=== PATIENT | female | born 1955 | race Caucasian/White ===

== ENCOUNTER → 2016-10-15 | Outpatient (CLI) | payer OTHER ==
[2016-08-26 14:27] VITALS: BP 154/82
[~2016-10-15] MED LIST: ALPR0.5T6 PO; AMLO2.5T PO; ASPI81TA2 PO; ATOR40TA59 PO; AZEL205.2 NS; CEFP200T PO; CHOL10002 PO; CLOP75TA PO; DEXA4TAB PO; DOXY100T PO; FOLI1TAB16 PO; INSU100I13 SQ; INSU200I SQ; LEVO100T5 PO; LISI40TA PO; METO50TA2 PO; ONDA8TAB12 PO; SERT100T8 PO; VENTOLIN HFA18 GM IH; VENTOLIN HFA18 GM INH; VITA100T7 PO
--- NOTE | 2016-10-15 12:39 | CARD ---
APPROVED REPORT EXAM: Two-dimensional and M-mode echocardiogram with Doppler and color Doppler. Other Information Quality : Good INDICATION Lung Cancer 2D DIMENSIONS RVDd3.1 (2.9-3.5cm)Left Atrium(2D)3.3 (1.6-4.0cm) IVSd1.1 (0.7-1.1cm)Aortic Root(2D)3.1 (2.0-3.7cm) LVDd4.5 (3.9-5.9cm)LVOT Diameter2.0 (1.8-2.4cm) PWd1.1 (0.7-1.1cm)LVDs3.2 (2.5-4.0cm) FS (%) 29.3 %SV53.4 ml LVEF(%)56.3 (>50%) Aortic Valve AoV Peak Harvinder.152.0cm/sAoV VTI30.9cm AO Peak GR.9.2mmHgLVOT Peak Harvinder.77.0cm/s LVOT VTI 18.88cmAO Mean GR.5mmHg MESHA (VMAX)1.27jr4TOR (VTI)1.90cm2 Mitral Valve MV E Lnbtmtxk70.1cm/sMV DECEL OETK010vj MV A Ivfmnspl48.3cm/sMV FYK45qo E/A Ratio0.8MVA (PHT)2.77cm2 TDI E/Lateral E'19.8E/Medial E'17.4 Tricuspid Valve TR P. Pnfwkqcq517jg/sRAP UTYVOGPT2naJy TR Peak Gr.33jpWsLVXY19vyTb Pulmonary Vein S1 Vgusynws79.7cm/sD2 Exgeeoya61.6cm/s PVa jsqayxhw451qzgu LEFT VENTRICLE The left ventricle is normal size. There is normal left ventricular wall thickness. The left ventricu lar systolic function is normal and the ejection fraction is within normal range. The Ejection Fracti on is 55-60%. There is normal LV segmental wall motion. Transmitral Doppler flow pattern is Grade I-a bnormal relaxation pattern. RIGHT VENTRICLE The right ventricle is normal size. The right ventricular systolic function is normal. ATRIA The left atrium size is normal. The right atrium size is normal. The interatrial septum is intact wit h no evidence for an atrial septal defect or patent foramen ovale as noted on 2-D or Doppler imaging. AORTIC VALVE The aortic valve is calcified but opens well. Doppler and Color Flow revealed no significant aortic r egurgitation. There is no significant aortic valvular stenosis. MITRAL VALVE The mitral valve is normal in structure and function. There is no evidence of mitral valve prolapse. There is no mitral valve stenosis. Doppler and Color-flow revealed mild mitral regurgitation. TRICUSPID VALVE The tricuspid valve is normal in structure and function. Doppler and Color Flow revealed mild tricusp id regurgitation. There is mild pulmonary hypertension. The PA pressure was estimated at 32 mmHg. The re is no tricuspid valve stenosis. PULMONIC VALVE The pulmonary valve is normal in structure and function. Doppler and Color Flow revealed trace to mil d pulmonic valvular regurgitation. There is no pulmonic valvular stenosis. GREAT VESSELS The aortic root is normal in size. The ascending aorta is normal in size. The IVC is dilated and diana apses >50% with inspiration. PERICARDIAL EFFUSION There is a large circumferential pericardial effusion without clear evidence of tamponade. Critical Notification Critical Value: No <Conclusion> The left ventricular systolic function is normal and the ejection fraction is within normal range. Th e Ejection Fraction is 55-60%. There is normal LV segmental wall motion. There is a large circumferential pericardial effusion without clear evidence of tamponade.
== END | disposition home or self-care (01) ==
LOC: ECHO 07:33
PROVIDERS: ATTEND Internal Medicine Hematology & Oncology
DX: I70.0 Atherosclerosis of aorta (principal); I34.0 Nonrheumatic mitral (valve) insufficiency; I27.2 Other secondary pulmonary hypertension; I07.1 Rheumatic tricuspid insufficiency; Z85.118 Personal history of other malignant neoplasm of bronchus and lung
CPT/HCPCS: 93306

== ENCOUNTER 2016-10-21 06:29 | Outpatient (CLI) | payer OTHER ==
[~2016-10-21] VITALS: Ht 177.8 cm; Wt 109.3 kg
[2016-10-21] VITALS (10 sets, daily range): BP systolic 144–177; BP diastolic 75–92
[~2016-10-21 06:29] MED LIST changes: +CLON0.1T PO; +FEXO1TAB31 PO; +FURO-69 PO; +HYDR1TAB12 PO
[2016-10-21 07:00] LABS: HEMATOCRIT 29.5 % (36.0-47.0); HEMOGLOBIN 9.8 g/dL (12.0-15.5); RED BLOOD COUNT 2.8 x10^6/uL (3.50-5.40); RED CELL DISTRIBUTION WIDTH 16.4 % (11.5-14.5)
[2016-10-21 07:04] LABS: CALCIUM 9.1 mg/dL (8.5-10.1); CREATININE 1.8 mg/dL (0.6-1.0); GFR 28.5; POTASSIUM 4.4 mmol/L (3.5-5.1)
[2016-10-21 07:11] LABS: INR 1.2 (0.8-1.1); PROTHROMBIN TIME PATIENT 14.7 SEC (11.7-14.0)
[2016-10-21] MEDS ORDERED: MIDAZOLAM HCL/PF 5 MG/5 ML VIAL ONE (08:04)
[2016-10-21] MEDS ORDERED: FENTANYL PF 250 MCG/5 ML VIAL. ONE (08:04)
[2016-10-21] MEDS ORDERED: LIDOCAINE 2% 20 ML VIAL. ONE (08:28)
--- NOTE | 2016-10-21 08:29 | PDOC ---
MODERATE SEDATION ASSESSMENT RISKS/ALTERNATIVES Risks/Alternatives Risks and alternatives of this type of sedation and procedure discussed with: RISK/ALTERNATIVES: Patient H & P ON CHART H & P H & P on chart and reviewed for co-morbid conditions and appropriate labs. H&P ON CHART: Yes STATUS PREG STATUS ASSESSED: N/A MEDS/ALLERGIES REVIEWED Meds/Allergies Reviewed Medications and Allergies including time and route of recently administered narcotics and sedatives. MEDS/ALLERGIES REVIEWED: Yes ASA RATING ASA RATING: III AIRWAY ASSESSMENT Airway Assessment Airway patency, oral function limitations, presence of caps, crowns, dentures, partials, and ability to extend neck assessed. AIRWAY ASSESSMENT: Yes MALLAMPATI SCORE MALLAMPATI SCORE: II PRE-SEDATION ASSESSMENT PRE-SEDATION ASSESSMENT: Yes NOVA WRIGHT MD Oct 21, 2016 08:29
[2016-10-21] MEDS ORDERED: FENTANYL PF 250 MCG/5 ML VIAL. IV ONE (08:45)
[2016-10-21] MEDS ORDERED: MIDAZOLAM HCL/PF 5 MG/5 ML VIAL IV ONE (08:45)
[2016-10-21] MEDS ORDERED: LIDOCAINE 2% 20 ML VIAL. IJ ONE (08:45)
--- NOTE | 2016-10-21 09:49 | CARD ---
APPROVED REPORT Procedure(s) performed: Pericardiocentesis HISTORY The patient is a 61 year-old female with a history of : metastatic lung cancer presenting for diagnos tic and therapeutic pericardiocentesis. . PROCEDURE NARRATIVE After appropriate informed consent and exhalation of the risks and benefits of the procedure the von ent was brought to the catheterization laboratory. Preprocedural echocardiography from a subcostal v iew demonstrated a 27 m circumferential pericardial effusion. Therefore the procedure was then start ed. The subcostal area and the chest wall were prepped in usual sterile fashion. Subsequently, a 22 -gauge needle was used to anesthetize the skin and subcutaneous structures with 2% lidocaine. Next a n 18-gauge needle was used to enter the pericardial space and clear fluid was drawn. Subsequently a 0.035 inch guidewire was advanced through the pericardial space and placement was confirmed with fluo roscopy. Next, a 12 Romanian pericardial catheter was placed in the ParaGardand the excess fluid was r emoved. Approximately 900 mL of straw-colored fluid was removed and post pericardiocentesis echocard iogram demonstrated resolution of the effusion. The patient tolerated the procedure well and there w ere no immediate complications. The pericardial drain was then removed and the entry site was covere d with sterile dressing. Conclusion Successful pericardiocentesis via the subcostal approach with removal approximately 900 mL of straw-c olored fluid sent for cytology and laboratory analysis. Recommendations Primary referring primary oncologist Dr. Ibarra
--- NOTE | 2016-10-21 10:41 | RAD ---
EXAM: Chest, single view. HISTORY: Paracentesis. COMPARISON: 02/05/2016. FINDINGS: A frontal view of the chest is obtained. There are small right and ohznz-pg-gccfarie left pleural effusions, similar compared to the prior study. There is bilateral lower lobe atelectasis. The cardiac silhouette is upper normal in size, likely due to portable technique.. There is a right chest wall port catheter with the tip in the superior cavoatrial junction. IMPRESSION: Stable small right and tbfsx-qo-zrzbsxzn left pleural effusions with lower lobe atelectasis.
[2016-10-21 12:33] LABS: BF CLARITY CLEAR; BF COLOR YELLOW
[2016-10-21] MEDS ORDERED: HEPARIN PF 500 UNIT/5 ML DISP.SYRIN. IV ONE ×2 (12:42→12:45)
--- NOTE | 2016-10-21 13:14 | CARD ---
APPROVED REPORT EXAM: Two-dimensional subcostal and apical limited echocardiogram Other Information Quality : GoodHR: 99bpm Rhythm : NSR INDICATION Pericardial Effusion GREAT VESSELS Not assessed PERICARDIAL EFFUSION There is a large circumferential pericardial effusion. Critical Notification Critical Value: No <Conclusion> Limited subcost pictures reveal large pericardial effusion pre-procedure.
--- NOTE | 2016-10-21 13:15 | CARD ---
APPROVED REPORT EXAM: Two-dimensional and M-mode echocardiogram with Doppler and color Doppler. Other Information Quality : GoodHR: 64bpm Rhythm : NSR INDICATION Pre-Op S/P pericardiocenthesis GREAT VESSELS Not assessed PERICARDIAL EFFUSION There is no evidence of significant pericardial effusion. Critical Notification Critical Value: No <Conclusion> Post pericardiocentesis limited subcostal and apical images demonstrate no evidence of effusion.
--- NOTE | 2016-10-25 13:21 | PATHOLOGY ---
CYTOPATHOLOGY REPORT CLINICAL HISTORY: Pericardial effusion. SPECIMEN(S) RECEIVED: A.Pericardial fluid FINAL DIAGNOSIS: Pericardial fluid, ThinPrep and cell block: - Atypical cells identified. - Focally atypical reactive mesothelial cells and few inflammatory cells identified. COMMENT: Sections of the pericardial fluid reveal a few atypical cells, focally reactive mesothelial cells, and few inflammatory cells. Immunoperoxidase stains for Tag72 and calretinin are obtained on the cell block and yields the following results: Calretinin: atypical cells positive Tag72: atypical cells negative The immunophenotypic findings are supportive of the diagnosis of atypical reactive mesothelial cells. There is no evidence of malignancy. (JPM:all:mgr; d/t: 10/25/2016) Special Stains Performed: Immunoperoxidase stains for Calretinin, B72.3. PATHOLOGIST: Yahir Falcon M.D. REPORT ELECTRONICALLY SIGNED BY: Yahir Falcon M.D. DATE/TIME: 10/25/2016 13:20 GROSS PATHOLOGY: A. Pericardial fluid: The specimen is submitted unfixed, labeled "Roselyn Landeros". Received by the Cytology Department is 45 mL of clear yellow fluid. One ThinPrep slide and a cell block were prepared. (clt 10.21.2016) CORE CHECKER(S): DAVID Smith([facility]) INITIAL CPT CODE(S): A; 91438, 57949, 77856, 06419 Professional services performed [place] [facility] [place] [address] Technical services performed by [facility] at [address] [place] [address], [address], [place] [address]. CC: Dr. Joseph Rizzo PATIENT: ROSELYN LANDEROS /AGE: 1 1955 (Age: 61) SEX: F PATIENT #: [id number] ALT CASE #: SPECIMEN COLLECTION DATE: 10/21/2016 SPECIMEN RECEIVED DATE: 10/21/[address] [facility] [address] [place] [address], [address] [place] [address] PHONE: [phone] DIRECTOR: Dakota Barnes M.D. * * * END OF REPORT * * *
== END 2016-10-21 13:00 | disposition home or self-care (01) ==
LOC: CCL 06:29
PROVIDERS: ATTEND Internal Medicine Cardiovascular Disease
DX: I31.3 Pericardial effusion (noninflammatory) (principal); I50.9 Heart failure, unspecified; I10 Essential (primary) hypertension; E11.9 Type 2 diabetes mellitus without complications; E03.9 Hypothyroidism, unspecified; F41.9 Anxiety disorder, unspecified; F32.9 Major depressive disorder, single episode, unspecified; F17.200 Nicotine dependence, unspecified, uncomplicated; D64.9 Anemia, unspecified; Z08 Encounter for follow-up examination after completed treatment for malignant neoplasm
CPT/HCPCS: 36415; 71010; 80048; 82945; 83615; 83986; 84157; 85027; 85610; 85730; 87071; 87075; 87205; 88112; 88305; 88341; 88342; 89050; 93306; 93308; C1892; J2250; J3010; G0641

== ENCOUNTER → 2016-12-06 | Outpatient (CLI) | payer OTHER ==
[2016-10-21 07:07] VITALS: BP 163/87
[~2016-12-06] MED LIST changes: +IOHEXOL 240 MG/ML 50ML VIAL. PO ONE
--- NOTE | 2016-12-06 12:21 | RAD ---
CT of the chest, abdomen and pelvis without contrast, 12/06/2016: History: Lung cancer Multidetector CT imaging was performed without IV contrast as requested. Oral contrast material was given for GI tract opacification. Comparison is made to a study from 10/06/2016. There is a large pericardial effusion similar to that seen on the previous study. A right Port-A-Cath extends to the level of the atriocaval junction. There is calcific plaquing of the aorta and coronary arteries. No mediastinal adenopathy is seen. There is a small to moderate volume of bilateral pleural fluid. On the left there is ongoing partial atelectasis and infiltrate in the left lower lobe. This is unchanged since the previous study. The left upper lobe is well expanded with only minimal scarring or atelectasis in the inferior lingular region. There is mild scarring over the pulmonary apices. A few additional scattered linear parenchymal scars are seen. There is only mild atelectasis posteriorly in the right lower lobe associated with the right pleural effusion. The unopacified liver shows no abnormality. No gallbladder abnormality is seen. The pancreas is unremarkable. The spleen is of normal size. The unopacified kidneys show no abnormality. No adrenal abnormality is detected. There is moderate aortoiliac calcific plaquing. No abdominal or pelvic adenopathy is seen. The bowel loops are not dilated. No free fluid is evident in the abdomen or pelvis. There appears to be mild ongoing edema and congestion in the mesentery. There is mild subcutaneous edema in the flank regions. Scattered blastic bony lesions are seen, most prominent in the pelvis. These appear to be unchanged. IMPRESSION: 1. Unchanged large pericardial effusion. 2. Unchanged small to moderate size bilateral pleural effusions. 3. Moderate underlying atelectasis and consolidation in the left lower lobe also appears unchanged. 4. Stable blastic bony metastatic disease. PQRS Compliance Statement: One or more of the following individualized dose reduction techniques were utilized for this examination: 1. Automated exposure control 2. Adjustment of the mA and/or kV according to patient size 3. Use of iterative reconstruction technique
== END | disposition home or self-care (01) ==
LOC: CT 09:07
PROVIDERS: ATTEND Internal Medicine Hematology & Oncology
DX: C79.51 Secondary malignant neoplasm of bone (principal); I31.3 Pericardial effusion (noninflammatory); J90 Pleural effusion, not elsewhere classified; J98.11 Atelectasis; C34.12 Malignant neoplasm of upper lobe, left bronchus or lung
CPT/HCPCS: 71250; 74176; Q9966

== ENCOUNTER → 2017-02-18 | Outpatient (CLI) | payer OTHER ==
[2016-10-21 07:07] VITALS: BP 163/87
[~2017-02-18] MED LIST changes: -IOHEXOL 240 MG/ML 50ML VIAL. PO ONE
--- NOTE | 2017-02-18 14:29 | CARD ---
APPROVED REPORT EXAM: Two-dimensional and M-mode echocardiogram with Doppler and color Doppler. Other Information Quality : GoodHR: 80bpm Rhythm : NSR INDICATION Pericardial effusion 2D DIMENSIONS RVDd3.0 (2.9-3.5cm)Left Atrium(2D)4.0 (1.6-4.0cm) IVSd1.3 (0.7-1.1cm)Aortic Root(2D)3.2 (2.0-3.7cm) LVDd4.7 (3.9-5.9cm)LVOT Diameter2.3 (1.8-2.4cm) PWd1.3 (0.7-1.1cm)LVDs3.4 (2.5-4.0cm) FS (%) 27.1 %SV54.0 ml LVEF(%)52.7 (>50%) Aortic Valve AoV Peak Harvinder.175.2cm/sAoV VTI37.5cm AO Peak GR.12.3mmHgLVOT Peak Harvinder.87.5cm/s AO Mean GR.7mmHgAVA (VMAX)2.02cm2 Mitral Valve MV E Fzmgtfnz980.7cm/sMV E Peak Gr.7mmHg MV DECEL [id number] A Lzzomdfn940.8cm/s MV E Mean Gr.3mmHgE/A Ratio0.9 MV A Cbfeggjg97ef Pulmonary Valve PV Peak Rbxvqdva38.7cm/s Tricuspid Valve TR P. Bhapbanj762qz/sTR Peak Gr.28mmHg Pulmonary Vein S1 Rvrhhner24.5cm/sD2 Rcxtlojo41.3cm/s PVa czjhppnr69wjty LEFT VENTRICLE The left ventricle is normal size. There is normal left ventricular wall thickness. The left ventricu lar systolic function is normal and the ejection fraction is within normal range. The Ejection Fracti on is 55-60%. RIGHT VENTRICLE The right ventricle is normal size. There is normal right ventricular wall thickness. The right ventr icular systolic function is normal. ATRIA The left atrium is mildly dilated. The right atrium size is normal. The interatrial septum is intact with no evidence for an atrial septal defect or patent foramen ovale as noted on 2-D or Doppler imagi ng. AORTIC VALVE The aortic valve is mildly sclerotic. The aortic valve is trileaflet. Doppler and Color Flow revealed no significant aortic regurgitation. There is no significant aortic valvular stenosis. MITRAL VALVE The mitral valve leaflets are mildly thickened. There is no evidence of mitral valve prolapse. There is no mitral valve stenosis. Doppler and Color Flow revealed mild to moderate mitral regurgitation. TRICUSPID VALVE Doppler and Color Flow revealed mild tricuspid regurgitation. The pulmonary artery systolic pressure is estimated at 31 mmHg. There is mild pulmonary hypertension. PULMONIC VALVE Doppler and Color Flow revealed trace pulmonic valvular regurgitation. There is no pulmonic valvular stenosis. GREAT VESSELS The aortic root is normal in size. The ascending aorta is normal in size. The pulmonary artery is nor mal. The IVC is normal in size and collapses >50% with inspiration. PERICARDIAL EFFUSION There is a large circumferential pericardial effusion. There is evidence of mild diastolic compressio n of the right atrium. Critical Notification Physician Notified Date: 02/18/2017 Time: 14:07 Physician Name:Luca Arellano Critical Value: Yes <Conclusion> The left ventricular systolic function is normal and the ejection fraction is within normal range. Th e Ejection Fraction is 55-60%. There is a large circumferential pericardial effusion. There is evidence of mild diastolic compressio n of the right atrium.
== END | disposition home or self-care (01) ==
LOC: ECHO 12:33
PROVIDERS: ATTEND Internal Medicine Cardiovascular Disease
DX: I08.1 Rheumatic disorders of both mitral and tricuspid valves (principal)
CPT/HCPCS: 93306

== ENCOUNTER → 2017-02-24 | Outpatient (CLI) | payer OTHER ==
[2016-10-21 07:07] VITALS: BP 163/87
[~2017-02-24] MED LIST changes: +AMLO10TA2 PO; +CALC600T4 PO; +INSU100V10 IJ; +IOHEXOL 240 MG/ML 50ML VIAL. PO ONE; +LEVO175T5 PO
--- NOTE | 2017-02-24 11:37 | RAD ---
Examination: CT chest abdomen pelvis without contrast History: History of malignant neoplasm of the upper lobe lung, follow-up Comparison: 12/06/2016 Technique: Axial CT images of the chest abdomen pelvis were performed without contrast. Coronal, Sagittal reformats were performed PQRS Compliance Statement: One or more of the following individualized dose reduction techniques were utilized for this examination: 1. Automated exposure control 2. Adjustment of the mA and/or kV according to patient size 3. Use of iterative reconstruction technique Findings: Right-sided Port-A-Cath is identified. Mild cardiomegaly. Diffuse aortic calcifications identified A large pericardial effusion again identified. Mild emphysematous changes identified in the apical lungs. 3 mm nodule identified in the right lower lobe of the lungs similar to prior exam. Small bilateral pleural effusions with bibasal lung airspace opacities likely atelectasis or infiltrate at grossly similar to prior exam. Consolidation changes identified in the left lung base is unchanged compared to prior exam. Examination is limited lack of IV contrast. The visualized noncontrasted liver, spleen, adrenals grossly appears unremarkable. The gallbladder is mildly distended. The stomach is mildly distended. The visualized pancreas grossly appears unremarkable. The small bowel is nondilated. Feces and gas noted throughout the colon. Few sigmoid colon diverticulosis identified. Mild mesenteric edema identified with presacral fat stranding identified in the region of the pelvis grossly similar to prior exam, nonspecific. The urinary bladder is mildly distended. There is mild thickened appearance of the wall of the sigmoid colon. Moderate aortic atherosclerosis. Sclerotic lesions identified in the sacrum and left iliac bone and right ischium grossly similar to prior exam. Sclerotic density is identified in the T5, T7 and T11 vertebral bodies are similar to prior exam probably metastasis. Impression: 1. Unchanged large pericardial effusion. 2. Small bibasal pleural effusions with left lower lobe lung consolidation changes grossly similar to prior exam. 3. Mild thickened appearance of the wall of the sigmoid colon is similar to prior exam, nonspecific could be chronic changes however colitis is not completely excluded. There is some fat stranding identified in the presacral region grossly similar to prior exam. 4. Stable sclerotic bony metastatic lesions.
== END | disposition home or self-care (01) ==
LOC: CT 08:43
PROVIDERS: ATTEND Internal Medicine Hematology & Oncology
DX: C34.12 Malignant neoplasm of upper lobe, left bronchus or lung (principal); C79.51 Secondary malignant neoplasm of bone
CPT/HCPCS: 71250; 74176; Q9966

== ENCOUNTER → 2017-02-24 | Outpatient (CLI) | payer OTHER ==
[2016-10-21 07:07] VITALS: BP 163/87
[~2017-02-24] MED LIST changes: -IOHEXOL 240 MG/ML 50ML VIAL. PO ONE
[2017-02-24 14:03] LABS: BASO % 1 % (0-3); EOS % 3 % (0-3); HEMATOCRIT 27.9 % (36.0-47.0); HEMOGLOBIN 9.4 g/dL (12.0-15.5); LYMPH # 0.8 x10^3/uL (1.0-4.8); LYMPH % 19 % (24-48); MEAN CORPUSCULAR HEMOGLOBIN 32 pg (25-35); MEAN CORPUSCULAR HGB CONC 34 g/dL (31-37); MEAN CORPUSCULAR VOLUME 95 fL (79-100); MONO % 11 % (0-9); NEUT % 66 % (31-73); PLATELET COUNT 169 x10^3/uL (140-400); RED BLOOD COUNT 2.95 x10^6/uL (3.50-5.40); RED CELL DISTRIBUTION WIDTH 14.3 % (11.5-14.5); WHITE BLOOD COUNT 4.4 x10^3/uL (4.0-11.0)
[2017-02-24 14:15] LABS: POTASSIUM 4.3 mmol/L (3.5-5.1)
== END | disposition home or self-care (01) ==
LOC: SURGPAT 13:05
PROVIDERS: ATTEND Thoracic Surgery (Cardiothoracic Vascular Surgery)
DX: Z01.812 Encounter for preprocedural laboratory examination (principal)
CPT/HCPCS: 36415; 80051; 85027

== ENCOUNTER 2017-02-25 07:14 | Inpatient (IN) | payer OTHER ==
[~2017-02-25] VITALS: Ht 177.8 cm; Wt 99.8 kg
[2017-02-25] VITALS (12 sets, daily range): BP systolic 137–164; BP diastolic 60–73
[~2017-02-25 07:14] MED LIST changes: -AMLO10TA2 PO; +HYDROmorphone 2 MG/ML VIAL IV PRN; +IV RINGERS,LACTATED 1000ML 1,000 ML IV SCH; +LIDOCAINE 1% 1 ML SYRINGE. ID PRN; +ONDANSETRON PF 4 MG/2 ML VIAL. IV PRN; +PROCHLORPERAZINE 10 MG/2 ML VIAL. IV PRN; +fentaNYL PF VIAL 100 MCG/2 ML VIAL IV PRN
[2017-02-25] MEDS ORDERED: LIDOCAINE 2% PF Vial for OR 5 ML VIAL. ONE (08:24)
[2017-02-25] MEDS ORDERED: PROPOFOL 0 ML IV ONE (08:24)
[2017-02-25] MEDS ORDERED: BUPIVACAINE 0.5% 50 ML VIAL. ONE (09:06)
[2017-02-25] MEDS ORDERED: LIDOCAINE 1% 20 ML VIAL. ONE (09:07)
[2017-02-25] MEDS ORDERED: ONDANSETRON PF 4 MG/2 ML VIAL. ONE ×2 (09:21→10:14)
[2017-02-25] MEDS ORDERED: fentaNYL PF VIAL 100 MCG/2 ML VIAL ONE (09:21)
[2017-02-25] MEDS ORDERED: ROCURONIUM 50 MG/5 ML VIAL. ONE (09:21)
[2017-02-25] MEDS ORDERED: ETOMIDATE 20 MG/10 ML VIAL. IV ONE (09:44)
[2017-02-25] MEDS ORDERED: SUCCINYLCHOLINE 200 MG/10 ML VIAL. ONE (09:44)
[2017-02-25] MEDS ORDERED: MIDAZOLAM HCL/PF 2 MG/2 ML VIAL. ONE (09:49)
[2017-02-25] MEDS ORDERED: DEXAMETHASONE SOD PHOS 20 MG/5 ML VIAL. ONE (10:14)
[2017-02-25] MEDS ORDERED: GLYCOPYRROLATE 1 MG/5 ML VIAL. ONE (10:48)
[2017-02-25] MEDS ORDERED: NEOSTIGMINE METHYLSULFATE 5 MG/5 ML SYRINGE. ONE (10:48)
[2017-02-25] MEDS ORDERED: SEVOFLURANE 61 TO 120 MINUTES. IH ONE (10:59)
--- NOTE | 2017-02-25 11:24 | CARD ---
APPROVED REPORT EXAM: Two-dimensional and M-mode echocardiogram with Doppler and color Doppler. Other Information Quality : Good INDICATION Pericardial effusion/Pericardial window GREAT VESSELS na PERICARDIAL EFFUSION Multiple subcostal images were obtained during pericardial window procedure By Dr. Mcgee. No signi ficant residual pericardial fluid was noted at time of the examination. Critical Notification Critical Value: No <Conclusion> No significant residual pericardial effusion after pericardial window placement
--- NOTE | 2017-02-25 11:27 | PDOC1 ---
History and Physical Date of Admission Date of Admission DATE: 02/25/17 TIME: 11:22 Source Source: Chart review, Patient History of Present Illness History of Present Illness Ms Landeros is a 61-year-old female who in late 2014 developed increasing shortness of breath. She was found to have a left-sided pleural effusion and subsequently underwent a left-sided thoracentesis with removal of 1500 mL's. Cytology demonstrated malignant cells consistent with non-small cell carcinoma favoring adenocarcinoma. She required a second thoracentesis for recurrent pleural effusion. Her staging evaluation demonstrated a left upper lobe 2.2cm mass. Bone scan revealed uptake at T10 and left proximal femur consistent with metastatic disease. She underwent chemotherapy with carboplatin, Alimta, and Avastin. She subsequently developed a symptomatic pericardial effusion requiring a pericardiocentesis 3 months ago. The pericardial effusion has now reoccurred and the patient has become increasingly symptomatic with shortness of breath on minimal exertion. She is here today for a pericardial window. Past Medical History Heme/Onc: Cancer Endocrine: Diabetes Past Surgical History Past Surgical History: Other Family History Family History: No Significant Current Medications Current Medications Current Medications Ondansetron HCl (Zofran) 4 mg PRN Q6HRS PRN IV NAUSEA/VOMITING; Start 02/25/17 at 07:00; Stop 02/26/17 at 06:59 Fentanyl Citrate (Fentanyl 2ml Vial) 25 mcg PRN Q5MIN PRN IV MILD PAIN; Start 02/25/17 at 07:00; Stop 02/26/17 at 06:59 Fentanyl Citrate (Fentanyl 2ml Vial) 50 mcg PRN Q5MIN PRN IV MODERATE PAIN; Start 02/25/17 at 07:00; Stop 02/26/17 at 06:59 Morphine Sulfate 1 mg PRN Q10MIN PRN IV SEVERE PAIN; Start 02/25/17 at 07:00; Stop 02/26/17 at 06:59 Ringer's Solution 1,000 ml @ 30 mls/hr Q24H IV Last administered on 02/25/17 09:26; Start 02/25/17 at 07:00; Stop 02/25/17 at 18:59 Lidocaine HCl 2 ml PRN 1X PRN ID PRIOR TO IV START Last administered on 09:26; Start 02/25/17 at 07:00; Stop 02/26/17 at 06:59 Hydromorphone HCl (Dilaudid) 0.5 mg PRN Q10MIN PRN IV SEV PAIN, Second choice; Start 02/25/17 at 07:00; Stop 02/26/17 at 06:59 Prochlorperazine Edisylate (Compazine) 5 mg PACU PRN PRN IV NAUSEA, MRX1; Start 02/25/17 at 07:00; Stop 02/26/17 at 06:59 Cefazolin Sodium 50 ml @ 100 mls/hr 1X PREOP PRN IV PRIOR TO PROCEDURE; Start 02/25/17 at 06:00; Stop 02/25/17 at 18:00 Propofol 0 ml @ As Directed STK-MED ONCE IV ; Start 02/25/17 at 08:24; Stop at 08:25; Status DC Lidocaine HCl (Lidocaine Pf 2% Vial) 5 ml STK-MED ONCE .ROUTE ; Start 02/25/17 at 08:24; Stop 02/25/17 at 08:25; Status DC Bupivacaine HCl (Marcaine 0.5%) 50 ml STK-MED ONCE .ROUTE ; Start 02/25/17 at 09 :06; Stop 02/25/17 at 09:07; Status DC Lidocaine HCl 20 ml STK-MED ONCE .ROUTE ; Start 02/25/17 at 09:07; Stop at 09:08; Status DC Ondansetron HCl (Zofran) 4 mg STK-MED ONCE .ROUTE ; Start 02/25/17 at 09:21; Stop 02/25/17 at 09:22; Status DC Fentanyl Citrate (Fentanyl 2ml Vial) 100 mcg STK-MED ONCE .ROUTE ; Start at 09:21; Stop 02/25/17 at 09:22; Status DC Rocuronium [place] (Zemuron) 50 mg STK-MED ONCE .ROUTE ; Start 02/25/17 at 09:21 ; Stop 02/25/17 at 09:22; Status DC Etomidate (Amidate) 20 mg STK-MED ONCE IV ; Start 02/25/17 at 09:44; Stop at 09:45; Status DC Succinylcholine Chloride (Anectine) 200 mg STK-MED ONCE .ROUTE ; Start 5/19/17 at 09:44; Stop 02/25/17 at 09:45; Status DC Midazolam HCl (Versed) 2 mg STK-MED ONCE .ROUTE ; Start 02/25/17 at 09:49; Stop 02/25/17 at 09:50; Status DC Ondansetron HCl (Zofran) 4 mg STK-MED ONCE .ROUTE ; Start 02/25/17 at 10:14; Stop 02/25/17 at 10:15; Status DC Dexamethasone Sodium Phosphate (Decadron) 20 mg STK-MED ONCE .ROUTE ; Start at 10:14; Stop 02/25/17 at 10:15; Status DC Glycopyrrolate (Robinul) 1 mg STK-MED ONCE .ROUTE ; Start 02/25/17 at 10:48; Stop 02/25/17 at 10:49; Status DC Neostigmine Methylsulfate 5 mg STK-MED ONCE .ROUTE ; Start 02/25/17 at 10:48; Stop 02/25/17 at 10:49; Status DC Sevoflurane (Ultane) 60 ml STK-MED ONCE IH ; Start 02/25/17 at 10:59; Stop 02/25 at 11:00; Status DC Active Scripts Active Reported Levothyroxine Sodium 175 Mcg Tablet 1 Tab PO DAILY Calcium (Calcium Carbonate) 600 Mg Tablet 800 Mg PO DAILY Novolin R (Insulin Regular, Human) 100 Unit/1 Ml Vial 0 IJ Vicodin 5-300 Mg Tablet (Hydrocodone Bit/Acetaminophen) 1 Each Tablet 1 Each PO Q6HRS PRN Zofran Odt (Ondansetron) 8 Mg Tab.rapdis 8 Mg PO PRN Q8HRS Folic Acid 1 Mg Tablet 1 Mg PO DAILY Azelastine HCl 205.5 Mcg/0.137 Ml [place].pump 205.5 Mcg NS PRN PRN Alprazolam 0.5 Mg Tablet 0.5 Mg PO PRN Q6HRS PRN Ventolin Hfa Inhaler (Albuterol Sulfate) 18 Gm Hfa.aer.ad 2 Puff IH PRN Q4-6HRS Vitamin D (Cholecalciferol (Vitamin D3)) 1,000 Unit Tablet 1,000 Unit PO DAILY Metoprolol Tartrate 50 Mg Tablet 1 Tab PO BID Sertraline Hcl 100 Mg Tablet 100 Mg PO 2TABS PO DAILY Aspirin 81 Mg Tab.chew 1 Tab PO DAILY Clopidogrel (Clopidogrel Bisulfate) 75 Mg Tablet 1 Tab PO DAILY Atorvastatin Calcium 40 Mg Tablet 1 Tab PO DAILY Lantus Solostar (Insulin Glargine,Hum.rec.anlog) 100 Unit/1 Ml Insuln.pen 10 Unit SQ QHS Humalog Kwikpen (Insulin Lispro) 200 Unit/1 Ml Insuln.pen 0 SQ TIDAC Allergies Allergies: Coded Allergies: No Known Drug Allergies (Unverified , 02/25/17) ROS General: No: Chills, Night Sweats, Fatigue, Malaise, Appetite PSYCHOLOGICAL ROS: No: Anxiety, Behavioral Disorder, Concentration difficultie , Decreased libido, Depression, Disorientation, Hallucinations, Hostility, Irritablity, Memory difficulties, Mood Swings, Obsessive thoughts, Physical abuse, Sexual abuse, Sleep disturbances, Suicidal ideation Eyes: No Blurry vision, No Decreased vision, No Double vision, No Dry eyes, No Excessive tearing, No Eye Pain, No Itchy Eyes, No Loss of vision, No Photophobia , No Scotomata, No Uses contacts, No Uses glasses HEENT: No: Heacaches, Visual Changes, Hearing change, Nasal congestion, Nasal discharge, Oral lesions, Sinus pain, Sore Throat, Epistaxis, Sneezing, Snoring, Tinnitus, Vertigo, Vocal changes ALLERGY AND IMMUNOLOGY: No: Hives, Insect Bite Sensitivity, Itchy/Watery Eyes, Nasal Congestion, Post Nasal Drip, Seasonal Allergies Hematological and Lymphatic: No: Bleeding Problems, Blood Clots, Blood Transfusions, Brusing, Night Sweats, Pallor, Swollen Lymph Nodes Breast: No New/Changing Breast Lumps, No Nipple changes, No Nipple discharge Respiratory: YES: Cough, Shortness of breath, No: Hemoptysis, Orthopnea, Pleuritic Pain, SOB with excertion, Sputum Changes , Stridor, Tachypnea, Wheezing Cardiovascular: No Chest Pain, No Palpitations, No Orthopnea, No Paroxysmal Noc. Dyspnea, No Edema, No Lt Headedness Gastrointestinal: No Nausea, No Vomiting, No Abdominal Pain, No Diarrhea, No Constipation, No Melena, No Hematochezia Genitourinary: No Dysuria, No Frequency, No Incontinence, No Hematuria, No Retention, No Discharge, No Urgency, No Pain, No Flank Pain Musculoskeletal: No Gait Disturbance, No Joint Pain, No Joint Stiffness, No Joint Swelling, No Muscle Pain, No Muscular Weakness, No Pain In:, No Swelling In: Neurological: No Behavorial Changes, No Bowel/Bladder ControlChng, No Confusion , No Dizziness, No Gait Disturbance, No Headaches, No Impaired Coord/balance, No Memory Loss, No Numbness/Tingling, No Seizures, No Speech Problems, No Tremors, No Visual Changes, No Weakness Skin: No Dry Skin, No Eczema, No Hair Changes, No Lumps, No Mole Changes, No Mottling, No Nail Changes, No Pruritus, No Rash, No Skin Lesion Changes, No Acne Physical Exam General: Alert, Oriented X3, No acute distress HEENT: Atraumatic, PERRLA Lungs: Clear to auscultation Heart: other (muffled heart sounds) Breasts: Normal Abdomen: Soft, No tenderness, No hepatosplenomegaly, No masses Rectal Exam: not examined PELVIC: Examination not indicated Extremities: No edema, Normal pulses Skin: No significant lesion Neuro: Normal gait, Normal speech, Strength at 5/5 X4 ext, Normal tone, Sensation intact, Cranial nerves 3-12 NL Psych/Mental Status: Mental status NL Vitals Vitals Vital Signs Date Time Temp Pulse Resp B/P (MAP) Pulse Ox O2 Delivery O2 Flow Rate FiO2 02/25/17 09:24 97.9 66 99 97.9 02/25/17 09:00 Room Air 02/25/17 08:11 20 157/68 Labs Labs Laboratory Tests Test 02/25/17 08:36 Glucose (Fingerstick) 317 mg/dL (70-99) Laboratory Tests Test 02/25/17 08:36 Glucose (Fingerstick) 317 mg/dL (70-99) VTE Prophylaxis Ordered VTE Prophylaxis Devices: Yes VTE Pharmacological Prophylaxi: Yes Assessment/Plan Assessment/Plan 61-year-old female, with stage IV lung cancer status post chemotherapy. She presents with a recurrent malignant pericardial effusion. She is presently undergone a pericardiocentesis. Plan for cystoscopy subxiphoid pericardial window. The risks, benefits and limitations of procedure have been explained to the patient who agrees to proceed. Informed consent has been obtained. The patient will be admitted following the procedure. Pericardial drain will be left. Okay to start aspirin today, Plavix tomorrow. YELENA JACKSON MD February 25, 2017 11:27
--- NOTE | 2017-02-25 11:31 | PDOC ---
BRIEF OPERATIVE NOTE Pre-Op Diagnosis Malignant pericardial effusion Shortness of breath Stage IV lung cancer Type 1 diabetes Post-Op Diagnosis Malignant pericardial effusion Shortness of breath Stage IV lung cancer Type 1 diabetes Procedure Performed Subxiphoid pericardial window Surgeon Patti Jackson MD Director Business Travel QASIM Gaytan Anesthesiologist Arley Littlejohn MD Anesthesia Type: General Blood Loss 5 mls IV Fluid N/A Urine Output N/A Specimens Obtained Pericardium for pathology Pericardial fluid for cytology, gram stain, aerobic and anaerobic culture Findings 1000 mL's of serous pericardial fluid drained No residual pericardial effusion on post drainage transthoracic echo Complications None Additional Remarks 24Fr GENET drain PATTI JACKSON MD February 25, 2017 11:31
[2017-02-25] MEDS: MORPHINE SULFATE 2 MG/ML DISP.SYRIN. IV PRN ×2 (11:33→12:50)
--- NOTE | 2017-02-25 11:33 | PDOC4 ---
Operative Note Operative Note Preoperative diagnosis Malignant pericardial effusion Shortness of breath Stage IV lung cancer Type 1 diabetes Postoperative diagnosis Malignant pericardial effusion Shortness of breath Stage IV lung cancer Type 1 diabetes Procedure Subxiphoid pericardial window Surgeon Patti Mcgee MD Tape Calender QASIM Gaytan Anesthesiologist Arley Littlejohn MD Anesthesia General Blood loss 5 mls IV fluids N/A Urine output N/A Specimens obtained Pericardium for pathology Pericardial fluid for cytology, gram stain, aerobic and anaerobic culture Findings 1000 mL's of serous pericardial fluid drained No residual pericardial effusion on post drainage transthoracic echo Complications None Additional remarks 24Fr GENET drain Indication Ms Landeros is a 61-year-old female who in late 2014 developed increasing shortness of breath. She was found to have a left-sided pleural effusion and subsequently underwent a left-sided thoracentesis with removal of 1500 mL's. Cytology demonstrated malignant cells consistent with non-small cell carcinoma favoring adenocarcinoma. She required a second thoracentesis for recurrent pleural effusion. Her staging evaluation demonstrated a left upper lobe 2.2cm mass. Bone scan revealed uptake at T10 and left proximal femur consistent with metastatic disease. She underwent chemotherapy with carboplatin, Alimta, and Avastin. She subsequently developed a symptomatic pericardial effusion requiring a pericardiocentesis 3 months ago. The pericardial effusion has now reoccurred and the patient has become increasingly symptomatic with shortness of breath on minimal exertion. She is here today for an elective pericardial window. The risks, benefits and limitations of the procedure were explained to the patient who agreed to proceed. Informed consent was obtained. Operation The patient's ID was confirmed using 2 unique identifies. The patient was then transferred to the operating room and placed supine on the table. Anesthesia was induced by the anesthesiologist and the airway was secured with an ET tube. An arterial line was placed uneventfully. Antibiotic prophylaxis was given. The anterior chest and upper abdomen were prepped and draped in the usual sterile surgical fashion. A timeout was then performed. A 5 cm vertical midline incision overlying the xiphoid process was made. The incision was deepened through the subcutaneous fat. The linea alba of the rectus sheath was identified and divided. The xiphoid process was identified and divided with Gonsalves scissors. The lower body of the sternum was retracted with [place]'s. Adipose tissue overlying the anterior pericardium was divided. Anterior pericardium was clearly identified and a large piece of the pericardium was excised and sent to pathology. The pericardial cavity was drained. There was 1000 MLS of straw-colored pericardial fluid. The fluid was sent for cytology, Gram stain, culture. We performed a transthoracic echo by placing a probe in a sterile sheath and this confirmed complete resolution of the pericardial effusion. I then left a 24 [place] GENET drain in the pericardial cavity and brought it through a separate stab incision in the upper midline of the abdomen. The GENET was secured with a #2 silk stitch. Hemostasis was achieved and confirmed. The fascia was reapproximated with 0 Vicryl. The subcutaneous tissues were reapproximated with 2-0 Vicryl and the epidermis with 4-0 Monocryl. Dermabond and a sterile dressing were then applied. At the end of procedure the instrument, sponge and needle counts were correct. Anesthesia was reversed, the patient was extubated and transferred to the PACU in stable condition having tolerated the procedure well. PATTI MCGEE MD February 25, 2017 11:33
[2017-02-25] MEDS ORDERED: METOCLOPRAMIDE HCL 10 MG/2 ML VIAL. IV PRN (11:45)
[2017-02-25] MEDS ORDERED: MORPHINE SULFATE 2 MG/ML DISP.SYRIN. IV PRN (11:45)
[2017-02-25] MEDS ORDERED: oxyCODONE/APAP 5/325 1 TAB TABLET PO PRN (11:45)
[2017-02-25] MEDS ORDERED: NALOXONE 0.4 MG/ML VIAL. IV PRN (11:45)
[2017-02-25] MEDS ORDERED: PROCHLORPERAZINE 10 MG/2 ML VIAL. IV PRN (11:45)
[2017-02-25] MEDS ORDERED: ONDANSETRON PF 4 MG/2 ML VIAL. IV PRN (11:45)
[2017-02-25] MEDS ORDERED: 0.9 % SODIUM CHLORIDE 10 ML DISP.SYRIN. IV PRN (11:45)
[2017-02-25] MEDS: ASPIRIN CHEWABLE 81 MG TABLET. PO SCH (14:01)
[2017-02-25] MEDS: ACETAMINOPHEN 325 MG TABLET. PO SCH ×2 (14:01→22:55)
[2017-02-25] MEDS: SERTRALINE 50 MG TABLET. PO SCH (15:00)
--- NOTE | 2017-02-25 15:01 | RAD ---
Portable chest, 02/25/2017: History: Lung cancer, post pericardial window Comparison is made to a study from 10/21/2016. A right Port-A-Cath extends to the level of the atriocaval junction. A new tube overlying the mid mediastinum poorly represents a pericardial drain. The cardiac silhouette is at the upper limits of normal in size, similar to that seen on the 10/21/2016 exam. The pulmonary vascularity is also at the upper limits of normal. There is a moderate ongoing left basilar opacity compatible with infiltrate and pleural fluid. Underlying tumor cannot be excluded. The amount of pleural fluid appears to have decreased since the previous study. The patient's known small right pleural effusion is not clearly visualized on this AP view. No significant right lung infiltrate is seen. IMPRESSION: 1. A right Port-A-Cath and a pericardial drain are in place as described above. 2. Borderline vascular congestion. 3. Ongoing left basilar infiltrate and pleural fluid, which appears slightly improved since 10/21/2016.
[2017-02-25] MEDS: oxyCODONE/APAP 5/325 1 TAB TABLET PO PRN ×2 (15:38→20:16)
[2017-02-25] MEDS: amLODIPine BESYLATE 10 MG TABLET PO SCH (15:39)
[2017-02-25] MEDS: INSULIN ASPART 300 UNITS/3 ML INSULN.PEN SQ SCH (18:02)
[2017-02-25] MEDS: SENNOSIDES/DOCUSATE 8.6/50MG TABLET. PO SCH (20:14)
[2017-02-25] MEDS: METOPROLOL TART IMMED RELEASE 50 MG TABLET. PO SCH (20:17)
[2017-02-25] MEDS ORDERED: INSULIN DETEMIR 300 UNITS/3 ML INSULN.PEN. SQ SCH (21:00)
[2017-02-25] MEDS ORDERED: ATORVASTATIN CALCIUM 40 MG TABLET. PO SCH (21:00)
[2017-02-25] MEDS ORDERED: CLON0.1T PO (21:33)
[2017-02-25] MEDS ORDERED: AMLO10TA2 PO (21:33)
[2017-02-25] MEDS ORDERED: ALPR0.5T6 PO (21:51)
[2017-02-25] MEDS ORDERED: ONDA8TAB12 PO (21:52)
[2017-02-26 02:55] VITALS: BP 127/63
[2017-02-26] MEDS: ACETAMINOPHEN 325 MG TABLET. PO SCH (05:36)
[2017-02-26 07:00] VITALS: BP 133/68
[2017-02-26] MEDS ORDERED: LEVOTHYROXINE 175 MCG TABLET PO SCH (07:00)
[2017-02-26] MEDS ORDERED: CLOPIDOGREL BISULFATE 75 MG TABLET PO SCH (08:00)
[2017-02-26] MEDS: ASPIRIN CHEWABLE 81 MG TABLET. PO SCH (08:08)
[2017-02-26] MEDS: METOPROLOL TART IMMED RELEASE 50 MG TABLET. PO SCH (08:09)
[2017-02-26] MEDS: SERTRALINE 50 MG TABLET. PO SCH (08:09)
[2017-02-26] MEDS: amLODIPine BESYLATE 10 MG TABLET PO SCH (08:11)
[2017-02-26] MEDS: INSULIN ASPART 300 UNITS/3 ML INSULN.PEN SQ SCH ×2 (08:12→12:35)
[2017-02-26] MEDS ORDERED: SERTRALINE 50 MG TABLET. PO SCH (09:00)
[2017-02-26] MEDS: SENNOSIDES/DOCUSATE 8.6/50MG TABLET. PO SCH (09:00)
[2017-02-26 10:58] VITALS: BP 138/55
[2017-02-26] MEDS: oxyCODONE/APAP 5/325 1 TAB TABLET PO PRN (12:28)
--- NOTE | 2017-02-26 14:38 | PDOC ---
Progress Note Subjective Subjective Doing well. Breathing much better. Pain from drain. No issues. 250 mls drainage from pericardial drain/24hr. ROS ROS No nausea No vomiting Moderate pain around tube No SOB No rash Vital Sign Vital Signs Vital Signs Date Time Temp Pulse Resp B/P (MAP) Pulse Ox O2 Delivery O2 Flow Rate FiO2 02/26/17 13:28 97 Room Air 02/26/17 10:58 98.5 72 18 138/55 (82) 98.5 02/25/17 23:44 2.0 Physical Exam PHYSICAL EXAM GENERAL: NAD, Alert HEENT: PERRL, OC/OP NECK: Supple, no JVD, no LN LUNGS: Clear HEART: S1S2, no gallop, no murmur ABD: Soft, NT, no organomegaly, no rebound EXT: No edema, no cyanosis FISH PEDDLER: Alert, oriented x 3, no focal neurologic deficit SKIN: No rash IV: ok Labs Lab Laboratory Tests Test 02/25/17 17:29 02/25/17 21:11 02/26/17 07:48 Glucose (Fingerstick) 209 mg/dL (70-99) 207 mg/dL (70-99) 301 mg/dL (70-99) Objective Assessment POD#1, s/p subxiphoid pericardial window. Doing well. Breathing much better. Pain from drain. No issues. 250 mls drainage from pericardial drain/24hr. Plan Plan of Care D/c drain D/c home F/u in clinic in 2 weeks YELENA JACKSON MD February 26, 2017 14:38
--- NOTE | 2017-02-28 16:23 | PDOC3 ---
Discharge Summary* Date of Admission: February 25, 2017 Date of Discharge: February 26, 2017 Admitting Diagnosis 1. recurrent symptomatic malignant pericardial effusion 2. stage IV lung cancer status post chemotherapy 3. CAD with previous stent placement 4. hypertension, benign essential 5. hypothyroidism 6. DM, type I Final Diagnosis 1. recurrent symptomatic malignant pericardial effusion 2. stage IV lung cancer status post chemotherapy 3. CAD with previous stent placement 4. hypertension, benign essential 5. hypothyroidism 6. DM,type I CONSULTS none Procedures 02/25/2017: 1. Subxiphoid pericardial window Brief Hospital Course Ms. Landeros is a 61 old with a history of recurrent malignant pleural effusions and subsequent diagnosis of stage IV lung cancer treated with chemotherapy and now with bony metastasis. She developed a malignant pericardial effusion Oct 2016 that was symptomatic and underwent pericardiocentesis. She has now developed a recurrent symptomatic pericardial effusion with dyspnea and pericardial window was advised. She was agreeable and underwent the procedure on February 25, 2017. Drain was placed to suction and left overnight. It was discontinued on February 26, 2017 with the patient being discharged later that day. Disposition/Orders: D/C to Home CONDITION AT DISCHARGE: Improved Diet: Cardiac Scheduled Amlodipine Besylate (Amlodipine Besylate), 10 MG PO DAILY, (Reported) Aspirin (Aspirin), 1 TAB PO DAILY, (Reported) Atorvastatin Calcium (Atorvastatin Calcium), 1 TAB PO DAILY, (Reported) Cholecalciferol (Vitamin D3) (Vitamin D), 1,000 UNIT PO DAILY, (Reported) Clonidine Hcl (Clonidine Hcl), 0.1 MG PO BID, (Reported) Clopidogrel Bisulfate (Clopidogrel), 1 TAB PO DAILY, (Reported) Folic Acid (Folic Acid), 1 MG PO DAILY, (Reported) Insulin Glargine,Hum.rec.anlog (Lantus Solostar), 10 UNIT SQ QHS, (Reported) Insulin Lispro (Humalog Kwikpen), 0 SQ TIDAC, (Reported) Levothyroxine Sodium (Levothyroxine Sodium), 1 TAB PO DAILY, (Reported) Metoprolol Tartrate (Metoprolol Tartrate), 1 TAB PO BID, (Reported) Sertraline Hcl (Sertraline Hcl), 100 MG PO 2tabs po daily, (Reported) Scheduled PRN Alprazolam (Alprazolam), 0.5 MG PO PRN Q6HRS PRN for ANXIETY / AGITATION, ( Reported) Azelastine HCl (Azelastine HCl), 205.5 MCG NS PRN PRN for NASAL CONGESTION, ( Reported) Hydrocodone Bit/Acetaminophen (Vicodin 5-300 Mg Tablet), 1 EACH PO Q6HRS PRN for PAIN, (Reported) Ondansetron (Zofran Odt), 8 MG PO BID PRN for NAUSEA/VOMITING, (Reported) Miscellaneous Medications Insulin Regular, Human (Novolin R), 0 IJ, (Reported) Discontinued Medications Albuterol Sulfate (Ventolin Hfa Inhaler), 2 PUFF IH PRN Q4-6HRS, (Reported) Alprazolam (Alprazolam), 0.5 MG PO PRN Q6HRS PRN for ANXIETY / AGITATION, ( Reported) Calcium Carbonate (Calcium), 800 MG PO DAILY, (Reported) Fexofenadine/Pseudoephedrine ([place]aney-D 24 Hour Tablet), 1 EACH PO DAILY, ( Reported) Furosemide (Lasix), 20 MG PO DAILY, (Reported) Ondansetron (Zofran Odt), 8 MG PO PRN Q8HRS, (Reported) Vitamin E Mixed (Vitamin E), 100 UNIT PO DAILY, (Reported) FOLLOW UP APPOINTMENT: Dr. Mcgee on 03/11/2017 oncology as scheduled PCP 7-10 days Time Spent Total time spent with patient [] minutes for coordination of care, counseling, and education. KWESI SOUZA SKULL SPLITTER February 28, 2017 16:23
--- NOTE | 2017-02-28 17:19 | PATHOLOGY ---
PATHOLOGY REPORT * * * * * * * * FINAL DIAGNOSIS: A. Segment of mesothelial-lined fibromembranous and adipose tissue, pericardial tissue #1: - Slight chronic inflammation negative for malignancy. B. Segment of mesothelial-lined fibromembranous and adipose tissue, pericardial tissue #2: - Slight chronic inflammation negative for malignancy. REPORT ELECTRONICALLY SIGNED BY: Yahir Falcon M.D. DATE/TIME: 02/28/2017 17:19 * * * * * * * * GROSS PATHOLOGY: A. The specimen is received in formalin labeled "Roselyn Landeros, #2 pericardium tissue". Received is a segment of pink-lynch soft tissue measuring 1.5 x 0.9 x 0.2 cm in greatest dimensions. The specimen is submitted entirely in cassette A1. B. The specimen is received in formalin labeled "Roselyn Landeros, #3 pericardium tissue". Received is a segment of pink-lynch soft tissue measuring 1.8 x 0.6 x 0.6 cm in greatest dimensions. The specimen is submitted entirely in cassette B1. (CAA; 02/26/2017) INITIAL CPT CODE(S): A; 75108 B; 16011 Professional services performed [place] [facility] [place] [address] Technical services performed by [facility] at [address] [place] [address], [facility] [address] [address]. SPECIMEN(S) RECEIVED: A.Pericardium tissue B.Pericardium tissue CLINICAL HISTORY: Pericardial effusion PATIENT: ROSELYN LANDEROS /AGE: 1 1955 (Age: 61) PATIENT #: [id number] ALT CASE #: SPECIMEN COLLECTION DATE: 02/25/2017 SPECIMEN RECEIVED DATE: 02/25/2017 [facility] - [address] [place] [address] - PHONE: [phone] * * * END OF REPORT * * *
--- NOTE | 2017-03-01 13:44 | PATHOLOGY ---
CYTOPATHOLOGY REPORT CLINICAL HISTORY: Pericardial effusion. See also [id number]. SPECIMEN(S) RECEIVED: A.Pericardial fluid FINAL DIAGNOSIS: Pericardial fluid, ThinPrep and cell block: - No malignant cells identified. - Rare mesothelial cells identified within a background of few inflammatory cells and red blood cells. (JPM:mgpineda; d/t: 03/01/17) PATHOLOGIST: Yahir Falcon M.D. REPORT ELECTRONICALLY SIGNED BY: Yahir Falcon M.D. DATE/TIME: 03/01/2017 13:26 GROSS PATHOLOGY: A. Pericardial fluid: The specimen is submitted unfixed, labeled "Roselyn Landeros". Received by the Cytology Department is 20 mL of cloudy orange fluid. One ThinPrep slide and a cell block were prepared. (clt 02.28.2017) WINDOWS SOFTWARE ENGINEER(S): DAVID Post(ASCP) INITIAL CPT CODE(S): A; 92552, 81570 Professional services performed by [facility] [place] [address] Technical services performed by [facility] at [address] [place] [address], [address] [address]. PATIENT: ROSELYN LANDEROS /AGE: 1 1955 (Age: 61) SEX: F PATIENT #: [id number] ALT CASE #: SPECIMEN COLLECTION DATE: 02/25/2017 SPECIMEN RECEIVED DATE: 02/28/[address] [facility] [address] [place] [address], [address] [place] [address] PHONE: [phone] DIRECTOR: Dakota Barnes M.D. * * * END OF REPORT * * *
== END 2017-02-26 15:08 | disposition home or self-care (01) | DRG 164 ==
LOC: OPSVCIP 07:14 → 2 NORTH 12:55
PROVIDERS: ADMIT Thoracic Surgery (Cardiothoracic Vascular Surgery); ATTEND Thoracic Surgery (Cardiothoracic Vascular Surgery)
PROC: 0W9D0ZZ Drainage of Pericardial Cavity, Open Approach (ICD-10-PCS; 2017-02-25)
PROC: B24CZZZ Ultrasonography of Pericardium (ICD-10-PCS; 2017-02-25)
PROC: 02BN0ZZ Excision of Pericardium, Open Approach (ICD-10-PCS; principal; 2017-02-25 09:30)
DX: C34.90 Malignant neoplasm of unspecified part of unspecified bronchus or lung (principal); I31.3 Pericardial effusion (noninflammatory); C79.51 Secondary malignant neoplasm of bone; E10.9 Type 1 diabetes mellitus without complications; Z79.4 Long term (current) use of insulin; Z92.21 Personal history of antineoplastic chemotherapy
CPT/HCPCS: 36415; 71010; 82947; 86850; 86900; 86901; 87071; 87075; 87205; 88112; 88305; 93308; J0330; J0690; J0780; J1100; J1815; J2250; J2270; J2405; J2704; J2710; J3010; J3490; J7120; J2001

== ENCOUNTER → 2017-03-11 | Outpatient (CLI) | payer OTHER ==
[2017-02-26 10:58] VITALS: BP 138/55
[~2017-03-11] MED LIST changes: +AMLO10TA2 PO; -HYDROmorphone 2 MG/ML VIAL IV PRN; -IV RINGERS,LACTATED 1000ML 1,000 ML IV SCH; -LIDOCAINE 1% 1 ML SYRINGE. ID PRN; -ONDANSETRON PF 4 MG/2 ML VIAL. IV PRN; -PROCHLORPERAZINE 10 MG/2 ML VIAL. IV PRN; -fentaNYL PF VIAL 100 MCG/2 ML VIAL IV PRN
--- NOTE | 2017-03-11 13:47 | RAD ---
Indication postop. Frontal and lateral views of the chest were obtained and are compared to an exam 02/25/2017. Heart size is slightly enlarged but unchanged. There is no congestive heart failure. There is volume loss in the left lung base compatible with atelectasis and pleural fluid similar to slightly improved. There is new volume loss at the right lung base compatible with pleural fluid. Right Port-A-Cath is noted. IMPRESSION: Stable mild cardiomegaly. No congestive heart failure. Volume loss at the left lung base compatible with pleural fluid and atelectasis appearing similar. Right pleural fluid which is new or larger than on the previous exam
== END | disposition home or self-care (01) ==
LOC: RAD 12:23
PROVIDERS: ATTEND Thoracic Surgery (Cardiothoracic Vascular Surgery)
DX: I31.9 Disease of pericardium, unspecified (principal)
CPT/HCPCS: 71020

== ENCOUNTER → 2017-04-01 | Outpatient (CLI) | payer OTHER ==
[~2017-04-01] MED LIST changes: +ASPI-630 PO; -ASPI81TA2 PO; -INSU100V10 IJ; +INSU100V11 IJ
[2017-04-01 17:00] LABS: BASO # 0.1 x10^3/uL (0.0-0.2); BASO % 1 % (0-3); EOS % 5 % (0-3); HEMATOCRIT 28.1 % (36.0-47.0); HEMOGLOBIN 9.6 g/dL (12.0-15.5); LYMPH # 0.9 x10^3/uL (1.0-4.8); LYMPH % 23 % (24-48); MEAN CORPUSCULAR HEMOGLOBIN 32 pg (25-35); MEAN CORPUSCULAR HGB CONC 34 g/dL (31-37); MEAN CORPUSCULAR VOLUME 93 fL (79-100); MONO % 12 % (0-9); NEUT % 59 % (31-73); PLATELET COUNT 203 x10^3/uL (140-400); RED BLOOD COUNT 3.04 x10^6/uL (3.50-5.40); RED CELL DISTRIBUTION WIDTH 15.2 % (11.5-14.5)
[2017-04-01 17:02] LABS: BILIRUBIN,URINE NEGATIVE (NEG); GLUCOSE,URINE NEGATIVE (NEG); NITRITE,URINE NEGATIVE (NEG); PH,URINE 6.5; PROTEIN,URINE 30 mg/dL (NEG-TRACE); UROBILINOGEN,URINE 0.2 mg/dL (0.2 mg/dL)
[2017-04-01 17:25] LABS: BACTERIA,URINE FEW /HPF (0-FEW); RBC,URINE 0 /HPF (0-2); SQUAMOUS EPITHELIAL CELL,UR OCC /LPF; WBC,URINE OCC /HPF (0-4)
[2017-04-01 17:39] LABS: ALBUMIN/GLOBULIN RATIO 0.8 (1.0-1.7); CALCIUM 8.7 mg/dL (8.5-10.1); CREATININE 1.4 mg/dL (0.6-1.0); GFR 38.1; POTASSIUM 3.6 mmol/L (3.5-5.1); TOTAL BILIRUBIN 0.2 mg/dL (0.2-1.0); TOTAL PROTEIN 6.6 g/dL (6.4-8.2); URIC ACID 5.3 mg/dL (2.6-6.0)
[2017-04-02 02:15] LABS: VITAMIN D25(OH)TOTAL 26.9 ng/mL (30.0-100.0)
[2017-04-02 06:15] LABS: UR PROTEIN RD 49.1 mg/dL (Not Estab.)
[2017-04-03 02:08] LABS: PTH INTACT 102 pg/mL (15-65)
== END | disposition home or self-care (01) ==
LOC: LAB 16:20
PROVIDERS: ATTEND Internal Medicine Nephrology
DX: I12.9 Hypertensive chronic kidney disease with stage 1 through stage 4 chronic kidney disease, or unspecified chronic kidney disease (principal); N18.3 Chronic kidney disease, stage 3 (moderate); E11.22 Type 2 diabetes mellitus with diabetic chronic kidney disease; E11.21 Type 2 diabetes mellitus with diabetic nephropathy; N17.9 Acute kidney failure, unspecified; Z68.31 Body mass index [BMI] 31.0-31.9, adult
CPT/HCPCS: 36415; 80053; 81001; 82306; 82310; 82570; 83735; 83970; 84100; 84156; 84550; 85027

== ENCOUNTER → 2017-06-22 | Outpatient (CLI) | payer OTHER ==
--- NOTE | 2017-06-22 12:16 | CARD ---
APPROVED REPORT EXAM: Two-dimensional and M-mode echocardiogram with Doppler and color Doppler. Other Information Quality : Average Rhythm : NSR INDICATION Pericardial Effusion 2D DIMENSIONS RVDd3.4 (2.9-3.5cm)Left Atrium(2D)4.1 (1.6-4.0cm) IVSd1.3 (0.7-1.1cm)Aortic Root(2D)2.8 (2.0-3.7cm) LVDd4.4 (3.9-5.9cm)LVOT Diameter2.1 (1.8-2.4cm) PWd1.3 (0.7-1.1cm)LVDs3.2 (2.5-4.0cm) FS (%) 27.9 %SV47.3 ml LVEF(%)54.3 (>50%) Aortic Valve AoV Peak Harvinder.175.5cm/sAoV VTI37.4cm AO Peak GR.12.3mmHgLVOT Peak Harvinder.81.2cm/s LVOT VTI 18.68cmAO Mean GR.6mmHg MESHA (VTI)1.67cm2 Mitral Valve MV E Lttvbbjs38.3cm/sMV DECEL [id number] MV A Ilpdoidt47.8cm/sMV QBD21uq E/A Ratio0.6MV A Vsoxkklv54kz MVA (PHT)2.22cm2 TDI E/Lateral E'6.5E/Medial E'8.8 Pulmonary Valve PV Peak Lcbusnxl469.2cm/sPV Peak Grad.4mmHg RVOT VTI21.7cm Tricuspid Valve TR P. Jexfdzcz573vo/sRAP FNIXKFGJ8tgNt TR Peak Gr.17shNhHYRO02vgVt Pulmonary Vein S1 Wqkvbwna86.4cm/sD2 Kbqaooqc38.1cm/s LEFT VENTRICLE The left ventricle is normal size. There is borderline to mild concentric left ventricular hypertroph y. Left ventricle systolic function is normal. The Ejection Fraction is 50-55%. There is normal LV se gmental wall motion. Tissue Doppler imaging reveals mild left ventricular diastolic dysfunction. Ther e is no ventricular septal defect visualized. RIGHT VENTRICLE The right ventricle is normal size. The right ventricular systolic function is normal. ATRIA The left atrium size is normal. The right atrium size is normal. The interatrial septum is intact wit h no evidence for an atrial septal defect or patent foramen ovale as noted on 2-D or Doppler imaging. AORTIC VALVE The aortic valve is mildly calcified. The aortic valve is trileaflet. Doppler and Color Flow revealed no significant aortic regurgitation. There is no significant aortic valvular stenosis. MITRAL VALVE Mitral annular calcification is mild to moderate. The mitral valve leaflets are thickened. There is n o mitral valve stenosis. Doppler and Color Flow revealed mild mitral regurgitation. TRICUSPID VALVE The tricuspid valve is normal in structure and function. Doppler and Color Flow revealed trace to mil d tricuspid regurgitation. The PA pressure was estimated at 32 mmHg. There is no tricuspid valve sten osis. PULMONIC VALVE The pulmonic valve is not well visualized. Doppler and Color Flow revealed no pulmonic valvular regur gitation. There is no pulmonic valvular stenosis. GREAT VESSELS The aortic root is normal in size. The ascending aorta is normal in size. Normal pulmonary venous natalia w (Doppler). The IVC is normal in size and collapses >50% with inspiration. PERICARDIAL EFFUSION There is a small lateral localized pericardial effusion without any hemodynamic effects. Critical Notification Critical Value: No <Conclusion> Left ventricle systolic function is normal. The Ejection Fraction is 50-55%. There is normal LV segmental wall motion. There is a small lateral localized pericardial effusion without any hemodynamic effects.
== END | disposition home or self-care (01) ==
LOC: ECHO 08:47
PROVIDERS: ATTEND Internal Medicine Cardiovascular Disease
DX: I31.3 Pericardial effusion (noninflammatory) (principal); I34.0 Nonrheumatic mitral (valve) insufficiency
CPT/HCPCS: 93306

== ENCOUNTER 2017-10-13 17:33 | Inpatient (IN) | payer OTHER ==
[2017-10-13 21:23] LABS: ADD MAN DIFF? NO
[2017-10-13 21:26] LABS: BASO # 0.1 x10^3/uL (0.0-0.2); BASO % 1 % (0-3); EOS # 0.2 x10^3/uL (0.0-0.7); EOS % 4 % (0-3); HEMATOCRIT 31.4 % (36.0-47.0); HEMOGLOBIN 10.6 g/dL (12.0-15.5); LYMPH # 0.5 x10^3/uL (1.0-4.8); LYMPH % 9 % (24-48); MEAN CORPUSCULAR HEMOGLOBIN 32 pg (25-35); MEAN CORPUSCULAR HGB CONC 34 g/dL (31-37); MEAN CORPUSCULAR VOLUME 95 fL (79-100); MONO # 0.6 x10^3/uL (0.0-1.1); MONO % 11 % (0-9); NEUT # 4.2 x10^3uL (1.8-7.7); NEUT % 75 % (31-73); PLATELET COUNT 179 x10^3/uL (140-400); RED BLOOD COUNT 3.31 x10^6/uL (3.50-5.40); RED CELL DISTRIBUTION WIDTH 14.5 % (11.5-14.5); WHITE BLOOD COUNT 5.5 x10^3/uL (4.0-11.0)
[2017-10-13 21:35] LABS: INR 1.1 (0.8-1.1); PARTIAL THROMBOPLASTIN TIME 29 SEC (24-38); PROTHROMBIN TIME PATIENT 13.6 SEC (11.7-14.0)
[2017-10-13 21:40] LABS: ANION GAP 11 (6-14); BLOOD UREA NITROGEN 34 mg/dL (7-20); BUN/CREATININE RATIO 23 (6-20); CALCIUM 8.7 mg/dL (8.5-10.1); CARBON DIOXIDE 26 mmol/L (21-32); CHLORIDE 104 mmol/L (98-107); CREATININE 1.5 mg/dL (0.6-1.0); GFR 35.1; GLUCOSE 202 mg/dL (70-99); POTASSIUM 4.3 mmol/L (3.5-5.1); SODIUM 141 mmol/L (136-145)
[2017-10-13 21:45] LABS: ALK PHOS 95 U/L (46-116); ALT (SGPT) 12 U/L (14-59); AST (SGOT) 10 U/L (15-37); TOTAL BILIRUBIN 0.3 mg/dL (0.2-1.0); TOTAL PROTEIN 6.1 g/dL (6.4-8.2)
[2017-10-13 21:48] LABS: TROPONINI < 0.017 ng/mL (0.000-0.055)
[2017-10-13 21:50] LABS: NT-PRO BNP 1116 pg/mL (0-124)
[2017-10-13] MEDS ORDERED: MORPHINE SULFATE 2 MG/ML DISP.SYRIN. IV (22:15)
[2017-10-13] MEDS ORDERED: ONDANSETRON PF 4 MG/2 ML VIAL. IV (22:15)
[2017-10-13] MEDS: ACETAMINOPHEN 325 MG TABLET. PO (23:33)
[2017-10-14] MEDS: ACETAMINOPHEN 325 MG TABLET. PO ×2 (04:29→13:04)
[2017-10-14] MEDS ORDERED: DEXTROSE 50% 25 GM / 50ML DISP.SYRIN. IV (08:15)
[2017-10-14 08:20] LABS: POC GLUCOSE 431 mg/dL (70-99)
[2017-10-14] MEDS: INSULIN ASPART 300 UNITS/3 ML INSULN.PEN SQ ×6 (09:14→17:21)
[2017-10-14 09:29] LABS: BASO % 1 % (0-3); EOS # 0.1 x10^3/uL (0.0-0.7); EOS % 3 % (0-3); HEMATOCRIT 31.5 % (36.0-47.0); HEMOGLOBIN 10.5 g/dL (12.0-15.5); LYMPH # 0.3 x10^3/uL (1.0-4.8); LYMPH % 7 % (24-48); MEAN CORPUSCULAR HEMOGLOBIN 32 pg (25-35); MEAN CORPUSCULAR HGB CONC 33 g/dL (31-37); MEAN CORPUSCULAR VOLUME 96 fL (79-100); MONO # 0.4 x10^3/uL (0.0-1.1); MONO % 8 % (0-9); NEUT # 3.9 x10^3uL (1.8-7.7); NEUT % 81 % (31-73); PLATELET COUNT 158 x10^3/uL (140-400); RED BLOOD COUNT 3.27 x10^6/uL (3.50-5.40); RED CELL DISTRIBUTION WIDTH 14.2 % (11.5-14.5); WHITE BLOOD COUNT 4.8 x10^3/uL (4.0-11.0)
[2017-10-14 09:32] LABS: ADD MAN DIFF? YES
[2017-10-14 09:55] LABS: ANION GAP 17 (6-14); BLOOD UREA NITROGEN 34 mg/dL (7-20); CALCIUM 8.4 mg/dL (8.5-10.1); CARBON DIOXIDE 20 mmol/L (21-32); CHLORIDE 100 mmol/L (98-107); CREATININE 1.6 mg/dL (0.6-1.0); GFR 32.6; POTASSIUM 4.7 mmol/L (3.5-5.1); SODIUM 137 mmol/L (136-145)
[2017-10-14 10:02] LABS: GLUCOSE 517 mg/dL (70-99)
[2017-10-14 10:46] LABS: POC GLUCOSE 342 mg/dL (70-99)
[2017-10-14 11:16] LABS: % BASOS 1 % (0-3); % EOS 4 % (0-5); % LYMPHS 4 % (24-48); % MONOS 7 % (0-10); % SEGS 84 % (35-66)
[2017-10-14 11:17] LABS: PLT ESTIMATE ADEQUATE (ADEQUATE)
[2017-10-14] MEDS ORDERED: INSULIN ASPART 300 UNITS/3 ML INSULN.PEN SQ ×2 (11:30→12:00)
[2017-10-14] MEDS ORDERED: ALPRAZolam 0.5 MG TABLET PO (12:00)
[2017-10-14] MEDS ORDERED: HYDROcodone/APAP 5/325MG 1 TAB TABLET PO (12:00)
[2017-10-14] MEDS ORDERED: ONDANSETRON ODT 4 MG TAB.RAPDIS. PO (12:00)
[2017-10-14] MEDS: ATORVASTATIN CALCIUM 40 MG TABLET. PO (12:30)
[2017-10-14] MEDS: ASPIRIN CHEWABLE 81 MG TABLET. PO (13:05)
[2017-10-14] MEDS: SERTRALINE 50 MG TABLET. PO (13:05)
[2017-10-14] MEDS: METOPROLOL TART IMMED RELEASE 50 MG TABLET. PO ×2 (13:06→21:00)
[2017-10-14] MEDS: FOLIC ACID 1 MG TABLET. PO (13:07)
[2017-10-14] MEDS: LEVOTHYROXINE 175 MCG TABLET PO (13:07)
[2017-10-14] MEDS: CLOPIDOGREL BISULFATE 75 MG TABLET PO (13:07)
[2017-10-14] MEDS: cloNIDine HCL 0.1 MG TABLET PO ×2 (13:07→21:00)
[2017-10-14] MEDS: CHOLECALCIFEROL (VITAMIN D3) 1,000 UNIT TABLET PO (13:08)
[2017-10-14 16:20] LABS: POC GLUCOSE 341 mg/dL (70-99)
[2017-10-14] MEDS ORDERED: AZELASTINE NASAL SPRAY 30ML BOTTLE. NS (21:00)
[2017-10-14] MEDS: INSULIN DETEMIR 300 UNITS/3 ML INSULN.PEN. SQ (21:06)
[2017-10-15 07:38] LABS: POC GLUCOSE 101 mg/dL (70-99)
[2017-10-15] MEDS: INSULIN ASPART 300 UNITS/3 ML INSULN.PEN SQ ×6 (08:00→17:18)
[2017-10-15] MEDS: ASPIRIN CHEWABLE 81 MG TABLET. PO (08:23)
[2017-10-15] MEDS: CLOPIDOGREL BISULFATE 75 MG TABLET PO (08:23)
[2017-10-15] MEDS: CHOLECALCIFEROL (VITAMIN D3) 1,000 UNIT TABLET PO (08:23)
[2017-10-15] MEDS: LEVOTHYROXINE 175 MCG TABLET PO (08:23)
[2017-10-15] MEDS: FOLIC ACID 1 MG TABLET. PO (08:23)
[2017-10-15] MEDS: METOPROLOL TART IMMED RELEASE 50 MG TABLET. PO ×2 (08:24→19:37)
[2017-10-15] MEDS: cloNIDine HCL 0.1 MG TABLET PO ×2 (08:24→19:36)
[2017-10-15] MEDS: ATORVASTATIN CALCIUM 40 MG TABLET. PO ×2 (08:28→10:39)
[2017-10-15] MEDS: SERTRALINE 50 MG TABLET. PO (08:40)
[2017-10-15] MEDS: ACETAMINOPHEN 325 MG TABLET. PO (08:40)
[2017-10-15 11:57] LABS: POC GLUCOSE 123 mg/dL (70-99)
[2017-10-15 14:50] LABS: ANION GAP 10 (6-14); BLOOD UREA NITROGEN 34 mg/dL (7-20); CALCIUM 8.5 mg/dL (8.5-10.1); CARBON DIOXIDE 25 mmol/L (21-32); CHLORIDE 106 mmol/L (98-107); CREATININE 1.6 mg/dL (0.6-1.0); GFR 32.6; GLUCOSE 119 mg/dL (70-99); MAGNESIUM 1.5 mg/dL (1.8-2.4); POTASSIUM 3.9 mmol/L (3.5-5.1); SODIUM 141 mmol/L (136-145)
[2017-10-15 16:37] LABS: POC GLUCOSE 107 mg/dL (70-99)
[2017-10-15] MEDS: MAGNESIUM SULFATE 2GM 50 ML IV (19:36)
[2017-10-15 21:40] LABS: POC GLUCOSE 63 mg/dL (70-99)
[2017-10-15] MEDS: INSULIN DETEMIR 300 UNITS/3 ML INSULN.PEN. SQ (21:41)
[2017-10-15 22:28] LABS: POC GLUCOSE 105 mg/dL (70-99)
[2017-10-16] MEDS: ACETAMINOPHEN 325 MG TABLET. PO ×3 (03:01→22:23)
[2017-10-16 04:01] LABS: ADD MAN DIFF? NO
[2017-10-16 04:05] LABS: BASO # 0.1 x10^3/uL (0.0-0.2); BASO % 1 % (0-3); EOS # 0.3 x10^3/uL (0.0-0.7); EOS % 7 % (0-3); HEMATOCRIT 30.6 % (36.0-47.0); HEMOGLOBIN 10.3 g/dL (12.0-15.5); LYMPH # 0.6 x10^3/uL (1.0-4.8); LYMPH % 15 % (24-48); MEAN CORPUSCULAR HEMOGLOBIN 32 pg (25-35); MEAN CORPUSCULAR HGB CONC 34 g/dL (31-37); MEAN CORPUSCULAR VOLUME 95 fL (79-100); MONO # 0.5 x10^3/uL (0.0-1.1); MONO % 12 % (0-9); NEUT # 2.5 x10^3uL (1.8-7.7); NEUT % 65 % (31-73); PLATELET COUNT 180 x10^3/uL (140-400); RED BLOOD COUNT 3.21 x10^6/uL (3.50-5.40); RED CELL DISTRIBUTION WIDTH 14.4 % (11.5-14.5); WHITE BLOOD COUNT 3.9 x10^3/uL (4.0-11.0)
[2017-10-16 04:45] LABS: ALBUMIN 2.9 g/dL (3.4-5.0); ALBUMIN/GLOBULIN RATIO 0.9 (1.0-1.7); ALK PHOS 77 U/L (46-116); ALT (SGPT) 14 U/L (14-59); ANION GAP 10 (6-14); AST (SGOT) 14 U/L (15-37); BLOOD UREA NITROGEN 35 mg/dL (7-20); BUN/CREATININE RATIO 23 (6-20); CALCIUM 8.5 mg/dL (8.5-10.1); CARBON DIOXIDE 25 mmol/L (21-32); CHLORIDE 106 mmol/L (98-107); CREATININE 1.5 mg/dL (0.6-1.0); GFR 35.1; GLUCOSE 67 mg/dL (70-99); MAGNESIUM 1.9 mg/dL (1.8-2.4); POTASSIUM 3.7 mmol/L (3.5-5.1); SODIUM 141 mmol/L (136-145); TOTAL BILIRUBIN 0.3 mg/dL (0.2-1.0); TOTAL PROTEIN 6.2 g/dL (6.4-8.2)
[2017-10-16] MEDS: INSULIN ASPART 300 UNITS/3 ML INSULN.PEN SQ ×6 (08:00→17:15)
[2017-10-16 08:06] LABS: POC GLUCOSE 112 mg/dL (70-99)
[2017-10-16] MEDS: LEVOTHYROXINE 175 MCG TABLET PO (08:22)
[2017-10-16] MEDS: cloNIDine HCL 0.1 MG TABLET PO ×2 (09:53→22:23)
[2017-10-16] MEDS: CHOLECALCIFEROL (VITAMIN D3) 1,000 UNIT TABLET PO (09:53)
[2017-10-16] MEDS: ASPIRIN CHEWABLE 81 MG TABLET. PO (09:53)
[2017-10-16] MEDS: CLOPIDOGREL BISULFATE 75 MG TABLET PO (09:54)
[2017-10-16] MEDS: METOPROLOL TART IMMED RELEASE 50 MG TABLET. PO ×2 (09:54→22:23)
[2017-10-16] MEDS: SERTRALINE 50 MG TABLET. PO (09:54)
[2017-10-16] MEDS: FOLIC ACID 1 MG TABLET. PO (09:54)
[2017-10-16] MEDS ORDERED: INSULIN ASPART 300 UNITS/3 ML INSULN.PEN SQ (11:00)
[2017-10-16 12:06] LABS: POC GLUCOSE 188 mg/dL (70-99)
[2017-10-16 17:15] LABS: POC GLUCOSE 101 mg/dL (70-99)
[2017-10-16 21:54] LABS: POC GLUCOSE 108 mg/dL (70-99)
[2017-10-16] MEDS: INSULIN DETEMIR 300 UNITS/3 ML INSULN.PEN. SQ (22:32)
[2017-10-17 07:58] LABS: POC GLUCOSE 379 mg/dL (70-99)
[2017-10-17] MEDS: FOLIC ACID 1 MG TABLET. PO (09:25)
[2017-10-17] MEDS: LEVOTHYROXINE 175 MCG TABLET PO (09:25)
[2017-10-17] MEDS: METOPROLOL TART IMMED RELEASE 50 MG TABLET. PO (09:26)
[2017-10-17] MEDS: ATORVASTATIN CALCIUM 40 MG TABLET. PO (09:26)
[2017-10-17] MEDS: cloNIDine HCL 0.1 MG TABLET PO (09:26)
[2017-10-17] MEDS: ASPIRIN CHEWABLE 81 MG TABLET. PO (09:26)
[2017-10-17] MEDS: SERTRALINE 50 MG TABLET. PO (09:27)
[2017-10-17] MEDS: CLOPIDOGREL BISULFATE 75 MG TABLET PO (09:31)
[2017-10-17] MEDS: CHOLECALCIFEROL (VITAMIN D3) 1,000 UNIT TABLET PO (09:31)
[2017-10-17] MEDS: INSULIN ASPART 300 UNITS/3 ML INSULN.PEN SQ ×4 (09:33→12:02)
[2017-10-17 11:30] LABS: POC GLUCOSE 389 mg/dL (70-99)
[2017-10-17] MEDS: HEPARIN PF 500 UNIT/5 ML DISP.SYRIN. IV (12:43)
== END 2017-10-17 13:00 | disposition home health service (06) | DRG 89 ==
LOC: 5 SOUTH 10-15 20:21 → ER 17:33 → ED HOLD 20:08 → 5 SOUTH 22:39
DX: S06.0X9A Concussion with loss of consciousness of unspecified duration, initial encounter (principal); C34.90 Malignant neoplasm of unspecified part of unspecified bronchus or lung; J91.0 Malignant pleural effusion; E11.42 Type 2 diabetes mellitus with diabetic polyneuropathy; C79.51 Secondary malignant neoplasm of bone; I31.3 Pericardial effusion (noninflammatory); F41.9 Anxiety disorder, unspecified; E03.9 Hypothyroidism, unspecified; E07.9 Disorder of thyroid, unspecified; E66.9 Obesity, unspecified; G89.29 Other chronic pain; I10 Essential (primary) hypertension; I25.10 Atherosclerotic heart disease of native coronary artery without angina pectoris; M54.5 Low back pain; M17.0 Bilateral primary osteoarthritis of knee; M70.62 Trochanteric bursitis, left hip; M51.36 Other intervertebral disc degeneration, lumbar region; M70.61 Trochanteric bursitis, right hip; R29.6 Repeated falls; W01.0XXA Fall on same level from slipping, tripping and stumbling without subsequent striking against object, initial encounter; Z80.1 Family history of malignant neoplasm of trachea, bronchus and lung; Z80.52 Family history of malignant neoplasm of bladder; Z91.81 History of falling; Z85.118 Personal history of other malignant neoplasm of bronchus and lung; Z87.891 Personal history of nicotine dependence; Z92.3 Personal history of irradiation; Z95.5 Presence of coronary angioplasty implant and graft; Y93.89 Activity, other specified; Y92.098 Other place in other non-institutional residence as the place of occurrence of the external cause; Y99.8 Other external cause status; Z68.31 Body mass index [BMI] 31.0-31.9, adult
CPT/HCPCS: 36415; 70450; 72125; 80048; 80053; 82962; 83735; 83880; 84484; 85007; 85025; 85610; 85730; 93005; 96372; 96374; 97116-GP; 97161-GP; 97166-GO; 99285; 99285-25; J1815; J7060

== ENCOUNTER → 2017-11-11 | Outpatient (CLI) | payer OTHER | END | disposition home or self-care (01) | LOC: RAD 09:51 | DX: M25.471 Effusion, right ankle (principal); I70.298 Other atherosclerosis of native arteries of extremities, other extremity; Z91.81 History of falling | CPT/HCPCS: 73564; 73610 ==

== ENCOUNTER → 2017-11-11 | Outpatient (CLI) | payer OTHER ==
[2017-11-11] MEDS: GADOBUTROL 10 MMOL/10 ML VIAL IV ×2 (10:45)
== END | disposition home or self-care (01) ==
LOC: MRI 09:55
DX: I73.9 Peripheral vascular disease, unspecified (principal); I63.8 Other cerebral infarction; R60.0 Localized edema
CPT/HCPCS: 70553; A9585

== ENCOUNTER → 2018-01-04 | Outpatient (CLI) | payer OTHER ==
[2018-01-04] MEDS: GADOBUTROL 10 MMOL/10 ML VIAL IV (09:16)
== END | disposition home or self-care (01) ==
LOC: KCIC MRI 08:23
DX: C34.90 Malignant neoplasm of unspecified part of unspecified bronchus or lung (principal); C79.31 Secondary malignant neoplasm of brain; I10 Essential (primary) hypertension; E11.9 Type 2 diabetes mellitus without complications; Z79.01 Long term (current) use of anticoagulants
CPT/HCPCS: 70553; A9585

== ENCOUNTER 2018-01-17 20:10 | Inpatient (IN) | payer OTHER ==
[2018-01-17] MEDS: ENOXAPARIN 40 MG/0.4 ML SYRINGE. SQ (21:00)
[2018-01-17] MEDS ORDERED: ONDANSETRON ODT 4 MG TAB.RAPDIS. PO (21:45)
[2018-01-17] MEDS ORDERED: HYDROcodone/APAP 5/325MG 1 TAB TABLET PO (21:45)
[2018-01-17] MEDS: DEXAMETHASONE 1 MG TABLET PO (22:00)
[2018-01-17] MEDS: cloNIDine HCL 0.1 MG TABLET PO (22:00)
[2018-01-17] MEDS: METOPROLOL TART IMMED RELEASE 50 MG TABLET. PO (22:00)
[2018-01-17 23:14] LABS: ADD MAN DIFF? YES; BASO % 0 % (0-3); EOS % 1 % (0-3); HEMATOCRIT 23.5 % (36.0-47.0); HEMOGLOBIN 8.3 g/dL (12.0-15.5); LYMPH # 0.4 x10^3/uL (1.0-4.8); LYMPH % 7 % (24-48); MEAN CORPUSCULAR HEMOGLOBIN 33 pg (25-35); MEAN CORPUSCULAR HGB CONC 35 g/dL (31-37); MEAN CORPUSCULAR VOLUME 94 fL (79-100); MONO # 0.4 x10^3/uL (0.0-1.1); MONO % 7 % (0-9); NEUT # 5.4 x10^3uL (1.8-7.7); NEUT % 86 % (31-73); PLATELET COUNT 180 x10^3/uL (140-400); RED BLOOD COUNT 2.49 x10^6/uL (3.50-5.40); RED CELL DISTRIBUTION WIDTH 15.4 % (11.5-14.5); WHITE BLOOD COUNT 6.2 x10^3/uL (4.0-11.0)
[2018-01-17 23:24] LABS: ALBUMIN 2.1 g/dL (3.4-5.0); ALBUMIN/GLOBULIN RATIO 0.6 (1.0-1.7); ALK PHOS 91 U/L (46-116); ALT (SGPT) 18 U/L (14-59); ANION GAP 9 (6-14); AST (SGOT) 6 U/L (15-37); BLOOD UREA NITROGEN 57 mg/dL (7-20); BUN/CREATININE RATIO 26 (6-20); CALCIUM 8.8 mg/dL (8.5-10.1); CARBON DIOXIDE 27 mmol/L (21-32); CHLORIDE 103 mmol/L (98-107); CREATININE 2.2 mg/dL (0.6-1.0); GFR 22.5; GLUCOSE 103 mg/dL (70-99); POTASSIUM 3.9 mmol/L (3.5-5.1); SODIUM 139 mmol/L (136-145); TOTAL BILIRUBIN 0.2 mg/dL (0.2-1.0); TOTAL PROTEIN 5.8 g/dL (6.4-8.2)
[2018-01-17 23:33] LABS: % BANDS 2 % (0-9); % LYMPHS 2 % (24-48); % MONOS 5 % (0-10); % MYELOS 2 % (0-0); % SEGS 89 % (35-66)
[2018-01-17 23:35] LABS: PLT ESTIMATE ADEQUATE (ADEQUATE); POLYCHROMASIA SLIGHT; TOXIC GRANULATION SLIGHT
[2018-01-18 03:26] LABS: BACTERIA,URINE MANY /HPF (0-FEW); BILIRUBIN,URINE NEGATIVE (NEG); CLARITY,URINE CLEAR; COLOR,URINE YELLOW; GLUCOSE,URINE NEGATIVE (NEG); NITRITE,URINE NEGATIVE (NEG); PROTEIN,URINE NEGATIVE (NEG-TRACE); SQUAMOUS EPITHELIAL CELL,UR OCC /LPF; UROBILINOGEN,URINE 0.2 mg/dL (0.2 mg/dL); WBC,URINE 20-40 /HPF (0-4)
[2018-01-18] MEDS: DEXAMETHASONE 2 MG PO ×4 (03:47→22:15)
[2018-01-18] MEDS ORDERED: DEXAMETHASONE 1 MG TABLET PO (04:00)
[2018-01-18 08:33] LABS: POC GLUCOSE 129 mg/dL (70-99)
[2018-01-18] MEDS: CHOLECALCIFEROL (VITAMIN D3) 1,000 UNIT TABLET PO (09:22)
[2018-01-18] MEDS: ASPIRIN CHEWABLE 81 MG TABLET. PO (09:22)
[2018-01-18] MEDS: SERTRALINE 50 MG TABLET. PO (09:25)
[2018-01-18] MEDS: cloNIDine HCL 0.1 MG TABLET PO ×2 (09:26→20:31)
[2018-01-18] MEDS: METOPROLOL TART IMMED RELEASE 50 MG TABLET. PO ×2 (09:28→20:28)
[2018-01-18] MEDS: amLODIPine BESYLATE 10 MG TABLET PO (09:30)
[2018-01-18] MEDS: CLOPIDOGREL BISULFATE 75 MG TABLET PO (09:31)
[2018-01-18] MEDS: buPROPion XL 150 MG TAB.ER.24H. PO (09:31)
[2018-01-18] MEDS: LEVOTHYROXINE 175 MCG TABLET PO (09:32)
[2018-01-18] MEDS: ENOXAPARIN 40 MG/0.4 ML SYRINGE. SQ (09:37)
[2018-01-18] MEDS: IV NORMAL SALINE 1000ML BAG 1,000 ML IV ×2 (09:55→22:15)
[2018-01-18] MEDS: FOLIC ACID 1 MG TABLET. PO (09:56)
[2018-01-18 11:55] LABS: POC GLUCOSE 173 mg/dL (70-99)
[2018-01-18] MEDS: cefTRIAXone IV Push 1 GM VIAL. IVP (13:05)
[2018-01-18 16:57] LABS: POC GLUCOSE 129 mg/dL (70-99)
[2018-01-18] MEDS: ACETAMINOPHEN 325 MG TABLET. PO (20:27)
[2018-01-18] MEDS: INSULIN DETEMIR 300 UNITS/3 ML INSULN.PEN. SQ (20:30)
[2018-01-18 20:34] LABS: POC GLUCOSE 163 mg/dL (70-99)
[2018-01-18] MEDS ORDERED: LACTOBACILLUS RHAMNOSUS GG 1 CAPSULE. PO (21:00)
[2018-01-19] MEDS: DEXAMETHASONE 2 MG PO ×2 (04:09→10:00)
[2018-01-19 04:49] LABS: ADD MAN DIFF? NO
[2018-01-19 05:00] LABS: BASO # 0.1 x10^3/uL (0.0-0.2); BASO % 1 % (0-3); EOS % 0 % (0-3); HEMATOCRIT 26.6 % (36.0-47.0); HEMOGLOBIN 9.4 g/dL (12.0-15.5); LYMPH # 0.4 x10^3/uL (1.0-4.8); LYMPH % 6 % (24-48); MEAN CORPUSCULAR HEMOGLOBIN 34 pg (25-35); MEAN CORPUSCULAR HGB CONC 35 g/dL (31-37); MEAN CORPUSCULAR VOLUME 95 fL (79-100); MONO # 0.4 x10^3/uL (0.0-1.1); MONO % 6 % (0-9); NEUT # 6.2 x10^3uL (1.8-7.7); NEUT % 87 % (31-73); PLATELET COUNT 222 x10^3/uL (140-400); RED BLOOD COUNT 2.79 x10^6/uL (3.50-5.40); RED CELL DISTRIBUTION WIDTH 15.9 % (11.5-14.5); WHITE BLOOD COUNT 7.1 x10^3/uL (4.0-11.0)
[2018-01-19 05:15] LABS: ANION GAP 10 (6-14); BLOOD UREA NITROGEN 49 mg/dL (7-20); CALCIUM 8.6 mg/dL (8.5-10.1); CARBON DIOXIDE 25 mmol/L (21-32); CHLORIDE 107 mmol/L (98-107); CREATININE 2.2 mg/dL (0.6-1.0); GFR 22.5; GLUCOSE 60 mg/dL (70-99); MAGNESIUM 1.7 mg/dL (1.8-2.4); POTASSIUM 4.6 mmol/L (3.5-5.1); SODIUM 142 mmol/L (136-145)
[2018-01-19] MEDS ORDERED: INSULIN ASPART 300 UNITS/3 ML INSULN.PEN SQ ×2 (07:30)
[2018-01-19] MEDS: INSULIN ASPART 300 UNITS/3 ML INSULN.PEN SQ ×4 (07:30→12:04)
[2018-01-19] MEDS: LEVOTHYROXINE 175 MCG TABLET PO (07:43)
[2018-01-19 08:03] LABS: POC GLUCOSE 64 mg/dL (70-99)
[2018-01-19 08:28] LABS: POC GLUCOSE 66 mg/dL (70-99)
[2018-01-19] MEDS: ASPIRIN CHEWABLE 81 MG TABLET. PO (09:12)
[2018-01-19] MEDS: cloNIDine HCL 0.1 MG TABLET PO (09:12)
[2018-01-19] MEDS: FOLIC ACID 1 MG TABLET. PO (09:13)
[2018-01-19] MEDS: METOPROLOL TART IMMED RELEASE 50 MG TABLET. PO (09:14)
[2018-01-19] MEDS: amLODIPine BESYLATE 10 MG TABLET PO (09:15)
[2018-01-19] MEDS: CLOPIDOGREL BISULFATE 75 MG TABLET PO (09:16)
[2018-01-19] MEDS: buPROPion XL 150 MG TAB.ER.24H. PO (09:17)
[2018-01-19] MEDS: CHOLECALCIFEROL (VITAMIN D3) 1,000 UNIT TABLET PO (09:17)
[2018-01-19] MEDS: SERTRALINE 50 MG TABLET. PO (09:19)
[2018-01-19 12:04] LABS: POC GLUCOSE 164 mg/dL (70-99)
[2018-01-19 12:04] LABS: POC GLUCOSE 316 mg/dL (70-99)
[2018-01-19] MEDS: cefTRIAXone IV Push 1 GM VIAL. IVP (13:42)
[2018-01-19] MEDS: HEPARIN PF 500 UNIT/5 ML DISP.SYRIN. IV (14:00)
== END 2018-01-19 14:30 | disposition home or self-care (01) | DRG 683 ==
LOC: 5 NORTH 20:10
DX: N17.9 Acute kidney failure, unspecified (principal); G72.0 Drug-induced myopathy; E11.22 Type 2 diabetes mellitus with diabetic chronic kidney disease; E24.2 Drug-induced Cushing's syndrome; N39.0 Urinary tract infection, site not specified; E03.9 Hypothyroidism, unspecified; E86.0 Dehydration; F32.9 Major depressive disorder, single episode, unspecified; F41.9 Anxiety disorder, unspecified; I12.9 Hypertensive chronic kidney disease with stage 1 through stage 4 chronic kidney disease, or unspecified chronic kidney disease; I25.10 Atherosclerotic heart disease of native coronary artery without angina pectoris; N18.3 Chronic kidney disease, stage 3 (moderate); T38.0X5A Adverse effect of glucocorticoids and synthetic analogues, initial encounter; Z79.02 Long term (current) use of antithrombotics/antiplatelets; Z80.52 Family history of malignant neoplasm of bladder; Z85.118 Personal history of other malignant neoplasm of bronchus and lung; Z86.61 Personal history of infections of the central nervous system; Z87.891 Personal history of nicotine dependence; Z92.21 Personal history of antineoplastic chemotherapy; Z92.3 Personal history of irradiation; Z95.5 Presence of coronary angioplasty implant and graft; Z51.5 Encounter for palliative care
CPT/HCPCS: 36415; 71046; 76770; 80048; 80053; 81001; 82962; 83735; 85007; 85025; 87086; 87186; 97161-GP; 97166-GO; J0696; J1650; J1815; J7030

== ENCOUNTER → 2019-05-04 | Outpatient (CLI) | payer OTHER ==
[2018-01-19 11:32] VITALS: BP 132/57
[~2019-05-04] MED LIST changes: -AMLO10TA2 PO; +AMLO10TA8 PO; -AMLO2.5T PO; +AMLO2.5T5 PO; +BUPR150T15 PO; +HYDR-2759 PO; -HYDR1TAB12 PO; +HYDR1TAB13 PO; +INSU100I17 SQ; +INSU100I27 SQ; +LEXAPRO20 MG PO; +LISI-130 PO; -LISI40TA PO; -METO50TA2 PO; +METO50TA6 PO; +NIVO240V IV
--- NOTE | 2019-05-04 09:06 | CARD ---
MR#: [id number] Date of Study: 05/04/2019 Ordering Physician: NOVA WRIGHT, Referring Physician: NOVA WRIGHT, Tech: Jaylyn Maharaj [facility] APPROVED REPORT EXAM: Two-dimensional and M-mode echocardiogram with Doppler and color Doppler. Other Information Quality : AverageHR: 65bpm Rhythm : NSR INDICATION CAD 2D DIMENSIONS RVDd3.7 (2.9-3.5cm)Left Atrium(2D)4.0 (1.6-4.0cm) IVSd1.0 (0.7-1.1cm)Aortic Root(2D)3.1 (2.0-3.7cm) LVDd4.6 (3.9-5.9cm)LVOT Diameter2.1 (1.8-2.4cm) PWd1.1 (0.7-1.1cm)LVDs3.2 (2.5-4.0cm) FS (%) 29.7 %SV54.0 ml LVEF(%)56.9 (>50%) M-Mode DIMENSIONS Left Atrium(MM)3.94 (2.5-4.0cm)Aortic Root2.84 (2.2-3.7cm) Aortic Valve AoV Peak Harvinder.202.9cm/sAoV VTI43.1cm AO Peak GR.16.5mmHgLVOT Peak Harvinder.88.3cm/s AO Mean GR.7mmHgAVA (VMAX)1.54cm2 MESHA (VTI)1.50cm2 Mitral Valve MV E Xsmxwzxk967.7cm/sMV E Peak Gr.9mmHg MV DECEL [id number] A Rqdgnoed22.0cm/s MV E Mean Gr.3mmHgE/A Ratio1.2 Pulmonary Valve PV Peak Onhbbimn726.2cm/s Tricuspid Valve TR P. Vfqdgoyh070pr/sRAP CPLZCSRL7msOd TR Peak Gr.32bjEfAEXJ51ydXd LEFT VENTRICLE The left ventricle is normal size. There is mild concentric left ventricular hypertrophy. The left ve ntricular systolic function is normal and the ejection fraction is within normal range. The Ejection Fraction is 55-60%. There is normal LV segmental wall motion. Transmitral Doppler flow pattern is Gra de II-pseudonormal filling dynamics. RIGHT VENTRICLE The right ventricle is mildly dilated. There is normal right ventricular wall thickness. The right ve ntricular systolic function is normal. ATRIA The left atrium is mildly dilated. The right atrium size is normal. The interatrial septum is intact with no evidence for an atrial septal defect or patent foramen ovale as noted on 2-D or Doppler imagi ng. AORTIC VALVE The aortic valve is trileaflet. The aortic valve is moderately calcified. Doppler and Color Flow reve aled no significant aortic regurgitation. There is mild valvular aortic stenosis. Calculated aortic v alve area is 1.5 cm2 with maximum pressure gradient of 16.5 mmHg and mean pressure gradient of 7 mmHg . MITRAL VALVE Mitral annular calcification is mild. There is no evidence of mitral valve prolapse. There is no mitr al valve stenosis. Doppler and Color-flow revealed moderate mitral regurgitation. TRICUSPID VALVE The tricuspid valve is normal in structure and function. Doppler and Color Flow revealed mild tricusp id regurgitation. The PA pressure was estimated at 37 mmHg. There is no tricuspid valve prolapse or v egetation. There is no tricuspid valve stenosis. PULMONIC VALVE The pulmonary valve is normal in structure and function. Doppler and Color Flow revealed trace pulmon ic valvular regurgitation. There is no pulmonic valvular stenosis. GREAT VESSELS The aortic root is normal in size. The ascending aorta is normal in size. The IVC is normal in size a nd collapses >50% with inspiration. PERICARDIAL EFFUSION There is a trace pericardial effusion with no hemodynamic significance. Critical Notification Critical Value: No <Conclusion> The left ventricle is normal size. The left ventricular systolic function is normal and the ejection fraction is within normal range. The Ejection Fraction is 55-60%. There is mild concentric left ventricular hypertrophy. There is mild valvular aortic stenosis. Calculated aortic valve area is 1.5 cm2 with maximum pressure gradient of 16.5 mmHg and mean pressure gradient of 7 mmHg. Doppler and Color Flow revealed no significant aortic regurgitation. Doppler and Color-flow revealed moderate mitral regurgitation. Doppler and Color Flow revealed mild tricuspid regurgitation. The PA pressure was estimated at 37 mmHg. Signed by : Eh Boudreaux MD Electronically Approved : 05/04/2019 09:06:14
== END | disposition home or self-care (01) ==
LOC: ECHO 07:45
PROVIDERS: ATTEND Internal Medicine Cardiovascular Disease
DX: I08.3 Combined rheumatic disorders of mitral, aortic and tricuspid valves (principal); I25.10 Atherosclerotic heart disease of native coronary artery without angina pectoris
CPT/HCPCS: 93306

== ENCOUNTER → 2019-08-30 | Outpatient (CLI) | payer OTHER ==
[2018-01-19 11:32] VITALS: BP 132/57
[~2019-08-30] MED LIST changes: +BUPIVACAINE MPF 0.25% 10 ML VIAL. ONE; +IOHEXOL 180 MG/ML 10 ML VIAL. ONE; +LEVO125T5 PO; +methylPREDNISolone ACETATE 40 MG/ML VIAL. ONE; +methylPREDNISolone ACETATE 80 MG/ML VIAL. ONE
--- NOTE | 2019-08-30 21:48 | PAIN ---
DATE OF SERVICE: 08/30/2019 INITIAL CONSULTATION FOR PAIN CLINIC CHIEF COMPLAINT: Bilateral posterior hip pain. HISTORY OF PRESENT ILLNESS: This is a 63-year-old female who presents with history of pain in the low back and hips posteriorly for several months about 3-4 months. 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 The patient reports no injury or action that she is aware of, came up with time and after radiation therapy. The patient reports the pain is constant, sharp, stabbing and shooting in the low back, worse on the right than the left, but present bilaterally. No significant radiation to lower extremities, but worse with walking, standing, changing positions, especially when she stands from a seated position or with standing and walking. The patient reports it awakes her up at night occasionally, but not every night, can affect her bowel or bladder control, but no incontinence from the pain. The patient reports it does affect her ability to walk significantly, she is using a walker or cane and she is in wheelchair today. The patient has had physical therapy, also doing exercise on her own, stretching and strengthening, using heat application to the low back and hips as well posteriorly. The patient is taking hydrocodone, which also helps to a moderate extent about 50% or so. The patient reports no loss of motor function. No radiation into lower extremities or other complaints. PAST MEDICAL HISTORY: Significant for type 2 diabetes, hypothyroidism. Again, lung cancer stage 4 with metastases, history of hypertension, coronary artery disease with stent placements. OTHER SURGERIES: Include , tonsillectomy, cardiac window and subclavian port placement. The patient rates his disability from 0-10, 10 being the worst, is a 7 with family home responsibilities, social activity, 8 with recreation and occupation, 6 with self-care and 4 with life support activities. FAMILY HISTORY: Significant for various types of cancers. SOCIAL HISTORY: The patient does not drink alcohol, does not smoke. Denies any illegal, illicit or recreational drugs. Quit smoking about 5 years ago, previously 1 pack a day for 18 years prior to that. The patient is , lives with her spouse, lives locally in [place], [place]. REVIEW OF SYSTEMS: The patient's review of systems is positive for those items mentioned in history of present illness. All systems reviewed and otherwise negative. It is complete, full and well documented on the patient's chart. CURRENT MEDICATIONS: The patient's medications are listed on the patient's chart as well. ALLERGIES: THE PATIENT IS ALLERGIC TO [employer]. PHYSICAL EXAMINATION: VITAL SIGNS: The patient's blood pressure is 149/58, pulse 65, respirations 18, temperature is 98.5 degrees Fahrenheit, height is 5 feet 11 inches, weight 247 pounds. GENERAL: The patient is awake, alert, oriented, appropriate, very pleasant demeanor. HEENT: Head shows normocephalic, atraumatic. Extraocular movements are intact and symmetrical. Oral cavity: Mucous membranes moist and pink. Dentition is intact. NECK: Shows anterior throat supple without palpable lymphadenopathy noted. Swallow reflex symmetrical. CHEST: Shows normal on inspection. Breath sounds are distant, but clear bilaterally. HEART: Shows S1, S2 clear. No murmurs auscultated. ABDOMEN: Obese, soft, nontender, nondistended. BACK: Shows spine grossly in the midline. Normal appearing cervical lordotic curvature, thoracic kyphotic curvature and lumbar lordotic curvature. Lumbar paraspinous muscle shows symmetrical on inspection, some moderate tenderness with inferior aspect of the lumbar paraspinous muscles only bilaterally, but this is symmetrical without evidence of atrophy, hypertrophy, no trigger points. There is moderate tenderness over the posterior superior iliac spines and significant tenderness over the right posterior sacroiliac region as well as moderate tenderness over the left sacroiliac region without specific radiation. No specific tenderness over the sacrum itself upper and lower throughout. The patient has good rotational motion of lumbar spine, both laterally as well as extension and flexion without significant increase in pain. EXTREMITIES: Lower extremities show deep tendon reflexes 1+ in the patellar and tendo calcaneus tendons. Motor exam is strong with 5/5 dorsiflexion and extension, quadriceps and hamstring flexion approximately 4 on a scale of 5, but symmetrical. Peripheral pulses are 1+ posterior tibia. No peripheral edema is noted bilaterally. Lower extremities are warm and dry to touch, equal in color and appearance. The patient is able to stand, but has a significant difficulty getting up from a seated position and requires some assistance under both arms to help her stand secondary to the pain in the posterior hips and low back. SKIN: Shows warm and dry, good turgor. No edema. No sores, rashes or bruising noted throughout. IMPRESSION: 1. This is a 63-year-old female with approximately 3-4 month history of increasing pain in the posterior gluteus region as well as low back and sacral region consistent with sacroiliitis on the right and left. 2. History of stage 4 left lung adenocarcinoma. 3. Hypertension. 4. Diabetes. PLAN: Options were discussed with the patient and the patient's spouse who accompanied her to visit today. We discussed conservative medical managements, continued physical therapy as well as interventional techniques. She would like to pursue interventional techniques. We discussed bilateral sacroiliac joint injections using description as well as anatomical models to describe the procedure. Risks were then discussed including, but not limited to bleeding, infection, possibility of intravascular injection and sequelae, spread of local anesthetic and numbness, side effects of steroid medication, exposure to fluoroscopy and poor results regarding pain control. The patient understands and wished to proceed. The patient will return to clinic in approximately 2 weeks for followup. She was counseled as to return appointment, activity level and side effects to be aware of. DIAGNOSIS: Bilateral sacroiliitis. PROCEDURE: Bilateral sacroiliac joint injection using C-arm fluoroscopic guidance under sterile prep and drape using local anesthetic. MEDICATION INJECTED: Total of 120 mg Depo-Medrol plus a total of 4 mL of 0.25% bupivacaine and 3 mL of contrast. CONDITION AT DISCHARGE: Stable. The patient tolerated procedure well, had no complications. TORSTEN YU MD DR: MARGOT/kaz JOB#: [id number] / [id number] SHANIKA Urrutia MD
== END ==
LOC: PNCL 08:28
PROVIDERS: ATTEND Anesthesiology
DX: M46.1 Sacroiliitis, not elsewhere classified (principal); E11.9 Type 2 diabetes mellitus without complications; E03.9 Hypothyroidism, unspecified; I25.10 Atherosclerotic heart disease of native coronary artery without angina pectoris; Z98.890 Other specified postprocedural states; Z85.118 Personal history of other malignant neoplasm of bronchus and lung; Z88.8 Allergy status to other drugs, medicaments and biological substances
CPT/HCPCS: 27096; J1030; J1040; J3490; Q9965; 20600; 77002

== ENCOUNTER 2019-09-23 10:58 | Inpatient (IN) | payer OTHER ==
[~2019-09-23] VITALS: Ht 180.3 cm; Wt 103.2 kg
[2019-09-23] VITALS (13 sets, daily range): BP systolic 135–170; BP diastolic 56–87
[~2019-09-23 10:58] MED LIST changes: -BUPIVACAINE MPF 0.25% 10 ML VIAL. ONE; -IOHEXOL 180 MG/ML 10 ML VIAL. ONE; -methylPREDNISolone ACETATE 40 MG/ML VIAL. ONE; -methylPREDNISolone ACETATE 80 MG/ML VIAL. ONE
[2019-09-23] MEDS ORDERED: IV NORMAL SALINE 1000ML BAG 1,000 ML IV SCH (11:01)
--- NOTE | 2019-09-23 11:08 | PHYS DOC ---
Past Medical History Past Medical History: CAD, Cancer, Diabetes-Type II, Hypertension Additional Past Medical Histor: Lung cancer/chemo therapy Past Surgical History: Other Additional Past Surgical Histo: cardiac stent placement, nina cath to Rt chest Alcohol Use: None Drug Use: None Adult General Chief Complaint Chief Complaint: HYPERGLYCEMIA HPI HPI Patient is a 63-year-old female who presents with report of hyperglycemia last 3 days nausea and vomiting that started this morning. Patient indicates that she has had several episodes of vomiting. Patient reportedly has history of metastatic lung cancer she has had difficulty in managing her blood sugars for quite some time now. She denies any chest pain or shortness of breath. She also denies any abdominal pain or back pain. Patient states she has had no fever. She does feel chills however. Patient states that she is a type I diabetic and was diagnosed with diabetes at age 18.[] Review of Systems Review of Systems Constitutional: Denies fever or chills [] Respiratory: Denies cough or shortness of breath [] Cardiovascular: No additional information not addressed in HPI [] GI: Denies abdominal pain. Complains of nausea and vomiting without diarrhea [] Musculoskeletal: Denies back pain or joint pain [] Integument: Denies rash or skin lesions [] Neurologic: Denies headache, focal weakness or sensory changes [] All other systems were reviewed and found to be within normal limits, except as documented in this note. Current Medications Current Medications Current Medications Medications (Trade) Dose Ordered Sig/[facility] Start Time Stop Time Status Last Admin Dose Admin Insulin Human Regular 150 ml @ 0 mls/hr 1X ONCE 09/23/19 12:00 09/23/19 12:01 [place] Ondansetron HCl (Zofran) 4 mg 1X ONCE 09/23/19 11:15 09/23/19 11:16 DC 09/23/19 11:24 4 MG Sodium Chloride 1,000 ml @ 1,000 mls/hr Q1H 09/23/19 11:01 09/23/19 12:00 DC 09/23/19 11:23 1,000 MLS/HR Allergies Allergies Allergies Coded Allergies Type Severity Reaction Last Updated Verified No Known Drug Allergies 02/25/17 No Physical Exam Physical Exam Constitutional: Well developed, well nourished, no acute distress, non-toxic appearance. [] HENT: Normocephalic, atraumatic, bilateral external ears normal, oropharynx dry, no oral exudates, nose normal. [] Eyes: PERRLA, EOMI, conjunctiva normal, no discharge. [] Neck: Normal range of motion, no tenderness, supple, no stridor. [] Cardiovascular: Regular rate and rhythm[] Lungs & Thorax: Bilateral breath sounds clear to auscultation [] Abdomen: Bowel sounds normal, soft, no tenderness. [] Skin: Warm, dry, no erythema, no rash. [] Extremities: No tenderness, no cyanosis, no clubbing, ROM intact, no edema. [] Neurologic: Alert and oriented X 3, no focal deficits noted. [] Current Patient Data Vital Signs Vital Signs Date Time Temp Pulse Resp B/P (MAP) Pulse Ox O2 Delivery O2 Flow Rate FiO2 09/23/19 12:10 98 18 171/92 (118) 97 09/23/19 11:01 98.4 Room Air 98.4 Lab Values Laboratory Tests Test 09/23/19 11:15 09/23/19 11:27 Glucose (Fingerstick) 361 mg/dL (70-99) H White Blood Count 8.1 x10^3/uL (4.0-11.0) Red Blood Count 3.33 x10^6/uL (3.50-5.40) L Hemoglobin 10.1 g/dL (12.0-15.5) L Hematocrit 31.1 % (36.0-47.0) L Mean Corpuscular Volume 93 fL (79-100) Mean Corpuscular Hemoglobin 30 pg (25-35) Mean Corpuscular Hemoglobin Concent 33 g/dL (31-37) Red Cell Distribution Width 14.9 % (11.5-14.5) H Platelet Count 278 x10^3/uL (140-400) Neutrophils (%) (Auto) 85 % (31-73) H Lymphocytes (%) (Auto) 5 % (24-48) L Monocytes (%) (Auto) 9 % (0-9) Eosinophils (%) (Auto) 0 % (0-3) Basophils (%) (Auto) 1 % (0-3) Neutrophils # (Auto) 6.9 x10^3/uL (1.8-7.7) Lymphocytes # (Auto) 0.4 x10^3/uL (1.0-4.8) L Monocytes # (Auto) 0.7 x10^3/uL (0.0-1.1) Eosinophils # (Auto) 0.0 x10^3/uL (0.0-0.7) Basophils # (Auto) 0.1 x10^3/uL (0.0-0.2) Segmented Neutrophils % 87 % (35-66) H Lymphocytes % 8 % (24-48) L Monocytes % 5 % (0-10) Platelet Estimate Adequate (ADEQUATE) Platelet Clumps, EDTA Present Large Platelets Present Sodium Level 134 mmol/L (136-145) L Potassium Level 4.0 mmol/L (3.5-5.1) Chloride Level 97 mmol/L (98-107) L Carbon Dioxide Level 11 mmol/L (21-32) *L Anion Gap 26 (6-14) H Blood Urea Nitrogen 38 mg/dL (7-20) H Creatinine 2.9 mg/dL (0.6-1.0) H Estimated GFR (Cockcroft-Gault) 16.3 BUN/Creatinine Ratio 13 (6-20) Glucose Level 371 mg/dL (70-99) H Calcium Level 9.2 mg/dL (8.5-10.1) Magnesium Level 1.5 mg/dL (1.8-2.4) L Total Bilirubin 0.5 mg/dL (0.2-1.0) Aspartate Amino Transferase (AST) 10 U/L (15-37) L Alanine Aminotransferase (ALT) 12 U/L (14-59) L Alkaline Phosphatase 142 U/L (46-116) H Total Protein 6.8 g/dL (6.4-8.2) Albumin 2.9 g/dL (3.4-5.0) L Albumin/Globulin Ratio 0.7 (1.0-1.7) L Lipase 98 U/L (73-393) Acetone Level Sm pos (NEG) Laboratory Tests 09/23/19 11:27 Laboratory Tests 09/23/19 11:27 EKG EKG EKG demonstrates sinus rhythm with rate of 95.[] Radiology/Procedures Radiology/Procedures [] Course & Med Decision Making Course & Med Decision Making Pertinent Labs and Imaging studies reviewed. (See chart for details) [] Dragon Disclaimer Dragon Disclaimer This electronic medical record was generated, in whole or in part, using a voice recognition dictation system. Departure Departure Impression: Primary Impression: Diabetic ketoacidosis Additional Impression: [id number] kidney injury Disposition: 09 ADMITTED INPATIENT Admitting Physician: MARYCRUZ (Dr Le) Condition: IMPROVED Referrals: SHANIKA PAZ MD (PCP) Problem Qualifiers Primary Impression: Diabetic ketoacidosis Diabetes mellitus type: type 1 Diabetes mellitus complication detail: without coma Qualified Codes: E10.10 - Type 1 diabetes mellitus with ketoacidosis without coma Additional Impression: Pighi-kl-[id number] kidney injury Acute renal failure type: unspecified Chronic kidney disease stage: unspecified stage Qualified Codes: N17.9 - Acute kidney failure, unspecified; N18.9 - Chronic kidney disease, unspecified MP FRANKLIN Jr. DO Sep 23, 2019 11:08
[2019-09-23] MEDS ORDERED: ONDANSETRON PF 4 MG/2 ML VIAL. IV ONE (11:15)
[2019-09-23 11:36] LABS: BASO # 0.1 x10^3/uL (0.0-0.2); BASO % 1 % (0-3); EOS % 0 % (0-3); HEMATOCRIT 31.1 % (36.0-47.0); HEMOGLOBIN 10.1 g/dL (12.0-15.5); LYMPH # 0.4 x10^3/uL (1.0-4.8); LYMPH % 5 % (24-48); MEAN CORPUSCULAR HEMOGLOBIN 30 pg (25-35); MEAN CORPUSCULAR HGB CONC 33 g/dL (31-37); MEAN CORPUSCULAR VOLUME 93 fL (79-100); MONO # 0.7 x10^3/uL (0.0-1.1); MONO % 9 % (0-9); NEUT # 6.9 x10^3/uL (1.8-7.7); NEUT % 85 % (31-73); PLATELET COUNT 278 x10^3/uL (140-400); RED BLOOD COUNT 3.33 x10^6/uL (3.50-5.40); RED CELL DISTRIBUTION WIDTH 14.9 % (11.5-14.5); WHITE BLOOD COUNT 8.1 x10^3/uL (4.0-11.0)
[2019-09-23 11:49] LABS: ALBUMIN 2.9 g/dL (3.4-5.0); ALBUMIN/GLOBULIN RATIO 0.7 (1.0-1.7); CALCIUM 9.2 mg/dL (8.5-10.1); CREATININE 2.9 mg/dL (0.6-1.0); GFR 16.3; MAGNESIUM 1.5 mg/dL (1.8-2.4); TOTAL BILIRUBIN 0.5 mg/dL (0.2-1.0); TOTAL PROTEIN 6.8 g/dL (6.4-8.2)
[2019-09-23] MEDS ORDERED: INSULIN,REGULAR 150 UNIT DRIP 150 ML IV ONE (12:00)
[2019-09-23 12:14] LABS: % LYMPHS 8 % (24-48); % MONOS 5 % (0-10); % SEGS 87 % (35-66)
[2019-09-23 12:16] LABS: PLATELET CLUMP PRESENT; PLT ESTIMATE ADEQUATE (ADEQUATE)
--- NOTE | 2019-09-23 12:19 | PDOC1 ---
History and Physical Date of Admission Date of Admission DATE: 09/23/19 TIME: 12:17 Identification/Chief Complaint Chief Complaint Nausea and vomiting Source Source: Patient History of Present Illness History of Present Illness Ms Landeros is a 63 yo F w/ PMHx CAD s/p stenting, Lung Ca stage IV adenocarcinoma s/p chemo, rad x (on opdivo currently), DM1 (since age 18), HTN who presents with report of hyperglycemia last 3 days nausea and vomiting that started this morning. Patient indicates that she has had several episodes of vomiting. Patient reportedly has history of metastatic lung cancer she has had difficulty in managing her blood sugars for quite some time now. Her is bedside with a log of blood glucose. She has not had 1 episode of DKA since she was initially diagnosed. Her notes progressively higher doses of insulin the past 3 days have not dropped her blood sugar and she has not eaten at all for the past 36 hours. She was constipated from recent opioid script and has been having difficulty with BM, but took a miralax dose and suppository yesterday with some relief. She denies any chest pain or shortness of breath. She also denies any abdominal pain, but she does note recent lower back pain that has been progressive and she was recently started on hydrocodone for presumptive bony mets for which she has also previously received radiation therapy. She has also been on Opdivo every two weeks, she states for about 2 years, last dose last week. No prior DKA since starting opdivo. Patient states she has had no fever. She does feel chills however. Her is concerned that she has been having weakness, tremors and confusion the past few days as well. Labs notable for Hb 10.1. ABG 7.28/20/109. Mag 1.5, Na, 134, K 4, Cl 97, CO2 11, BUN 38, Cr 2.9, AG - 26 with ketones in blood. Glucose 371. She was started on IVF by ED and called for insulin GTT and ICU admission for DKA. Past Medical History Cardiovascular: CAD, HTN Pulmonary: Other GI: No pertinent hx Heme/Onc: Cancer Hepatobiliary: No pertinent hx Psych: Anxiety Musculoskeletal: low back pain Rheumatologic: No pertinent hx Infectious disease: No pertinent hx ENT: No pertinent hx Renal/: Chronic renal insuff Endocrine: Diabetes Dermatology: No pertinent hx Past Surgical History Past Surgical History: Other Family History Family History: No Significant Social History Smoke: No ALCOHOL: none Drugs: None Current Problem List Problem List Problems Medical Problems: (1) Diabetic ketoacidosis Status: Acute Current Medications Current Medications Current Medications Sodium Chloride 1,000 ml @ 1,000 mls/hr Q1H IV Last administered on 09/23/19at 11:23; Start 09/23/19 at 11:01; Stop 09/23/19 at 12:00; Status DC Ondansetron HCl (Zofran) 4 mg 1X ONCE IV Last administered on 09/23/19at 11:24; Start 09/23/19 at 11:15; Stop 09/23/19 at 11:16; Status DC Insulin Human Regular 150 ml @ 0 mls/hr 1X ONCE IV ; Start 09/23/19 at 12:00; Stop 09/23/19 at 12:01; Status DC Active Scripts Active Reported Levothyroxine Sodium 125 Mcg Tablet 1 Tab PO DAILY Hydrocodone-Acetamin 5-325 mg (Hydrocodone/Acetaminophen) 1 Each Tablet 1 Each PO Q6HRS Novolog Flexpen (Insulin Aspart) 100 Unit/1 Ml Insuln.pen 1 Unit SQ PRN SSI Blood Sugar Level Breakfast Lunch Dinner HS > 180 to 200 1 1 1 0 > 200 to 250 2 2 2 0 > 250 to 300 3 3 3 1 > 300 to 400 4 4 4 2 > 400 5 5 5 3 Food Carbs is whatever the total carbs are divided by 8=amount of units to be added to SSI and plus 10 units for the steriods to be given. exaple: SSI + Carbs + Steriod = total units of insulin to be given daily Levemir Flextouch (Insulin Detemir) 100 Unit/1 Ml Insuln.pen 18 Unit SQ HS Wellbutrin Xl (Bupropion Hcl) 150 Mg Tab.er.24h 150 Mg PO DAILY Amlodipine Besylate 10 Mg Tablet 10 Mg PO DAILY Zofran Odt (Ondansetron) 8 Mg Tab.rapdis 8 Mg PO BID PRN Clonidine Hcl 0.1 Mg Tablet 0.1 Mg PO BID if b/p over 145. Folic Acid 1 Mg Tablet 1 Mg PO DAILY Vitamin D (Cholecalciferol (Vitamin D3)) 1,000 Unit Tablet 1,000 Unit PO DAILY Metoprolol Tartrate 50 Mg Tablet 1 Tab PO BID Sertraline Hcl 100 Mg Tablet 100 Mg PO 2TABS PO DAILY Aspirin 81 Mg Tab.chew 1 Tab PO DAILY Allergies Allergies: Coded Allergies: No Known Drug Allergies (Unverified , 02/25/17) Vitals Vitals Vital Signs Date Time Temp Pulse Resp B/P (MAP) Pulse Ox O2 Delivery O2 Flow Rate FiO2 09/23/19 12:10 98 18 171/92 (118) 97 09/23/19 11:01 98.4 Room Air 98.4 Labs Labs Laboratory Tests Test 09/23/19 11:15 09/23/19 11:27 Glucose (Fingerstick) 361 mg/dL (70-99) White Blood Count 8.1 x10^3/uL (4.0-11.0) Red Blood Count 3.33 x10^6/uL (3.50-5.40) Hemoglobin 10.1 g/dL (12.0-15.5) Hematocrit 31.1 % (36.0-47.0) Mean Corpuscular Volume 93 fL (79-100) Mean Corpuscular Hemoglobin 30 pg (25-35) Mean Corpuscular Hemoglobin Concent 33 g/dL (31-37) Red Cell Distribution Width 14.9 % (11.5-14.5) Platelet Count 278 x10^3/uL (140-400) Neutrophils (%) (Auto) 85 % (31-73) Lymphocytes (%) (Auto) 5 % (24-48) Monocytes (%) (Auto) 9 % (0-9) Eosinophils (%) (Auto) 0 % (0-3) Basophils (%) (Auto) 1 % (0-3) Neutrophils # (Auto) 6.9 x10^3/uL (1.8-7.7) Lymphocytes # (Auto) 0.4 x10^3/uL (1.0-4.8) Monocytes # (Auto) 0.7 x10^3/uL (0.0-1.1) Eosinophils # (Auto) 0.0 x10^3/uL (0.0-0.7) Basophils # (Auto) 0.1 x10^3/uL (0.0-0.2) Segmented Neutrophils % 87 % (35-66) Lymphocytes % 8 % (24-48) Monocytes % 5 % (0-10) Platelet Estimate Adequate (ADEQUATE) Platelet Clumps, EDTA Present Large Platelets Present Sodium Level 134 mmol/L (136-145) Potassium Level 4.0 mmol/L (3.5-5.1) Chloride Level 97 mmol/L (98-107) Carbon Dioxide Level 11 mmol/L (21-32) Anion Gap 26 (6-14) Blood Urea Nitrogen 38 mg/dL (7-20) Creatinine 2.9 mg/dL (0.6-1.0) Estimated GFR (Cockcroft-Gault) 16.3 BUN/Creatinine Ratio 13 (6-20) Glucose Level 371 mg/dL (70-99) Calcium Level 9.2 mg/dL (8.5-10.1) Magnesium Level 1.5 mg/dL (1.8-2.4) Total Bilirubin 0.5 mg/dL (0.2-1.0) Aspartate Amino Transf (AST/SGOT) 10 U/L (15-37) Alanine Aminotransferase (ALT/SGPT) 12 U/L (14-59) Alkaline Phosphatase 142 U/L (46-116) Total Protein 6.8 g/dL (6.4-8.2) Albumin 2.9 g/dL (3.4-5.0) Albumin/Globulin Ratio 0.7 (1.0-1.7) Lipase 98 U/L (73-393) Acetone Level Sm pos (NEG) Laboratory Tests Test 09/23/19 11:15 09/23/19 11:27 Glucose (Fingerstick) 361 mg/dL (70-99) White Blood Count 8.1 x10^3/uL (4.0-11.0) Red Blood Count 3.33 x10^6/uL (3.50-5.40) Hemoglobin 10.1 g/dL (12.0-15.5) Hematocrit 31.1 % (36.0-47.0) Mean Corpuscular Volume 93 fL (79-100) Mean Corpuscular Hemoglobin 30 pg (25-35) Mean Corpuscular Hemoglobin Concent 33 g/dL (31-37) Red Cell Distribution Width 14.9 % (11.5-14.5) Platelet Count 278 x10^3/uL (140-400) Neutrophils (%) (Auto) 85 % (31-73) Lymphocytes (%) (Auto) 5 % (24-48) Monocytes (%) (Auto) 9 % (0-9) Eosinophils (%) (Auto) 0 % (0-3) Basophils (%) (Auto) 1 % (0-3) Neutrophils # (Auto) 6.9 x10^3/uL (1.8-7.7) Lymphocytes # (Auto) 0.4 x10^3/uL (1.0-4.8) Monocytes # (Auto) 0.7 x10^3/uL (0.0-1.1) Eosinophils # (Auto) 0.0 x10^3/uL (0.0-0.7) Basophils # (Auto) 0.1 x10^3/uL (0.0-0.2) Segmented Neutrophils % 87 % (35-66) Lymphocytes % 8 % (24-48) Monocytes % 5 % (0-10) Platelet Estimate Adequate (ADEQUATE) Platelet Clumps, EDTA Present Large Platelets Present Sodium Level 134 mmol/L (136-145) Potassium Level 4.0 mmol/L (3.5-5.1) Chloride Level 97 mmol/L (98-107) Carbon Dioxide Level 11 mmol/L (21-32) Anion Gap 26 (6-14) Blood Urea Nitrogen 38 mg/dL (7-20) Creatinine 2.9 mg/dL (0.6-1.0) Estimated GFR (Cockcroft-Gault) 16.3 BUN/Creatinine Ratio 13 (6-20) Glucose Level 371 mg/dL (70-99) Calcium Level 9.2 mg/dL (8.5-10.1) Magnesium Level 1.5 mg/dL (1.8-2.4) Total Bilirubin 0.5 mg/dL (0.2-1.0) Aspartate Amino Transf (AST/SGOT) 10 U/L (15-37) Alanine Aminotransferase (ALT/SGPT) 12 U/L (14-59) Alkaline Phosphatase 142 U/L (46-116) Total Protein 6.8 g/dL (6.4-8.2) Albumin 2.9 g/dL (3.4-5.0) Albumin/Globulin Ratio 0.7 (1.0-1.7) Lipase 98 U/L (73-393) Acetone Level Sm pos (NEG) VTE Prophylaxis Ordered VTE Prophylaxis Devices: Yes VTE Pharmacological Prophylaxi: Yes Assessment/Plan Assessment/Plan A/P: Diabetic ketoacidosis - will search for infectious cause, UA, blood cultures vs possible opdivo side effect (this is relatively common in general population, but given how long she has been on opdivo this is difficult to say). DKA protocol, fluids [id number] kidney injury - will give aggressive IVF for tonight. Likely vasomotor nephropathy from poor PO intake Stage IV adenocarcinoma of lung - with h/o significant pericardial effusion s/p pericardial window with progressive disease despite immunotherapy with Opdivo, December 2018 with symptomatic disease in the right vertebral body of L3, central sacrum and left iliac bone s/p 10 radiation treatments Metabolic acidosis - likely from DKA, will check lactate as well. No respiratory component Hypomagnesemia - DKA related, will replace Anemia - likely of chronic disease with cancer, CKD, will not get iron studies CAD s/p stenting - cont meds HTN - cont meds Acute encephalopathy - likely DKA vs opioid dosing related. Will obtain head imaging if she continues to have issues after gap has closed FEN - NPO. ADA diet after gap closes PPX - heparin TID FULL CODE Dispo - ICU for DKA CC time 57 minutes MELANY BANKS MD Sep 23, 2019 12:19
[2019-09-23 12:24] LABS: BASE EXCESS ABG -16 mmol/L (-3-3); HCO3 ABG 9 mmol/L (21-28); PO2 ABG 109 mmHg (65-108); SAT O2 ABG 97 % (92-99)
[2019-09-23 12:28] LABS: PCO2 ABG 20 mmHg (35-46)
[2019-09-23] MEDS ORDERED: ONDANSETRON PF 4 MG/2 ML VIAL. IV PRN (12:30)
--- NOTE | 2019-09-23 13:30 | NUR ---
Rec'd fro ER per cart. Awake but confused and flighty of thought HANLEY but diff following thru on commands. at bedside . Stated pt had been like this for several days. Here with DKA. Port accessed on Rt with good return of blood Insulin gtt infusing. Mouth dry. Denies need to void at this time. Denies nausea as well. Will cont DKA protocol with Glucostabilizer. Dr Le to see soon
[2019-09-23] MEDS ORDERED: MAGNESIUM SULFATE 4GM 100 ML IV PRN (14:00)
[2019-09-23] MEDS: IV DEXTROSE 5% - 0.9 % NACL 1,000 ML IV SCH ×3 (14:00→22:31)
[2019-09-23] MEDS ORDERED: INSULIN REGULAR VIAL 150 UNIT in 0.9 % SODIUM CHLORIDE 150ML 150 ML IV PRN (14:00)
[2019-09-23] MEDS ORDERED: ACETAMINOPHEN 650 MG SUPP.RECT. PR PRN (16:00)
[2019-09-23] MEDS ORDERED: BISACODYL 10 MG SUPP.RECT. PR PRN (16:00)
[2019-09-23 16:03] LABS: CALCIUM 9.1 mg/dL (8.5-10.1); CREATININE 2.8 mg/dL (0.6-1.0); MAGNESIUM 2.1 mg/dL (1.8-2.4); PHOSPHORUS 2.3 mg/dL (2.6-4.7); POTASSIUM 3.8 mmol/L (3.5-5.1)
[2019-09-23] MEDS ORDERED: POTASSIUM CHLORIDE 10MEQ 100 ML IV PRN (16:45)
[2019-09-23] MEDS ORDERED: SODIUM PHOSPHATE 20 MMOL in IV DEXTROSE 5% 250 ML IV PRN (16:45)
[2019-09-23] MEDS ORDERED: SODIUM PHOSPHATE 20 MMOL in IV DEXTROSE 5% 250 ML IV ONE (17:00)
[2019-09-23] MEDS: POTASSIUM CHLORIDE 10MEQ 100 ML IV SCH ×4 (17:38→21:01)
[2019-09-23] MEDS ORDERED: INSU100V13 SQ (18:48)
[2019-09-23] MEDS ORDERED: OXYC20TA34 PO (18:48)
[2019-09-23] MEDS ORDERED: SENN8.8S5 PO (18:48)
[2019-09-23] MEDS ORDERED: LEVO175T5 PO (18:48)
[2019-09-23] MEDS ORDERED: CALC500T54 PO (18:48)
[2019-09-23] MEDS ORDERED: DOCU100C28 PO (18:48)
[2019-09-23] MEDS ORDERED: traZODone 50 MG TABLET. PO PRN (21:00)
[2019-09-23] MEDS: HEPARIN for SUB-Q USE 5,000 UNIT/ML VIAL. SQ SCH (21:39)
[2019-09-23] MEDS: cloNIDine HCL 0.1 MG TABLET PO SCH (21:40)
[2019-09-23] MEDS: METOPROLOL TART IMMED RELEASE 50 MG TABLET. PO SCH (21:41)
[2019-09-23 22:51] LABS: CALCIUM 8.8 mg/dL (8.5-10.1); CREATININE 2.4 mg/dL (0.6-1.0); GFR 20.3; MAGNESIUM 2.2 mg/dL (1.8-2.4); POTASSIUM 3.8 mmol/L (3.5-5.1)
[2019-09-23 23:57] LABS: BILIRUBIN,URINE LARGE (NEG); CLARITY,URINE CLEAR; COLOR,URINE YELLOW; NITRITE,URINE NEGATIVE (NEG); PH,URINE 5.5; PROTEIN,URINE NEGATIVE (NEG-TRACE); UROBILINOGEN,URINE 0.2 mg/dL (0.2 mg/dL)
[2019-09-24] VITALS (14 sets, daily range): BP systolic 112–166; BP diastolic 50–85
[2019-09-24] MEDS ORDERED: DEXTROSE 50% 25 GM / 50ML DISP.SYRIN. IV PRN
[2019-09-24] MEDS ORDERED: IV DEXTROSE 5% 250 ML BAG. IV PRN
[2019-09-24 00:03] LABS: BACTERIA,URINE MANY /HPF (0-FEW); SQUAMOUS EPITHELIAL CELL,UR FEW /LPF
[2019-09-24 00:04] LABS: RBC,URINE OCC /HPF (0-2)
[2019-09-24] MEDS: INSULIN GLARGINE SYRINGE. SQ SCH ×2 (00:12→20:44)
[2019-09-24] MEDS ORDERED: POTASSIUM PHOSPHATE DIBASIC 15 MMOL in IV NORMAL SALINE 250ML 250 ML IV ONE (00:15)
[2019-09-24 03:07] LABS: HEMOGLOBIN A1C 6.7 % (4.8-5.6)
[2019-09-24] MEDS: INSULIN LISPRO 300 UNITS/3 ML VIAL. SQ SCH ×9 (04:00→20:00)
[2019-09-24] MEDS: HYDROcodone/APAP 5/325MG 1 TAB TABLET PO SCH ×4 (05:18→17:10)
[2019-09-24] MEDS: LEVOTHYROXINE 125 MCG TABLET PO SCH (05:59)
[2019-09-24] MEDS: HEPARIN for SUB-Q USE 5,000 UNIT/ML VIAL. SQ SCH ×3 (06:04→20:44)
[2019-09-24 06:58] LABS: BASO % 1 % (0-3); EOS # 0.1 x10^3/uL (0.0-0.7); EOS % 3 % (0-3); HEMATOCRIT 28.3 % (36.0-47.0); HEMOGLOBIN 9.4 g/dL (12.0-15.5); LYMPH # 0.4 x10^3/uL (1.0-4.8); LYMPH % 7 % (24-48); MEAN CORPUSCULAR HEMOGLOBIN 30 pg (25-35); MEAN CORPUSCULAR HGB CONC 33 g/dL (31-37); MEAN CORPUSCULAR VOLUME 91 fL (79-100); MONO # 0.6 x10^3/uL (0.0-1.1); MONO % 12 % (0-9); NEUT % 77 % (31-73); PLATELET COUNT 233 x10^3/uL (140-400); RED CELL DISTRIBUTION WIDTH 15.1 % (11.5-14.5); WHITE BLOOD COUNT 5.1 x10^3/uL (4.0-11.0)
[2019-09-24 07:14] LABS: GFR 25.1
--- NOTE | 2019-09-24 07:14 | EKG ---
[facility] [address] [place] [address] Test Date: 2019-09-23 Test Time: 11:12:25 Pat Name: QUINTON BEARD Department: Room: Gender: F [employer]: : 1955 Requested By: MP FRANKLIN Order Number: [id number] Reading MD: Measurements Intervals [place] Rate: 95 P: 39 MA: 158 QRS: -11 QRSD: 98 T: 99 QT: 358 QTc: 453 Interpretive Statements SINUS RHYTHM LEFTWARD AXIS T ABNORMALITY IN ANTERIOR LEADS LATERAL LEADS ABNORMAL ECG RI6.01 No previous ECG available for comparison
[2019-09-24] MEDS: FOLIC ACID 1 MG TABLET. PO SCH (08:28)
[2019-09-24] MEDS: CHOLECALCIFEROL (VITAMIN D3) 1,000 UNIT TABLET PO SCH (08:28)
[2019-09-24] MEDS: buPROPion XL 150 MG TAB.ER.24H. PO SCH (08:28)
[2019-09-24] MEDS: SERTRALINE 50 MG TABLET. PO SCH (08:28)
[2019-09-24] MEDS: ASPIRIN CHEWABLE 81 MG TABLET. PO SCH (08:28)
[2019-09-24] MEDS: METOPROLOL TART IMMED RELEASE 50 MG TABLET. PO SCH ×2 (08:29→20:44)
[2019-09-24] MEDS: amLODIPine BESYLATE 10 MG TABLET PO SCH (08:29)
[2019-09-24] MEDS: cloNIDine HCL 0.1 MG TABLET PO SCH ×2 (08:29→20:44)
[2019-09-24] MEDS ORDERED: DOCUSATE SODIUM 100 MG CAPSULE. PO PRN (09:00)
--- NOTE | 2019-09-24 09:01 | PDOC ---
PROGRESS NOTES Chief Complaint Chief Complaint A/P: Diabetic ketoacidosis - will search for infectious cause, UA, blood cultures vs possible opdivo side effect (this is relatively common in general population, bu t given how long she has been on opdivo this is difficult to say). DKA protocol, fluids [id number] kidney injury - will give aggressive IVF for tonight. Likely vasomotor nephropathy from poor PO intake Stage IV adenocarcinoma of lung - with h/o significant pericardial effusion s/p pericardial window with progressive disease despite immunotherapy with Opdivo, December 2018 with symptomatic disease in the right vertebral body of L3, central sacrum and left iliac bone s/p 10 radiation treatments Metabolic acidosis - likely from DKA, will check lactate as well. No respiratory component Hypomagnesemia - DKA related, will replace Anemia - likely of chronic disease with cancer, CKD, will not get iron studies CAD s/p stenting - cont meds HTN - cont meds Acute encephalopathy - likely DKA vs opioid dosing related. Will obtain head imaging if she continues to have issues after gap has closed FEN - ADA diet PPX - heparin TID FULL CODE Dispo - ICU for DKA. Can downgrade to med/surg CC time 57 minutes History of Present Illness History of Present Illness Ms Landeros is a 63 yo F w/ PMHx CAD s/p stenting, Lung Ca stage IV adenocarcinoma s/p chemo, rad x (on opdivo currently), DM1 (since age 18), HTN who presents with report of hyperglycemia last 3 days nausea and vomiting that started this morning. Patient indicates that she has had several episodes of vomiting. Mary ent reportedly has history of metastatic lung cancer she has had difficulty in managing her blood sugars for quite some time now. Her is bedside with a log of blood glucose. She has not had 1 episode of DKA since she was initially diagnosed. Her notes progressively higher doses of insulin the past 3 days have not dropped her blood sugar and she has not eaten at all for the past 36 hours. She was constipated from recent opioid script and has been having difficulty with BM, but took a miralax dose and suppository yesterday with some relief. She denies any chest pain or shortness of breath. She also denies any abdominal pain, but she does note recent lower back pain that has been progressive and she was recently started on hydrocodone for presumptive bony mets for which she has also previously received radiation therapy. She has also been on Opdivo every two weeks, she states for about 2 years, last dose last week. No prior DKA since starting opdivo. Patient states she has had no fever. She does feel chills however. Her is concerned that she has been having weakness, tremors and confusion the past few days as well. Labs notable for Hb 10.1. ABG 7.28/20/109. Mag 1.5, Na, 134, K 4, Cl 97, CO2 11, BUN 38, Cr 2.9, AG - 26 with ketones in blood. Glucose 371. She was started on IVF by ED and called for insulin GTT and ICU admission for DKA. Gap closed overnight. More alert this morning, just sleepy. Labs improved. She is not eating her breakfast due to drowsiness. She occasionally thinks she is in [place]. plan: Await Heme/onc recs CT head Vitals Vitals Vital Signs Date Time Temp Pulse Resp B/P (MAP) Pulse Ox O2 Delivery O2 Flow Rate FiO2 09/24/19 08:29 78 181/72 09/24/19 06:00 20 98 Room Air 09/24/19 04:00 98.6 98.6 Physical Exam General: Alert, Oriented X3, Cooperative Heart: Regular rate, Normal S1, Normal S2 Lungs: Clear, Other Abdomen: Normal bowel sounds, Soft Extremities: No clubbing, No cyanosis Skin: No rashes, No breakdown Labs LABS Laboratory Tests Test 09/23/19 11:15 09/23/19 11:27 09/23/19 12:05 09/23/19 12:33 Glucose (Fingerstick) 361 mg/dL (70-99) 354 mg/dL (70-99) White Blood Count 8.1 x10^3/uL (4.0-11.0) Red Blood Count 3.33 x10^6/uL (3.50-5.40) Hemoglobin 10.1 g/dL (12.0-15.5) Hematocrit 31.1 % (36.0-47.0) Mean Corpuscular Volume 93 fL (79-100) Mean Corpuscular Hemoglobin 30 pg (25-35) Mean Corpuscular Hemoglobin Concent 33 g/dL (31-37) Red Cell Distribution Width 14.9 % (11.5-14.5) Platelet Count 278 x10^3/uL (140-400) Neutrophils (%) (Auto) 85 % (31-73) Lymphocytes (%) (Auto) 5 % (24-48) Monocytes (%) (Auto) 9 % (0-9) Eosinophils (%) (Auto) 0 % (0-3) Basophils (%) (Auto) 1 % (0-3) Neutrophils # (Auto) 6.9 x10^3/uL (1.8-7.7) Lymphocytes # (Auto) 0.4 x10^3/uL (1.0-4.8) Monocytes # (Auto) 0.7 x10^3/uL (0.0-1.1) Eosinophils # (Auto) 0.0 x10^3/uL (0.0-0.7) Basophils # (Auto) 0.1 x10^3/uL (0.0-0.2) Segmented Neutrophils % 87 % (35-66) Lymphocytes % 8 % (24-48) Monocytes % 5 % (0-10) Platelet Estimate Adequate (ADEQUATE) Platelet Clumps, EDTA Present Large Platelets Present Sodium Level 134 mmol/L (136-145) Potassium Level 4.0 mmol/L (3.5-5.1) Chloride Level 97 mmol/L (98-107) Carbon Dioxide Level 11 mmol/L (21-32) Anion Gap 26 (6-14) Blood Urea Nitrogen 38 mg/dL (7-20) Creatinine 2.9 mg/dL (0.6-1.0) Estimated GFR (Cockcroft-Gault) 16.3 BUN/Creatinine Ratio 13 (6-20) Glucose Level 371 mg/dL (70-99) Hemoglobin A1c 6.7 % (4.8-5.6) Calcium Level 9.2 mg/dL (8.5-10.1) Magnesium Level 1.5 mg/dL (1.8-2.4) Total Bilirubin 0.5 mg/dL (0.2-1.0) Aspartate Amino Transf (AST/SGOT) 10 U/L (15-37) Alanine Aminotransferase (ALT/SGPT) 12 U/L (14-59) Alkaline Phosphatase 142 U/L (46-116) Total Protein 6.8 g/dL (6.4-8.2) Albumin 2.9 g/dL (3.4-5.0) Albumin/Globulin Ratio 0.7 (1.0-1.7) Lipase 98 U/L (73-393) Acetone Level Sm pos (NEG) O2 Saturation 97 % (92-99) Arterial Blood pH 7.28 (7.35-7.45) Arterial Blood pCO2 at Patient Temp 20 mmHg (35-46) Arterial Blood pO2 at Patient Temp 109 mmHg (65-108) Arterial Blood HCO3 9 mmol/L (21-28) Arterial Blood Base Excess -16 mmol/L (-3-3) Test 09/23/19 13:46 09/23/19 14:49 09/23/19 15:45 09/23/19 15:55 Glucose (Fingerstick) 238 mg/dL (70-99) 263 mg/dL (70-99) 235 mg/dL (70-99) Sodium Level 136 mmol/L (136-145) Potassium Level 3.8 mmol/L (3.5-5.1) Chloride Level 100 mmol/L (98-107) Carbon Dioxide Level 16 mmol/L (21-32) Anion Gap 20 (6-14) Blood Urea Nitrogen 37 mg/dL (7-20) Creatinine 2.8 mg/dL (0.6-1.0) Estimated GFR (Cockcroft-Gault) 17.0 Glucose Level 269 mg/dL (70-99) Lactic Acid Level 1.5 mmol/L (0.4-2.0) Calcium Level 9.1 mg/dL (8.5-10.1) Phosphorus Level 2.3 mg/dL (2.6-4.7) Magnesium Level 2.1 mg/dL (1.8-2.4) Thyroid Stimulating Hormone (TSH) 1.723 uIU/mL (0.358-3.74) Test 09/23/19 17:01 09/23/19 18:04 09/23/19 19:10 09/23/19 20:12 Glucose (Fingerstick) 235 mg/dL (70-99) 214 mg/dL (70-99) 164 mg/dL (70-99) 147 mg/dL (70-99) Test 09/23/19 21:15 09/23/19 22:16 09/23/19 22:25 09/23/19 22:30 Glucose (Fingerstick) 120 mg/dL (70-99) 110 mg/dL (70-99) Urine Collection Type Unknown Urine Color Yellow Urine Clarity Clear Urine pH 5.5 Urine Specific [place] 1.015 Urine Protein Negative mg/dL (NEG-TRACE) Urine Glucose (UA) 250 mg/dL (NEG) Urine Ketones (Stick) 40 mg/dL (NEG) Urine Blood Negative (NEG) Urine Nitrite Negative (NEG) Urine Bilirubin Large (NEG) Urine Urobilinogen Dipstick 0.2 mg/dL (0.2 mg/dL) Urine Leukocyte Esterase Moderate (NEG) Urine RBC Occ /HPF (0-2) Urine WBC 11-20 /HPF (0-4) Urine Squamous Epithelial Cells Few /LPF Urine Bacteria Many /HPF (0-FEW) Urine Mucus Slight /LPF Sodium Level 139 mmol/L (136-145) Potassium Level 3.8 mmol/L (3.5-5.1) Chloride Level 104 mmol/L (98-107) Carbon Dioxide Level 21 mmol/L (21-32) Anion Gap 14 (6-14) Blood Urea Nitrogen 31 mg/dL (7-20) Creatinine 2.4 mg/dL (0.6-1.0) Estimated GFR (Cockcroft-Gault) 20.3 Glucose Level 107 mg/dL (70-99) Calcium Level 8.8 mg/dL (8.5-10.1) Phosphorus Level 2.0 mg/dL (2.6-4.7) Magnesium Level 2.2 mg/dL (1.8-2.4) Test 09/23/19 23:26 09/24/19 00:28 09/24/19 01:47 09/24/19 04:51 Glucose (Fingerstick) 95 mg/dL (70-99) 97 mg/dL (70-99) 91 mg/dL (70-99) 134 mg/dL (70-99) Test 09/24/19 05:45 09/24/19 06:30 09/24/19 08:25 White Blood Count 5.1 x10^3/uL (4.0-11.0) Red Blood Count 3.10 x10^6/uL (3.50-5.40) Hemoglobin 9.4 g/dL (12.0-15.5) Hematocrit 28.3 % (36.0-47.0) Mean Corpuscular Volume 91 fL (79-100) Mean Corpuscular Hemoglobin 30 pg (25-35) Mean Corpuscular Hemoglobin Concent 33 g/dL (31-37) Red Cell Distribution Width 15.1 % (11.5-14.5) Platelet Count 233 x10^3/uL (140-400) Neutrophils (%) (Auto) 77 % (31-73) Lymphocytes (%) (Auto) 7 % (24-48) Monocytes (%) (Auto) 12 % (0-9) Eosinophils (%) (Auto) 3 % (0-3) Basophils (%) (Auto) 1 % (0-3) Neutrophils # (Auto) 4.0 x10^3/uL (1.8-7.7) Lymphocytes # (Auto) 0.4 x10^3/uL (1.0-4.8) Monocytes # (Auto) 0.6 x10^3/uL (0.0-1.1) Eosinophils # (Auto) 0.1 x10^3/uL (0.0-0.7) Basophils # (Auto) 0.0 x10^3/uL (0.0-0.2) Sodium Level 140 mmol/L (136-145) Potassium Level 4.0 mmol/L (3.5-5.1) Chloride Level 108 mmol/L (98-107) Carbon Dioxide Level 20 mmol/L (21-32) Anion Gap 12 (6-14) Blood Urea Nitrogen 24 mg/dL (7-20) Creatinine 2.0 mg/dL (0.6-1.0) Estimated GFR (Cockcroft-Gault) 25.1 Glucose Level 143 mg/dL (70-99) Calcium Level 8.0 mg/dL (8.5-10.1) Phosphorus Level 3.2 mg/dL (2.6-4.7) Magnesium Level 1.9 mg/dL (1.8-2.4) Glucose (Fingerstick) 137 mg/dL (70-99) 188 mg/dL (70-99) Assessment and Plan Assessmemt and Plan Problems Medical Problems: (1) [id number] kidney injury Status: Acute (2) Diabetic ketoacidosis Status: Acute Comment Review of Relevant I have reviewed the following items chivo (where applicable) has been applied. Labs Laboratory Tests Test 09/23/19 11:15 09/23/19 11:27 09/23/19 12:05 09/23/19 12:33 Glucose (Fingerstick) 361 mg/dL (70-99) 354 mg/dL (70-99) White Blood Count 8.1 x10^3/uL (4.0-11.0) Red Blood Count 3.33 x10^6/uL (3.50-5.40) Hemoglobin 10.1 g/dL (12.0-15.5) Hematocrit 31.1 % (36.0-47.0) Mean Corpuscular Volume 93 fL (79-100) Mean Corpuscular Hemoglobin 30 pg (25-35) Mean Corpuscular Hemoglobin Concent 33 g/dL (31-37) Red Cell Distribution Width 14.9 % (11.5-14.5) Platelet Count 278 x10^3/uL (140-400) Neutrophils (%) (Auto) 85 % (31-73) Lymphocytes (%) (Auto) 5 % (24-48) Monocytes (%) (Auto) 9 % (0-9) Eosinophils (%) (Auto) 0 % (0-3) Basophils (%) (Auto) 1 % (0-3) Neutrophils # (Auto) 6.9 x10^3/uL (1.8-7.7) Lymphocytes # (Auto) 0.4 x10^3/uL (1.0-4.8) Monocytes # (Auto) 0.7 x10^3/uL (0.0-1.1) Eosinophils # (Auto) 0.0 x10^3/uL (0.0-0.7) Basophils # (Auto) 0.1 x10^3/uL (0.0-0.2) Segmented Neutrophils % 87 % (35-66) Lymphocytes % 8 % (24-48) Monocytes % 5 % (0-10) Platelet Estimate Adequate (ADEQUATE) Platelet Clumps, EDTA Present Large Platelets Present Sodium Level 134 mmol/L (136-145) Potassium Level 4.0 mmol/L (3.5-5.1) Chloride Level 97 mmol/L (98-107) Carbon Dioxide Level 11 mmol/L (21-32) Anion Gap 26 (6-14) Blood Urea Nitrogen 38 mg/dL (7-20) Creatinine 2.9 mg/dL (0.6-1.0) Estimated GFR (Cockcroft-Gault) 16.3 BUN/Creatinine Ratio 13 (6-20) Glucose Level 371 mg/dL (70-99) Hemoglobin A1c 6.7 % (4.8-5.6) Calcium Level 9.2 mg/dL (8.5-10.1) Magnesium Level 1.5 mg/dL (1.8-2.4) Total Bilirubin 0.5 mg/dL (0.2-1.0) Aspartate Amino Transf (AST/SGOT) 10 U/L (15-37) Alanine Aminotransferase (ALT/SGPT) 12 U/L (14-59) Alkaline Phosphatase 142 U/L (46-116) Total Protein 6.8 g/dL (6.4-8.2) Albumin 2.9 g/dL (3.4-5.0) Albumin/Globulin Ratio 0.7 (1.0-1.7) Lipase 98 U/L (73-393) Acetone Level Sm pos (NEG) O2 Saturation 97 % (92-99) Arterial Blood pH 7.28 (7.35-7.45) Arterial Blood pCO2 at Patient Temp 20 mmHg (35-46) Arterial Blood pO2 at Patient Temp 109 mmHg (65-108) Arterial Blood HCO3 9 mmol/L (21-28) Arterial Blood Base Excess -16 mmol/L (-3-3) Test 09/23/19 13:46 09/23/19 14:49 09/23/19 15:45 09/23/19 15:55 Glucose (Fingerstick) 238 mg/dL (70-99) 263 mg/dL (70-99) 235 mg/dL (70-99) Sodium Level 136 mmol/L (136-145) Potassium Level 3.8 mmol/L (3.5-5.1) Chloride Level 100 mmol/L (98-107) Carbon Dioxide Level 16 mmol/L (21-32) Anion Gap 20 (6-14) Blood Urea Nitrogen 37 mg/dL (7-20) Creatinine 2.8 mg/dL (0.6-1.0) Estimated GFR (Cockcroft-Gault) 17.0 Glucose Level 269 mg/dL (70-99) Lactic Acid Level 1.5 mmol/L (0.4-2.0) Calcium Level 9.1 mg/dL (8.5-10.1) Phosphorus Level 2.3 mg/dL (2.6-4.7) Magnesium Level 2.1 mg/dL (1.8-2.4) Thyroid Stimulating Hormone (TSH) 1.723 uIU/mL (0.358-3.74) Test 09/23/19 17:01 09/23/19 18:04 09/23/19 19:10 09/23/19 20:12 Glucose (Fingerstick) 235 mg/dL (70-99) 214 mg/dL (70-99) 164 mg/dL (70-99) 147 mg/dL (70-99) Test 09/23/19 21:15 09/23/19 22:16 09/23/19 22:25 09/23/19 22:30 Glucose (Fingerstick) 120 mg/dL (70-99) 110 mg/dL (70-99) Urine Collection Type Unknown Urine Color Yellow Urine Clarity Clear Urine pH 5.5 Urine Specific [place] 1.015 Urine Protein Negative mg/dL (NEG-TRACE) Urine Glucose (UA) 250 mg/dL (NEG) Urine Ketones (Stick) 40 mg/dL (NEG) Urine Blood Negative (NEG) Urine Nitrite Negative (NEG) Urine Bilirubin Large (NEG) Urine Urobilinogen Dipstick 0.2 mg/dL (0.2 mg/dL) Urine Leukocyte Esterase Moderate (NEG) Urine RBC Occ /HPF (0-2) Urine WBC 11-20 /HPF (0-4) Urine Squamous Epithelial Cells Few /LPF Urine Bacteria Many /HPF (0-FEW) Urine Mucus Slight /LPF Sodium Level 139 mmol/L (136-145) Potassium Level 3.8 mmol/L (3.5-5.1) Chloride Level 104 mmol/L (98-107) Carbon Dioxide Level 21 mmol/L (21-32) Anion Gap 14 (6-14) Blood Urea Nitrogen 31 mg/dL (7-20) Creatinine 2.4 mg/dL (0.6-1.0) Estimated GFR (Cockcroft-Gault) 20.3 Glucose Level 107 mg/dL (70-99) Calcium Level 8.8 mg/dL (8.5-10.1) Phosphorus Level 2.0 mg/dL (2.6-4.7) Magnesium Level 2.2 mg/dL (1.8-2.4) Test 09/23/19 23:26 09/24/19 00:28 09/24/19 01:47 09/24/19 04:51 Glucose (Fingerstick) 95 mg/dL (70-99) 97 mg/dL (70-99) 91 mg/dL (70-99) 134 mg/dL (70-99) Test 09/24/19 05:45 09/24/19 06:30 09/24/19 08:25 White Blood Count 5.1 x10^3/uL (4.0-11.0) Red Blood Count 3.10 x10^6/uL (3.50-5.40) Hemoglobin 9.4 g/dL (12.0-15.5) Hematocrit 28.3 % (36.0-47.0) Mean Corpuscular Volume 91 fL (79-100) Mean Corpuscular Hemoglobin 30 pg (25-35) Mean Corpuscular Hemoglobin Concent 33 g/dL (31-37) Red Cell Distribution Width 15.1 % (11.5-14.5) Platelet Count 233 x10^3/uL (140-400) Neutrophils (%) (Auto) 77 % (31-73) Lymphocytes (%) (Auto) 7 % (24-48) Monocytes (%) (Auto) 12 % (0-9) Eosinophils (%) (Auto) 3 % (0-3) Basophils (%) (Auto) 1 % (0-3) Neutrophils # (Auto) 4.0 x10^3/uL (1.8-7.7) Lymphocytes # (Auto) 0.4 x10^3/uL (1.0-4.8) Monocytes # (Auto) 0.6 x10^3/uL (0.0-1.1) Eosinophils # (Auto) 0.1 x10^3/uL (0.0-0.7) Basophils # (Auto) 0.0 x10^3/uL (0.0-0.2) Sodium Level 140 mmol/L (136-145) Potassium Level 4.0 mmol/L (3.5-5.1) Chloride Level 108 mmol/L (98-107) Carbon Dioxide Level 20 mmol/L (21-32) Anion Gap 12 (6-14) Blood Urea Nitrogen 24 mg/dL (7-20) Creatinine 2.0 mg/dL (0.6-1.0) Estimated GFR (Cockcroft-Gault) 25.1 Glucose Level 143 mg/dL (70-99) Calcium Level 8.0 mg/dL (8.5-10.1) Phosphorus Level 3.2 mg/dL (2.6-4.7) Magnesium Level 1.9 mg/dL (1.8-2.4) Glucose (Fingerstick) 137 mg/dL (70-99) 188 mg/dL (70-99) Laboratory Tests Test 09/23/19 11:15 09/23/19 11:27 09/23/19 12:05 09/23/19 12:33 Glucose (Fingerstick) 361 mg/dL (70-99) 354 mg/dL (70-99) White Blood Count 8.1 x10^3/uL (4.0-11.0) Red Blood Count 3.33 x10^6/uL (3.50-5.40) Hemoglobin 10.1 g/dL (12.0-15.5) Hematocrit 31.1 % (36.0-47.0) Mean Corpuscular Volume 93 fL (79-100) Mean Corpuscular Hemoglobin 30 pg (25-35) Mean Corpuscular Hemoglobin Concent 33 g/dL (31-37) Red Cell Distribution Width 14.9 % (11.5-14.5) Platelet Count 278 x10^3/uL (140-400) Neutrophils (%) (Auto) 85 % (31-73) Lymphocytes (%) (Auto) 5 % (24-48) Monocytes (%) (Auto) 9 % (0-9) Eosinophils (%) (Auto) 0 % (0-3) Basophils (%) (Auto) 1 % (0-3) Neutrophils # (Auto) 6.9 x10^3/uL (1.8-7.7) Lymphocytes # (Auto) 0.4 x10^3/uL (1.0-4.8) Monocytes # (Auto) 0.7 x10^3/uL (0.0-1.1) Eosinophils # (Auto) 0.0 x10^3/uL (0.0-0.7) Basophils # (Auto) 0.1 x10^3/uL (0.0-0.2) Segmented Neutrophils % 87 % (35-66) Lymphocytes % 8 % (24-48) Monocytes % 5 % (0-10) Platelet Estimate Adequate (ADEQUATE) Platelet Clumps, EDTA Present Large Platelets Present Sodium Level 134 mmol/L (136-145) Potassium Level 4.0 mmol/L (3.5-5.1) Chloride Level 97 mmol/L (98-107) Carbon Dioxide Level 11 mmol/L (21-32) Anion Gap 26 (6-14) Blood Urea Nitrogen 38 mg/dL (7-20) Creatinine 2.9 mg/dL (0.6-1.0) Estimated GFR (Cockcroft-Gault) 16.3 BUN/Creatinine Ratio 13 (6-20) Glucose Level 371 mg/dL (70-99) Hemoglobin A1c 6.7 % (4.8-5.6) Calcium Level 9.2 mg/dL (8.5-10.1) Magnesium Level 1.5 mg/dL (1.8-2.4) Total Bilirubin 0.5 mg/dL (0.2-1.0) Aspartate Amino Transf (AST/SGOT) 10 U/L (15-37) Alanine Aminotransferase (ALT/SGPT) 12 U/L (14-59) Alkaline Phosphatase 142 U/L (46-116) Total Protein 6.8 g/dL (6.4-8.2) Albumin 2.9 g/dL (3.4-5.0) Albumin/Globulin Ratio 0.7 (1.0-1.7) Lipase 98 U/L (73-393) Acetone Level Sm pos (NEG) O2 Saturation 97 % (92-99) Arterial Blood pH 7.28 (7.35-7.45) Arterial Blood pCO2 at Patient Temp 20 mmHg (35-46) Arterial Blood pO2 at Patient Temp 109 mmHg (65-108) Arterial Blood HCO3 9 mmol/L (21-28) Arterial Blood Base Excess -16 mmol/L (-3-3) Test 09/23/19 13:46 09/23/19 14:49 09/23/19 15:45 09/23/19 15:55 Glucose (Fingerstick) 238 mg/dL (70-99) 263 mg/dL (70-99) 235 mg/dL (70-99) Sodium Level 136 mmol/L (136-145) Potassium Level 3.8 mmol/L (3.5-5.1) Chloride Level 100 mmol/L (98-107) Carbon Dioxide Level 16 mmol/L (21-32) Anion Gap 20 (6-14) Blood Urea Nitrogen 37 mg/dL (7-20) Creatinine 2.8 mg/dL (0.6-1.0) Estimated GFR (Cockcroft-Gault) 17.0 Glucose Level 269 mg/dL (70-99) Lactic Acid Level 1.5 mmol/L (0.4-2.0) Calcium Level 9.1 mg/dL (8.5-10.1) Phosphorus Level 2.3 mg/dL (2.6-4.7) Magnesium Level 2.1 mg/dL (1.8-2.4) Thyroid Stimulating Hormone (TSH) 1.723 uIU/mL (0.358-3.74) Test 09/23/19 17:01 09/23/19 18:04 09/23/19 19:10 09/23/19 20:12 Glucose (Fingerstick) 235 mg/dL (70-99) 214 mg/dL (70-99) 164 mg/dL (70-99) 147 mg/dL (70-99) Test 09/23/19 21:15 09/23/19 22:16 09/23/19 22:25 09/23/19 22:30 Glucose (Fingerstick) 120 mg/dL (70-99) 110 mg/dL (70-99) Urine Collection Type Unknown Urine Color Yellow Urine Clarity Clear Urine pH 5.5 Urine Specific [place] 1.015 Urine Protein Negative mg/dL (NEG-TRACE) Urine Glucose (UA) 250 mg/dL (NEG) Urine Ketones (Stick) 40 mg/dL (NEG) Urine Blood Negative (NEG) Urine Nitrite Negative (NEG) Urine Bilirubin Large (NEG) Urine Urobilinogen Dipstick 0.2 mg/dL (0.2 mg/dL) Urine Leukocyte Esterase Moderate (NEG) Urine RBC Occ /HPF (0-2) Urine WBC 11-20 /HPF (0-4) Urine Squamous Epithelial Cells Few /LPF Urine Bacteria Many /HPF (0-FEW) Urine Mucus Slight /LPF Sodium Level 139 mmol/L (136-145) Potassium Level 3.8 mmol/L (3.5-5.1) Chloride Level 104 mmol/L (98-107) Carbon Dioxide Level 21 mmol/L (21-32) Anion Gap 14 (6-14) Blood Urea Nitrogen 31 mg/dL (7-20) Creatinine 2.4 mg/dL (0.6-1.0) Estimated GFR (Cockcroft-Gault) 20.3 Glucose Level 107 mg/dL (70-99) Calcium Level 8.8 mg/dL (8.5-10.1) Phosphorus Level 2.0 mg/dL (2.6-4.7) Magnesium Level 2.2 mg/dL (1.8-2.4) Test 09/23/19 23:26 09/24/19 00:28 09/24/19 01:47 09/24/19 04:51 Glucose (Fingerstick) 95 mg/dL (70-99) 97 mg/dL (70-99) 91 mg/dL (70-99) 134 mg/dL (70-99) Test 09/24/19 05:45 09/24/19 06:30 09/24/19 08:25 White Blood Count 5.1 x10^3/uL (4.0-11.0) Red Blood Count 3.10 x10^6/uL (3.50-5.40) Hemoglobin 9.4 g/dL (12.0-15.5) Hematocrit 28.3 % (36.0-47.0) Mean Corpuscular Volume 91 fL (79-100) Mean Corpuscular Hemoglobin 30 pg (25-35) Mean Corpuscular Hemoglobin Concent 33 g/dL (31-37) Red Cell Distribution Width 15.1 % (11.5-14.5) Platelet Count 233 x10^3/uL (140-400) Neutrophils (%) (Auto) 77 % (31-73) Lymphocytes (%) (Auto) 7 % (24-48) Monocytes (%) (Auto) 12 % (0-9) Eosinophils (%) (Auto) 3 % (0-3) Basophils (%) (Auto) 1 % (0-3) Neutrophils # (Auto) 4.0 x10^3/uL (1.8-7.7) Lymphocytes # (Auto) 0.4 x10^3/uL (1.0-4.8) Monocytes # (Auto) 0.6 x10^3/uL (0.0-1.1) Eosinophils # (Auto) 0.1 x10^3/uL (0.0-0.7) Basophils # (Auto) 0.0 x10^3/uL (0.0-0.2) Sodium Level 140 mmol/L (136-145) Potassium Level 4.0 mmol/L (3.5-5.1) Chloride Level 108 mmol/L (98-107) Carbon Dioxide Level 20 mmol/L (21-32) Anion Gap 12 (6-14) Blood Urea Nitrogen 24 mg/dL (7-20) Creatinine 2.0 mg/dL (0.6-1.0) Estimated GFR (Cockcroft-Gault) 25.1 Glucose Level 143 mg/dL (70-99) Calcium Level 8.0 mg/dL (8.5-10.1) Phosphorus Level 3.2 mg/dL (2.6-4.7) Magnesium Level 1.9 mg/dL (1.8-2.4) Glucose (Fingerstick) 137 mg/dL (70-99) 188 mg/dL (70-99) Medications Current Medications Sodium Chloride 1,000 ml @ 1,000 mls/hr Q1H IV Last administered on 09/23/19at 11:23; Start 09/23/19 at 11:01; Stop 09/23/19 at 12:00; Status DC Ondansetron HCl (Zofran) 4 mg 1X ONCE IV Last administered on 09/23/19at 11:24; Start 09/23/19 at 11:15; Stop 09/23/19 at 11:16; Status DC Insulin Human Regular 150 ml @ 0 mls/hr 1X ONCE IV Last administered on 09/23/19at 12:42; Start 09/23/19 at 12:00; Stop 09/23/19 at 23:58; Status DC Ondansetron HCl (Zofran) 4 mg PRN Q8HRS PRN IV NAUSEA/VOMITING; Start 09/23/19 at 12:30 Insulin Human Regular 150 unit/ Sodium Chloride 151.5 ml @ 0 mls/hr CONT PRN PRN IV PER PROTOCOL Last administered on 09/23/19 22:53; Start 09/23/19 at 14:00; Stop 09/23/19 at 23:58; Status DC Magnesium Sulfate 100 ml @ 25 mls/hr PRN DAILY PRN IV For MAG++ level of 1.8 or Less Last administered on 09/23/19at 14:00; Start 09/23/19 at 14:00 Dextrose/Sodium Chloride 1,000 ml @ 250 mls/hr Q4H IV Last administered on 09/23/19 22:31; Start 09/23/19 at 14:00; Stop 09/23/19 at 23:58; Status DC Amlodipine Besylate (Norvasc) 10 mg DAILY PO Last administered on 09/24/19 08:29; Start 09/24/19 at 09:00 Aspirin (Children'S Aspirin) 81 mg DAILY PO Last administered on 09/24/19 08:28; Start 09/24/19 at 09:00 Bupropion HCl (Wellbutrin Xl) 150 mg DAILY PO Last administered on 09/24/19 08:28; Start 09/24/19 at 09:00 Vitamin D (Vitamin D3) 1,000 unit DAILY PO Last administered on 09/24/19 08:28; Start 09/24/19 at 09:00 Clonidine HCl (Catapres) 0.1 mg BID PO Last administered on 09/24/19 08:29; Start 09/23/19 at 21:00 Folic Acid (Folic Acid) 1 mg DAILY PO Last administered on 09/24/19 08:28; Start 09/24/19 at 09:00 Acetaminophen/ Hydrocodone Bitart (Lortab 5/325) 1 tab Q6HRS PO ; Start 09/23/19 at 18:00 Metoprolol Tartrate (Lopressor) 50 mg BID PO Last administered on 09/24/19 08:29; Start 09/23/19 at 21:00 Ondansetron HCl (Zofran Odt) 4 mg PRN BID PRN PO NAUSEA/VOMITING; Start 09/23/19 at 15:45 Sertraline HCl (Zoloft) 200 mg DAILY PO Last administered on 12/16/19at 08:28; Start 09/24/19 at 09:00 Heparin Sodium (Porcine) (Heparin Sodium) 5,000 unit Q8HRS SQ Last administered on 09/24/19at 06:04; Start 09/23/19 at 22:00 Trazodone HCl (Desyrel) 50 mg PRN QHS PRN PO INSOMNIA; Start 09/23/19 at 21:00 Bisacodyl (Dulcolax Supp) 10 mg PRN DAILY PRN CO CONSTIPATION; Start 09/23/19 at 16:00 Acetaminophen (Tylenol Supp) 650 mg PRN Q6HRS PRN CO MILD PAIN / TEMP; Start 09/23/19 at 16:00 Potassium Chloride/Water 100 ml @ 100 mls/hr PRN Q1HR PRN IV SEE COMMENTS; Start 09/23/19 at 16:45 Sodium Phosphate 20 mmol/Dextrose 256.6667 ml @ 62.5 mls/hr 1X PRN PRN IV SEE COMMENTS; Start 09/23/19 at 16:45; Status Cancel Sodium Phosphate 20 mmol/Dextrose 256.6667 ml @ 62.5 mls/hr 1X ONCE IV Last administered on 09/23/19at 17:24; Start 09/23/19 at 17:00; Stop 09/23/19 at 21:06; Status DC Potassium Chloride/Water 100 ml @ 100 mls/hr Q1HR IV Last administered on 09/23/19at 21:01; Start 09/23/19 at 17:00; Stop 09/23/19 at 20:59; Status DC Levothyroxine Sodium (Synthroid) 125 mcg DAILY06 PO Last administered on 09/24/19at 05:59; Start 09/24/19 at 06:00 Insulin Glargine (Lantus Syringe) 16 unit QHS SQ Last administered on at 00:12; Start 09/24/19 at 00:00 Insulin Human Lispro (HumaLOG) 0-7 UNITS Q4HRS SQ Last administered on 09/24/19at 08:32; Start 09/24/19 at 00:00 Dextrose (Dextrose 50%-Water Syringe) 12.5 gm PRN Q15MIN PRN IV SEE COMMENTS; Start 09/24/19 at 00:00 Dextrose (Iv Dextrose 5%) 250 ml PRN Q15MIN PRN IV SEE COMMENTS; Start 09/24/19 at 00:00 Insulin Human Lispro (HumaLOG) 3 units TIDAC SQ Last administered on 09/24/19at 08:31; Start 09/24/19 at 07:30 Potassium Phosphate 15 mmol/ Sodium Chloride 255 ml @ 127.5 mls/ hr 1X ONCE IV Last administered on 09/24/19at 00:15; Start 09/24/19 at 00:15; Stop 09/24/19 at 02:14; Status DC Docusate Sodium (Colace) 100 mg PRN DAILY PRN PO CONSTIPATION; Start 09/24/19 at 09:00 Active Scripts Active Reported Senna (Sennosides) 8.8 Mg/5 Ml Syrup 8.8 Mg PO CONSTIPATION Docusate Sodium 100 Mg Capsule 1 Cap PO BID 7 Days Calcium (Calcium Carbonate) 500 Mg Tab.chew 500 Mg PO HS Oxycontin (Oxycodone HCl) 20 Mg Tab.er.12h 1 Tab PO BID MDD 2 Tablet(s) 30 Days Levothyroxine Sodium 175 Mcg Tablet 1 Tab PO DAILY Levemir (Insulin Detemir) 100 Unit/1 Ml Vial 1 Unit SQ HS Hydrocodone-Acetamin 5-325 mg (Hydrocodone/Acetaminophen) 1 Each Tablet 1 Each PO Q6HRS Novolog Flexpen (Insulin Aspart) 100 Unit/1 Ml Insuln.pen 1 Unit SQ PRN SSI Blood Sugar Level Breakfast Lunch Dinner HS > 180 to 200 1 1 1 0 > 200 to 250 2 2 2 0 > 250 to 300 3 3 3 1 > 300 to 400 4 4 4 2 > 400 5 5 5 3 Food Carbs is whatever the total carbs are divided by 8=amount of units to be added to SSI and plus 10 units for the steriods to be given. exaple: SSI + Carbs + Steriod = total units of insulin to be given daily Wellbutrin Xl (Bupropion Hcl) 150 Mg Tab.er.24h 150 Mg PO DAILY Amlodipine Besylate 10 Mg Tablet 10 Mg PO DAILY Zofran Odt (Ondansetron) 8 Mg Tab.rapdis 8 Mg PO BID PRN Clonidine Hcl 0.1 Mg Tablet 0.1 Mg PO BID if b/p over 145. Folic Acid 1 Mg Tablet 1 Mg PO DAILY Vitamin D (Cholecalciferol (Vitamin D3)) 1,000 Unit Tablet 1,000 Unit PO DAILY Metoprolol Tartrate 50 Mg Tablet 1 Tab PO BID Sertraline Hcl 100 Mg Tablet 100 Mg PO 2TABS PO DAILY Aspirin 81 Mg Tab.chew 1 Tab PO DAILY Vitals/I & O Vital Sign - Last 24 Hours 09/23/19 09/23/19 09/23/19 09/23/19 11:01 12:10 13:30 14:00 Temp 98.4 97.8 98.4 97.8 Pulse 98 98 92 93 Resp 15 18 20 20 B/P (MAP) 152/78 (102) 171/92 (118) 170/56 (94) 163/67 (99) Pulse Ox 99 97 100 100 O2 Delivery Room Air Room Air Room Air 09/23/19 09/23/19 09/23/19 09/23/19 14:30 15:00 15:30 16:00 Pulse 92 93 Resp 20 20 20 20 B/P (MAP) 168/87 (114) 160/63 (95) Pulse Ox 100 100 100 100 O2 Delivery Room Air Room Air Room Air Room Air 09/23/19 09/23/19 09/23/19 09/23/19 16:21 16:30 17:30 18:30 Pulse 90 92 92 Resp 20 20 20 18 B/P (MAP) 156/57 (90) 167/66 (99) 164/58 (93) Pulse Ox 100 100 100 100 O2 Delivery Room Air Room Air Room Air Room Air 09/23/19 09/23/19 09/23/19 09/23/19 19:00 20:00 21:00 21:40 Temp 98.2 98.2 Pulse 97 97 79 99 Resp 15 20 20 B/P (MAP) 162/75 (104) 135/85 (102) 165/78 (107) 163/59 Pulse Ox 100 99 99 O2 Delivery Room Air Room Air Room Air 09/23/19 09/23/19 09/23/19 09/23/19 21:41 22:00 23:00 23:59 Temp 98.5 98.5 Pulse 99 79 79 81 Resp 20 20 20 B/P (MAP) 163/59 165/78 (107) 141/76 (97) 146/71 (96) Pulse Ox 99 98 98 O2 Delivery Room Air Room Air Room Air 09/24/19 09/24/19 09/24/19 09/24/19 00:00 01:00 02:00 03:00 Pulse 83 93 81 Resp 20 20 20 B/P (MAP) 135/50 (78) 145/69 (94) 160/67 (98) Pulse Ox 98 98 98 98 O2 Delivery Room Air Room Air Room Air 09/24/19 09/24/19 09/24/19 09/24/19 04:00 05:00 06:00 08:29 Temp 98.6 98.6 Pulse 81 80 81 78 Resp 20 20 20 B/P (MAP) 135/65 (88) 153/65 (94) 166/85 (112) 181/72 Pulse Ox 98 98 98 O2 Delivery Room Air Room Air Room Air 09/24/19 09/24/19 08:29 08:29 Pulse 78 78 B/P (MAP) 181/72 181/72 Intake and Output 09/23/19 09/23/19 09/24/19 15:00 23:00 07:00 Intake Total 1349.3 ml 0 ml Output Total 850 ml 525 ml Balance 499.3 ml -525 ml MELANY BANKS MD Sep 24, 2019 09:01
--- NOTE | 2019-09-24 10:24 | NUR ---
SS following for discharge planning. SS reviewed pt chart. Pt is from home with spouse and is currently on room air. SS will continue to follow for discharge planning.
--- NOTE | 2019-09-24 11:47 | RAD ---
EXAM: Head CT without contrast. HISTORY: Confusion. TECHNIQUE: Computed tomographic images of the head were obtained without contrast. *One or more of the following individualized dose reduction techniques were utilized for this examination: 1. Automated exposure control. 2. Adjustment of the mA and/or kV according to patient size. 3. Use of iterative reconstruction technique. COMPARISON: Brain MRI dated 01/04/2018. FINDINGS: There is hypodensity within the posterior left frontal lobe at the vertex, corresponding with the site of a brain metastasis and surrounding edema on the prior MRI. There are additional subtle areas of hypodensity within the cerebral white matter which are nonspecific and likely due to chronic small vessel disease. There is cerebral volume loss. There is no hemorrhage. There is no mass effect or midline shift. The visualized portions the orbits compared to the sinuses and mastoid air cells are unremarkable. No suspicious calvarial lesion is seen. IMPRESSION: 1. Decreased attenuation within the posterior left frontal lobe at the vertex, corresponding with the site of a cerebral metastasis and surrounding edema. This is better assessed with a contrast-enhanced MRI. 2. Decreased aeration within the cerebral white matter, a nonspecific finding which can be seen with chronic small vessel disease. Note is made that MRI is more sensitive for acute infarction. 3. Cerebral volume loss. Electronically signed by: Tracie Riggs MD (09/24/2019 11:44 AM) [place] [id number]
--- NOTE | 2019-09-24 12:00 | NUR ---
Pt refused pain medications at noon. No pain upon assessment.
--- NOTE | 2019-09-24 15:00 | CONS ---
DATE OF CONSULTATION: 09/24/2019 MEDICAL ONCOLOGY CONSULTATION REPORT REQUESTING PHYSICIAN: Saroj Le MD REASON FOR CONSULTATION: Stage 4 lung cancer, on Opdivo, now admitted for diabetic ketoacidosis. HISTORY OF PRESENT ILLNESS: The patient is a 63-year-old female who presented with left-sided pleural effusion in 2014 and she underwent thoracentesis on 09/12/2015 and cytology revealed adenocarcinoma. She was started on palliative chemotherapy with carboplatin, Alimta and Avastin on 10/08/2015. She had a left lower lobe lung nodule measuring 2.2 cm, which was thought to be the primary lung cancer. CT scan on 02/24/2017 revealed large pericardial effusion. She underwent pericardial window and cytology was negative for malignancy. PET scan on 03/17/2017 revealed T9 lesion, which could be a site of active osseous metastasis. She was started on Opdivo on 03/18/2017 and she had responded very well for Opdivo. She has not had any disease progression. Her most recent PET scan on 07/16/2019 revealed decreased metabolic activity in the left lower lobe lung nodule and L3 osseous metastasis. Stable adrenal gland metastasis. Her most recent treatment was given on 09/18/2019. She presented to [facility] on 09/23/2019 with complaints of worsening hyperglycemia along with nausea, vomiting. She was noted to have a glucose of 371 with ketones in the blood and diagnosed with diabetic ketoacidosis. I was asked to see the patient for further management of lung cancer. PAST MEDICAL HISTORY: Coronary artery disease, hypertension, anxiety, low back pain, chronic renal insufficiency, diabetes mellitus. FAMILY HISTORY: Positive for uterine cancer, lung cancer and bladder cancer. SOCIAL HISTORY: She quit smoking in 2014. REVIEW OF SYSTEMS: A 12-point review of system was performed. Pertinent positives are mentioned in the history of present illness. Rest of the system review is negative. PHYSICAL EXAMINATION: GENERAL APPEARANCE: The patient is a 63-year-old female who is in no acute cardiorespiratory distress. VITAL SIGNS: Blood pressure 137/59, temperature 98.1. HEENT: Atraumatic, normocephalic. EYES: No icterus. NECK: Supple. CHEST: Bilaterally symmetrical. HEART: S1, S2 normal. ABDOMEN: Soft, nontender. CENTRAL NERVOUS SYSTEM: No focal deficits. LYMPHATICS: No lymphadenopathy. SKIN: No rashes. PSYCHOLOGIC: Mood and affect are appropriate. LABORATORY DATA: WBC 5.1, hemoglobin 9.4, platelet count 233. Creatinine is 2.0. IMPRESSION AND PLAN: 1. Stage 4 lung cancer involving the left lower lobe of the lung with left-sided malignant pleural effusion, pericardial effusion, bone metastasis, adrenal gland metastasis. She is on immunotherapy with Opdivo and her most recent treatment was on 09/18/2019. She is now admitted with diabetic ketoacidosis. This could be related to uncontrolled diabetes versus Opdivo. I have recommended to hold Opdivo for now and I will reevaluate in 1 month. 2. Diabetic ketoacidosis. Continue management per Dr. Saroj Le. 3. Bone metastasis. Continue supportive care. 4. History of pericardial effusion, status post pericardiocentesis on 10/21/2018. Cytology was negative for malignancy. However, clinically it is suggestive of malignancy. 5. Brain metastasis diagnosed on 11/11/2017, status post stereotactic radiation therapy to the brain from 11/21/2017 to 12/06/2017. KOSTAS SEARS MD DR: SUZE/kaz JOB#: [id number] / [id number]
[2019-09-24] MEDS: ONDANSETRON ODT 4 MG TAB.RAPDIS. PO PRN (17:04)
[2019-09-24] MEDS ORDERED: ACETAMINOPHEN 325 MG TABLET. PO PRN (18:45)
[2019-09-25 04:00] VITALS: BP 159/70
[2019-09-25] MEDS: INSULIN LISPRO 300 UNITS/3 ML VIAL. SQ SCH ×8 (04:00→17:00)
[2019-09-25] MEDS: LEVOTHYROXINE 125 MCG TABLET PO SCH (05:59)
[2019-09-25] MEDS: HYDROcodone/APAP 5/325MG 1 TAB TABLET PO SCH ×4 (06:00→18:00)
[2019-09-25] MEDS: HEPARIN for SUB-Q USE 5,000 UNIT/ML VIAL. SQ SCH (06:06)
[2019-09-25 07:00] VITALS: BP 170/68
[2019-09-25] MEDS ORDERED: IV NORMAL SALINE 1000ML BAG 1,000 ML IV SCH (09:15)
[2019-09-25] MEDS ORDERED: DEXTROSE 50% 25 GM / 50ML DISP.SYRIN. IV PRN (09:15)
[2019-09-25] MEDS ORDERED: IV DEXTROSE 5% 250 ML BAG. IV PRN (09:15)
[2019-09-25] MEDS: cloNIDine HCL 0.1 MG TABLET PO SCH ×2 (09:57→21:31)
[2019-09-25] MEDS: FOLIC ACID 1 MG TABLET. PO SCH (09:57)
[2019-09-25] MEDS: SERTRALINE 50 MG TABLET. PO SCH (09:57)
[2019-09-25] MEDS: CHOLECALCIFEROL (VITAMIN D3) 1,000 UNIT TABLET PO SCH (09:57)
[2019-09-25] MEDS: buPROPion XL 150 MG TAB.ER.24H. PO SCH (09:57)
[2019-09-25] MEDS: ASPIRIN CHEWABLE 81 MG TABLET. PO SCH (09:57)
[2019-09-25] MEDS: amLODIPine BESYLATE 10 MG TABLET PO SCH (09:58)
[2019-09-25] MEDS: METOPROLOL TART IMMED RELEASE 50 MG TABLET. PO SCH ×2 (09:58→21:32)
[2019-09-25] MEDS ORDERED: INSU100V8 SQ (10:08)
[2019-09-25] MEDS ORDERED: INSU100I11 SQ (10:08)
--- NOTE | 2019-09-25 10:11 | PDOC3 ---
Discharge Summary Visit Information Date of Admission: Sep 23, 2019 Date of Discharge: Sep 25, 2019 Admitting Diagnosis Comment: NENA, dka/HONK resolved LUng CA stage 4 on chemo OPdiva COgnitive delay bs begiining dementia MEt enceph, no coma Final Diagnosis Problems Medical Problems: (1) Ydvhp-wn-zolgrhq kidney injury Status: Acute (2) Diabetic ketoacidosis Status: Acute Brief Hospital Course Allergies Allergies Coded Allergies Type Severity Reaction Last Updated Verified No Known Drug Allergies 02/25/17 No Vital Signs Vital Signs Date Time Temp Pulse Resp B/P (MAP) Pulse Ox O2 Delivery O2 Flow Rate FiO2 09/25/19 07:00 98.1 75 18 170/68 (102) 97 Room Air 98.1 Lab Results Laboratory Tests Test 09/23/19 11:15 09/23/19 11:27 09/23/19 12:05 09/23/19 12:33 Glucose (Fingerstick) 361 mg/dL (70-99) 354 mg/dL (70-99) White Blood Count 8.1 x10^3/uL (4.0-11.0) Red Blood Count 3.33 x10^6/uL (3.50-5.40) Hemoglobin 10.1 g/dL (12.0-15.5) Hematocrit 31.1 % (36.0-47.0) Mean Corpuscular Volume 93 fL (79-100) Mean Corpuscular Hemoglobin 30 pg (25-35) Mean Corpuscular Hemoglobin Concent 33 g/dL (31-37) Red Cell Distribution Width 14.9 % (11.5-14.5) Platelet Count 278 x10^3/uL (140-400) Neutrophils (%) (Auto) 85 % (31-73) Lymphocytes (%) (Auto) 5 % (24-48) Monocytes (%) (Auto) 9 % (0-9) Eosinophils (%) (Auto) 0 % (0-3) Basophils (%) (Auto) 1 % (0-3) Neutrophils # (Auto) 6.9 x10^3/uL (1.8-7.7) Lymphocytes # (Auto) 0.4 x10^3/uL (1.0-4.8) Monocytes # (Auto) 0.7 x10^3/uL (0.0-1.1) Eosinophils # (Auto) 0.0 x10^3/uL (0.0-0.7) Basophils # (Auto) 0.1 x10^3/uL (0.0-0.2) Segmented Neutrophils % 87 % (35-66) Lymphocytes % 8 % (24-48) Monocytes % 5 % (0-10) Platelet Estimate Adequate (ADEQUATE) Platelet Clumps, EDTA Present Large Platelets Present Sodium Level 134 mmol/L (136-145) Potassium Level 4.0 mmol/L (3.5-5.1) Chloride Level 97 mmol/L (98-107) Carbon Dioxide Level 11 mmol/L (21-32) Anion Gap 26 (6-14) Blood Urea Nitrogen 38 mg/dL (7-20) Creatinine 2.9 mg/dL (0.6-1.0) Estimated GFR (Cockcroft-Gault) 16.3 BUN/Creatinine Ratio 13 (6-20) Glucose Level 371 mg/dL (70-99) Hemoglobin A1c 6.7 % (4.8-5.6) Calcium Level 9.2 mg/dL (8.5-10.1) Magnesium Level 1.5 mg/dL (1.8-2.4) Total Bilirubin 0.5 mg/dL (0.2-1.0) Aspartate Amino Transf (AST/SGOT) 10 U/L (15-37) Alanine Aminotransferase (ALT/SGPT) 12 U/L (14-59) Alkaline Phosphatase 142 U/L (46-116) Total Protein 6.8 g/dL (6.4-8.2) Albumin 2.9 g/dL (3.4-5.0) Albumin/Globulin Ratio 0.7 (1.0-1.7) Lipase 98 U/L (73-393) Acetone Level Sm pos (NEG) O2 Saturation 97 % (92-99) Arterial Blood pH 7.28 (7.35-7.45) Arterial Blood pCO2 at Patient Temp 20 mmHg (35-46) Arterial Blood pO2 at Patient Temp 109 mmHg (65-108) Arterial Blood HCO3 9 mmol/L (21-28) Arterial Blood Base Excess -16 mmol/L (-3-3) Test 09/23/19 13:46 09/23/19 14:49 09/23/19 15:45 12/15/19 15:55 Glucose (Fingerstick) 238 mg/dL (70-99) 263 mg/dL (70-99) 235 mg/dL (70-99) Sodium Level 136 mmol/L (136-145) Potassium Level 3.8 mmol/L (3.5-5.1) Chloride Level 100 mmol/L (98-107) Carbon Dioxide Level 16 mmol/L (21-32) Anion Gap 20 (6-14) Blood Urea Nitrogen 37 mg/dL (7-20) Creatinine 2.8 mg/dL (0.6-1.0) Estimated GFR (Cockcroft-Gault) 17.0 Glucose Level 269 mg/dL (70-99) Lactic Acid Level 1.5 mmol/L (0.4-2.0) Calcium Level 9.1 mg/dL (8.5-10.1) Phosphorus Level 2.3 mg/dL (2.6-4.7) Magnesium Level 2.1 mg/dL (1.8-2.4) Thyroid Stimulating Hormone (TSH) 1.723 uIU/mL (0.358-3.74) Test 09/23/19 17:01 09/23/19 18:04 09/23/19 19:10 09/23/19 20:12 Glucose (Fingerstick) 235 mg/dL (70-99) 214 mg/dL (70-99) 164 mg/dL (70-99) 147 mg/dL (70-99) Test 09/23/19 21:15 09/23/19 22:16 09/23/19 22:25 09/23/19 22:30 Glucose (Fingerstick) 120 mg/dL (70-99) 110 mg/dL (70-99) Urine Collection Type Unknown Urine Color Yellow Urine Clarity Clear Urine pH 5.5 Urine Specific [place] 1.015 Urine Protein Negative mg/dL (NEG-TRACE) Urine Glucose (UA) 250 mg/dL (NEG) Urine Ketones (Stick) 40 mg/dL (NEG) Urine Blood Negative (NEG) Urine Nitrite Negative (NEG) Urine Bilirubin Large (NEG) Urine Urobilinogen Dipstick 0.2 mg/dL (0.2 mg/dL) Urine Leukocyte Esterase Moderate (NEG) Urine RBC Occ /HPF (0-2) Urine WBC 11-20 /HPF (0-4) Urine Squamous Epithelial Cells Few /LPF Urine Bacteria Many /HPF (0-FEW) Urine Mucus Slight /LPF Sodium Level 139 mmol/L (136-145) Potassium Level 3.8 mmol/L (3.5-5.1) Chloride Level 104 mmol/L (98-107) Carbon Dioxide Level 21 mmol/L (21-32) Anion Gap 14 (6-14) Blood Urea Nitrogen 31 mg/dL (7-20) Creatinine 2.4 mg/dL (0.6-1.0) Estimated GFR (Cockcroft-Gault) 20.3 Glucose Level 107 mg/dL (70-99) Calcium Level 8.8 mg/dL (8.5-10.1) Phosphorus Level 2.0 mg/dL (2.6-4.7) Magnesium Level 2.2 mg/dL (1.8-2.4) Test 09/23/19 23:26 09/24/19 00:28 09/24/19 01:47 09/24/19 04:51 Glucose (Fingerstick) 95 mg/dL (70-99) 97 mg/dL (70-99) 91 mg/dL (70-99) 134 mg/dL (70-99) Test 09/24/19 05:45 09/24/19 06:30 09/24/19 08:25 09/24/19 12:47 White Blood Count 5.1 x10^3/uL (4.0-11.0) Red Blood Count 3.10 x10^6/uL (3.50-5.40) Hemoglobin 9.4 g/dL (12.0-15.5) Hematocrit 28.3 % (36.0-47.0) Mean Corpuscular Volume 91 fL (79-100) Mean Corpuscular Hemoglobin 30 pg (25-35) Mean Corpuscular Hemoglobin Concent 33 g/dL (31-37) Red Cell Distribution Width 15.1 % (11.5-14.5) Platelet Count 233 x10^3/uL (140-400) Neutrophils (%) (Auto) 77 % (31-73) Lymphocytes (%) (Auto) 7 % (24-48) Monocytes (%) (Auto) 12 % (0-9) Eosinophils (%) (Auto) 3 % (0-3) Basophils (%) (Auto) 1 % (0-3) Neutrophils # (Auto) 4.0 x10^3/uL (1.8-7.7) Lymphocytes # (Auto) 0.4 x10^3/uL (1.0-4.8) Monocytes # (Auto) 0.6 x10^3/uL (0.0-1.1) Eosinophils # (Auto) 0.1 x10^3/uL (0.0-0.7) Basophils # (Auto) 0.0 x10^3/uL (0.0-0.2) Sodium Level 140 mmol/L (136-145) Potassium Level 4.0 mmol/L (3.5-5.1) Chloride Level 108 mmol/L (98-107) Carbon Dioxide Level 20 mmol/L (21-32) Anion Gap 12 (6-14) Blood Urea Nitrogen 24 mg/dL (7-20) Creatinine 2.0 mg/dL (0.6-1.0) Estimated GFR (Cockcroft-Gault) 25.1 Glucose Level 143 mg/dL (70-99) Calcium Level 8.0 mg/dL (8.5-10.1) Phosphorus Level 3.2 mg/dL (2.6-4.7) Magnesium Level 1.9 mg/dL (1.8-2.4) Glucose (Fingerstick) 137 mg/dL (70-99) 188 mg/dL (70-99) 110 mg/dL (70-99) Test 09/24/19 17:00 09/24/19 20:42 09/25/19 00:39 09/25/19 04:29 Glucose (Fingerstick) 166 mg/dL (70-99) 96 mg/dL (70-99) 119 mg/dL (70-99) 168 mg/dL (70-99) Test 09/25/19 09:48 Glucose (Fingerstick) 316 mg/dL (70-99) Laboratory Tests Test 09/24/19 12:47 09/24/19 17:00 09/24/19 20:42 09/25/19 00:39 Glucose (Fingerstick) 110 mg/dL (70-99) 166 mg/dL (70-99) 96 mg/dL (70-99) 119 mg/dL (70-99) Test 09/25/19 04:29 09/25/19 09:48 Glucose (Fingerstick) 168 mg/dL (70-99) 316 mg/dL (70-99) Brief Hospital Course Ms. Landeros is a 63 old came in in DKA vs HONK, managed by colleague in ICU, TRAnsferred to my care on the day im dcing her, Dc cardoza, NO PT needs seemingly. COlleague note mentions possible OPdiva causing her hONK< But she tells me she is on insulin at [facility] but cant tell me dose, SHe has no DM meds on file, COlleagus has started her on 3 TID with meals and 16 qhs which seems to be controlling her BS< so will dc her on that dose Consults; heme onc Proc; inuslin gt maybe in icu? Discharge Information Condition at Discharge: Improved, Stable Disposition/Orders: D/C to Home Scheduled Amlodipine Besylate (Amlodipine Besylate) 10 Mg Tablet, 10 MG PO DAILY for HTN, (Reported) Entered as Reported by: BAUTISTA STOKES on 11/22/17 0817 Last Action: Continued on 09/23/191527 by MELANY BANKS MD Aspirin (Aspirin) 81 Mg Tab.chew, 1 TAB PO DAILY for heart health, (Reported) Entered as Reported by: TAYLOR MURPHY on 09/12/15848 Last Action: Continued on 09/23/191527 by MELANY BANKS MD Bupropion Hcl (Wellbutrin Xl) 150 Mg Tab.er.24h, 150 MG PO DAILY for depression, (Reported) Entered as Reported by: BAUTISTA STOKES on 01/04/18 1424 Last Action: Continued on 09/23/191527 by MELANY BANKS MD Calcium Carbonate (Calcium) 500 Mg Tab.chew, 500 MG PO HS for bone health, (Repo rted) Entered as Reported by: BRENDA DEL REAL on 09/23/191847 Last Action: New Order on 09/23/191847 by BRENDA DEL REAL Cholecalciferol (Vitamin D3) (Vitamin D) 1,000 Unit Tablet, 1,000 UNIT PO DAILY, (Reported) Entered as Reported by: TAYLOR MURPHY on 09/12/15848 Last Action: Continued on 09/23/191527 by MELANY BANKS MD Clonidine Hcl (Clonidine Hcl) 0.1 Mg Tablet, 0.1 MG PO BID for HTN, (Reported) if b/p over 145. Entered as Reported by: Xavi Azar on 02/25/172132 Last Action: Continued on 09/23/191527 by MELANY BANKS MD Docusate Sodium (Docusate Sodium) 100 Mg Capsule, 1 CAP PO BID for constipation for 7 Days, #14 Ref 0 (Reported) Entered as Reported by: BRENDA DEL REAL on 09/23/191847 Last Action: New Order on 09/23/191847 by BRENDA DEL REAL Folic Acid (Folic Acid) 1 Mg Tablet, 1 MG PO DAILY, (Reported) Entered as Reported by: SALAS GANT on 02/04/16 0615 Last Action: Continued on 09/23/191527 by MELANY BANKS MD Hydrocodone/Acetaminophen (Hydrocodone-Acetamin 5-325 mg) 1 Each Tablet, 1 EACH PO Q6HRS for BONE METS, (Reported) Entered as Reported by: BAUTISTA STOKES on 12/14/18 1428 Last Action: Continued on 09/23/191527 by MELANY BANKS MD Insulin Aspart (Novolog Flexpen) 100 Unit/1 Ml Insuln.pen, 1 UNIT SQ PRN, (Reported) SSI Blood Sugar Level Breakfast Lunch Dinner HS > 180 to 200 1 1 1 0 > 200 to 250 2 2 2 0 > 250 to 300 3 3 3 1 > 300 to 400 4 4 4 2 > 400 5 5 5 3 Food Carbs is whatever the total carbs are divided by 8=amount of units to be added to SSI and plus 10 units for the steriods to be given. exaple: SSI + Carbs + Steriod = total units of insulin to be given daily Entered as Reported by: LISA QUIJANO on 01/17/182114 Insulin Detemir (Levemir) 100 Unit/1 Ml Vial, 1 UNIT SQ HS for DM, (Reported) Entered as Reported by: BRENDA DEL REAL on 09/23/191847 Last Action: New Order on 09/23/191847 by BRENDA DEL REAL Insulin Glargine,Hum.rec.anlog (Lantus) 100 Unit/1 Ml Vial, 16 UNIT SQ QHS for dm for 30 Days Prescribed by: CARLOS A MELTON on 09/25/19 1008 Insulin Lispro (Humalog) 100 Unit/1 Ml Insuln.pen, 3 UNITS SQ TIDAC for dm for 30 Days Prescribed by: CARLOS A MELTON on 09/25/19 1008 Levothyroxine Sodium (Levothyroxine Sodium) 175 Mcg Tablet, 1 TAB PO DAILY for tghyroid, #30 Ref 5 (Reported) Entered as Reported by: BRENDA DEL REAL on 09/23/191847 Last Action: Continued on 09/23/192357 by MELANY BANKS MD Metoprolol Tartrate (Metoprolol Tartrate) 50 Mg Tablet, 1 TAB PO BID for HTN, (Reported) Entered as Reported by: TAYLOR MURPHY on 09/12/15848 Last Action: Continued on 09/23/191527 by MELANY BANKS MD Oxycodone Hcl (Oxycontin) 20 Mg Tab.er.12h, 1 TAB PO BID for pain MDD 2 Tablet(s) for 30 Days, #60 Ref 0 (Reported) Entered as Reported by: BRENDA DEL REAL on 09/23/191847 Last Action: New Order on 09/23/191847 by BRENDA DEL REAL Sennosides (Senna) 8.8 Mg/5 Ml Syrup, 8.8 MG PO constipation for stool softener, (Reported) Entered as Reported by: BRENDA DEL REAL on 09/23/191847 Last Action: New Order on 09/23/191847 by BRENDA DEL REAL Sertraline Hcl (Sertraline Hcl) 100 Mg Tablet, 100 MG PO 2tabs po daily for depression, (Reported) Entered as Reported by: TAYLOR MURPHY on 09/12/15848 Last Action: Converted on 09/23/191526 by MELANY BANKS MD Scheduled PRN Ondansetron (Zofran Odt) 8 Mg Tab.rapdis, 8 MG PO BID PRN for NAUSEA/VOMITING, (Reported) Entered as Reported by: Xavi Azar on 02/25/172151 Last Action: Converted on 09/23/191527 by MELANY BANKS MD Discontinued Medications Insulin Detemir (Levemir Flextouch) 100 Unit/1 Ml Insuln.pen, 18 UNIT SQ HS, (Reported) Entered as Reported by: LISA QUIJANO on 01/17/182101 Last Action: Discontinued on 09/23/191453 by PATRICIO GUZMAN RN Levothyroxine Sodium (Levothyroxine Sodium) 125 Mcg Tablet, 1 TAB PO DAILY for low thyroid, #30 Ref 5 (Reported) Entered as Reported by: NICOLE BECERRA on 08/30/19 09 Last Action: Discontinued on 09/23/191453 by MARCK ANDERSON CHERRIE Y MD Sep 25, 2019 10:11
--- NOTE | 2019-09-25 10:44 | SNU/HH DC ---
DISCHARGE ORDERS DISCHARGE INFORMATION: DISCHARGE DATE: Sep 25, 2019 FINAL DIAGNOSIS Problems Medical Problems: (1) Mqmrq-zg-nrnhpur kidney injury Status: Acute (2) Diabetic ketoacidosis Status: Acute CONDITION ON DISCHARGE: Stable CODE STATUS: Code Status: Full FCI: SNF STAY <30 DAYS: Yes HOSPICE: HOSPICE: No HOSPICE EVAL & TREAT: No LTAC: ADMIT TO LTAC: No POST DISCHARGE ORDERS: ACTIVITY ORDERS: Activity as tolerated WEIGHT BEARING STATUS: As tolerated BATHING ORDERS: Shower-keep dressing dry DIET AFTER DISCHARGE: Regular WOUND/INCISION CARE: Other, see below CHECKS AFTER DISCHARGE: CHECKS AFTER DISCHARGE: Check blood sugar, ac/hs TREATMENT/EQUIPMENT ORDERS: ADAPTIVE EQUIPMENT NEEDED: None, Front wheeled walker Physical Therapy For: Evalulation/Treatment Occupational Therapy For: Evaluation/Treatment DISCHARGE MEDICATIONS: Home Meds Active Scripts Insulin Lispro (HUMALOG) 100 Unit/1 Ml Insuln.pen, 3 UNITS SQ TIDAC for dm for 30 Days, EACH Prov:CARLOS A MELTON MD 09/25/19 Insulin Glargine,Hum.rec.anlog (LANTUS) 100 Unit/1 Ml Vial, 16 UNIT SQ QHS for dm for 30 Days, EACH Prov:CARLOS A MELTON MD 09/25/19 Reported Medications Sennosides (SENNA) 8.8 Mg/5 Ml Syrup, 8.8 MG PO constipation for stool softener, MISC 09/23/19 Docusate Sodium (DOCUSATE SODIUM) 100 Mg Capsule, 1 CAP PO BID for constipation for 7 Days, #14 CAP 0 Refills 09/23/19 Calcium Carbonate (CALCIUM) 500 Mg Tab.chew, 500 MG PO HS for bone health, TAB.CHEW 09/23/19 Oxycodone Hcl (OXYCONTIN) 20 Mg Tab.er.12h, 1 TAB PO BID for pain MDD 2 Tablet(s) for 30 Days, #60 TAB 0 Refills 09/23/19 Levothyroxine Sodium (LEVOTHYROXINE SODIUM) 175 Mcg Tablet, 1 TAB PO DAILY for tghyroid, #30 TAB 5 Refills 09/23/19 Insulin Detemir (LEVEMIR) 100 Unit/1 Ml Vial, 1 UNIT SQ HS for DM, VIAL 09/23/19 Hydrocodone/Acetaminophen (Hydrocodone-Acetamin 5-325 mg) 1 Each Tablet, 1 EACH PO Q6HRS for BONE METS 12/14/18 Insulin Aspart (NOVOLOG FLEXPEN) 100 Unit/1 Ml Insuln.pen, 1 UNIT SQ PRN, SYR SSI Blood Sugar Level Breakfast Lunch Dinner HS > 180 to 200 1 1 1 0 > 200 to 250 2 2 2 0 > 250 to 300 3 3 3 1 > 300 to 400 4 4 4 2 > 400 5 5 5 3 Food Carbs is whatever the total carbs are divided by 8=amount of units to be added to SSI and plus 10 units for the steriods to be given. exaple: SSI + Carbs + Steriod = total units of insulin to be given daily 01/17/18 Bupropion Hcl (WELLBUTRIN XL) 150 Mg Tab.er.24h, 150 MG PO DAILY for depression 01/04/18 Amlodipine Besylate (AMLODIPINE BESYLATE) 10 Mg Tablet, 10 MG PO DAILY for HTN 11/22/17 Ondansetron (ZOFRAN ODT) 8 Mg Tab.rapdis, 8 MG PO BID PRN for NAUSEA/VOMITING, TAB 02/25/17 Clonidine Hcl (CLONIDINE HCL) 0.1 Mg Tablet, 0.1 MG PO BID for HTN if b/p over 145. 02/25/17 Folic Acid (FOLIC ACID) 1 Mg Tablet, 1 MG PO DAILY, TAB 02/04/16 Cholecalciferol (Vitamin D3) (VITAMIN D) 1,000 Unit Tablet, 1000 UNIT PO DAILY 09/12/15 Metoprolol Tartrate (METOPROLOL TARTRATE) 50 Mg Tablet, 1 TAB PO BID for HTN 09/12/15 Sertraline Hcl (SERTRALINE HCL) 100 Mg Tablet, 100 MG PO 2tabs po daily for depression 09/12/15 Aspirin (ASPIRIN) 81 Mg Tab.chew, 1 TAB PO DAILY for heart health 09/12/15 Discontinued Reported Medications Levothyroxine Sodium (LEVOTHYROXINE SODIUM) 125 Mcg Tablet, 1 TAB PO DAILY for low thyroid, #30 TAB 5 Refills 08/30/19 Insulin Detemir (Levemir Flextouch) 100 Unit/1 Ml Insuln.pen, 18 UNIT SQ HS, SYR 01/17/18 CARLOS A MELTON MD Sep 25, 2019 10:44
--- NOTE | 2019-09-25 10:47 | SNU/HH DC ---
DISCHARGE WITH HOME HEALTH DISCHARGE INFORMATION: Discharge Date: Sep 25, 2019 Final Diagnosis: Problems Medical Problems: (1) Ketux-se-kdmjuil kidney injury Status: Acute (2) Diabetic ketoacidosis Status: Acute Condition on Discharge: Stable CODE STATUS: Code Status: Full HOME HEALTH: Face to Face: I certify this patient is under my care and that I, or a nurse practitioner or physician's information services assistant working with me, had a face to face encounter that meets the physician face to face encounter requirements with this patient on []. Medical Complications: Dementia, DM, Falls RN For Eval/Treatment: Yes Physical Therapy For: Evalulation/Treatment Occupational Therapy For: Evaluation/Treatment Home Health Aide For: Self-care BOARD CERTIFIED BEHAVIORAL ANALYST For: Community Resources Pt Meets Homebound Status: Unsteady balance w/ amb,, Extreme weakness w/ amb., Fatigue w/ amb. POST DISCHARGE ORDERS: Activity Instructions for Disc: Activity as tolerated Weight Bearing Status after Di: As tolerated Bathing Instructions: Shower-keep dressing dry DIET AFTER DISCHARGE: Regular Wound/Incision Care: Other, see below CHECKS AFTER DISCHARGE: Checks after discharge: Check blood sugar, ac/hs FOLLOW-UP: PCP to follow Home Health: heme on c DR Simon re your chemo lung CA stage 4 treatment TREATMENT/EQUIPMENT ORDERS: Adaptive Equipment Issued: None, Front wheeled walker CERTIFICATION STATEMENT: Certification Statement: Certification Statement: Based on the above finding, I certify that this patient is confined to the home and needs intermittent custodial care, physical therapy and/or speech therapy, or continues to need occupational therapy.~ This patient is under my care, and I have initiated the establishment of the plan of care.~ This patient will be followed by myself or a community physician who will periodically review the plan of care. Home Meds Active Scripts Insulin Lispro (HUMALOG) 100 Unit/1 Ml Insuln.pen, 3 UNITS SQ TIDAC for dm for 30 Days, EACH Prov:CARLOS A MELTON MD 09/25/19 Insulin Glargine,Hum.rec.anlog (LANTUS) 100 Unit/1 Ml Vial, 16 UNIT SQ QHS for dm for 30 Days, EACH Prov:CARLOS A MELTON MD 09/25/19 Reported Medications Sennosides (SENNA) 8.8 Mg/5 Ml Syrup, 8.8 MG PO constipation for stool softener, MISC 09/23/19 Docusate Sodium (DOCUSATE SODIUM) 100 Mg Capsule, 1 CAP PO BID for constipation for 7 Days, #14 CAP 0 Refills 09/23/19 Calcium Carbonate (CALCIUM) 500 Mg Tab.chew, 500 MG PO HS for bone health, TAB.CHEW 09/23/19 Oxycodone Hcl (OXYCONTIN) 20 Mg Tab.er.12h, 1 TAB PO BID for pain MDD 2 Tablet(s) for 30 Days, #60 TAB 0 Refills 09/23/19 Levothyroxine Sodium (LEVOTHYROXINE SODIUM) 175 Mcg Tablet, 1 TAB PO DAILY for tghyroid, #30 TAB 5 Refills 09/23/19 Insulin Detemir (LEVEMIR) 100 Unit/1 Ml Vial, 1 UNIT SQ HS for DM, VIAL 09/23/19 Hydrocodone/Acetaminophen (Hydrocodone-Acetamin 5-325 mg) 1 Each Tablet, 1 EACH PO Q6HRS for BONE METS 12/14/18 Insulin Aspart (NOVOLOG FLEXPEN) 100 Unit/1 Ml Insuln.pen, 1 UNIT SQ PRN, SYR SSI Blood Sugar Level Breakfast Lunch Dinner HS > 180 to 200 1 1 1 0 > 200 to 250 2 2 2 0 > 250 to 300 3 3 3 1 > 300 to 400 4 4 4 2 > 400 5 5 5 3 Food Carbs is whatever the total carbs are divided by 8=amount of units to be added to SSI and plus 10 units for the steriods to be given. exaple: SSI + Carbs + Steriod = total units of insulin to be given daily 01/17/18 Bupropion Hcl (WELLBUTRIN XL) 150 Mg Tab.er.24h, 150 MG PO DAILY for depression 01/04/18 Amlodipine Besylate (AMLODIPINE BESYLATE) 10 Mg Tablet, 10 MG PO DAILY for HTN 11/22/17 Ondansetron (ZOFRAN ODT) 8 Mg Tab.rapdis, 8 MG PO BID PRN for NAUSEA/VOMITING, TAB 02/25/17 Clonidine Hcl (CLONIDINE HCL) 0.1 Mg Tablet, 0.1 MG PO BID for HTN if b/p over 145. 02/25/17 Folic Acid (FOLIC ACID) 1 Mg Tablet, 1 MG PO DAILY, TAB 02/04/16 Cholecalciferol (Vitamin D3) (VITAMIN D) 1,000 Unit Tablet, 1000 UNIT PO DAILY 09/12/15 Metoprolol Tartrate (METOPROLOL TARTRATE) 50 Mg Tablet, 1 TAB PO BID for HTN 09/12/15 Sertraline Hcl (SERTRALINE HCL) 100 Mg Tablet, 100 MG PO 2tabs po daily for depr ession 09/12/15 Aspirin (ASPIRIN) 81 Mg Tab.chew, 1 TAB PO DAILY for heart health 09/12/15 Discontinued Reported Medications Levothyroxine Sodium (LEVOTHYROXINE SODIUM) 125 Mcg Tablet, 1 TAB PO DAILY for low thyroid, #30 TAB 5 Refills 08/30/19 Insulin Detemir (Levemir Flextouch) 100 Unit/1 Ml Insuln.pen, 18 UNIT SQ HS, SYR 01/17/18 CARLOS A MELTON MD Sep 25, 2019 10:46
[2019-09-25 11:00] VITALS: BP 140/58
[2019-09-25] MEDS ORDERED: IV NORMAL SALINE 1000ML BAG 1,000 ML IV ONE (11:00)
--- NOTE | 2019-09-25 11:39 | PDOC ---
PROGRESS NOTES Subjective Subjective HPI - f/u of Stage 4 lung cancer ROS - feels better Objective Objective Vital Signs Date Time Temp Pulse Resp B/P (MAP) Pulse Ox O2 Delivery O2 Flow Rate FiO2 09/25/19 09:58 75 170/68 09/25/19 08:20 Room Air 09/25/19 07:00 98.1 18 97 98.1 Intake and Output 09/25/19 07:00 Intake Total 300 ml Output Total 1730 ml Balance -1430 ml Intake Oral 300 ml Output Urine Total 1730 ml Physical Exam Heart: Normal S1, Normal S2 General: Alert, Oriented X3, No acute distress Lungs: Clear to auscultation Neuro: Normal speech Psych/Mental Status: Mental status NL Assessment Assessment Problems Medical Problems: (1) Hiimj-zw-ylhrmls kidney injury Status: Acute (2) Diabetic ketoacidosis Status: Acute IMPRESSION AND PLAN: 1. Stage 4 lung cancer involving the left lower lobe of the lung with left-sided malignant pleural effusion, pericardial effusion, bone metastasis, adrenal gland metastasis. She is on immunotherapy with Opdivo and her most recent treatment was on 09/18/2019. She is now admitted with diabetic ketoacidosis. This could be related to uncontrolled diabetes versus Opdivo. I have recommended to hold Opdivo for now and I will reevaluate in 1 month. 2. Diabetic ketoacidosis. Continue management per Dr. Saroj Le. Improving. 3. Bone metastasis. Continue supportive care. 4. History of pericardial effusion, status post pericardiocentesis on 10/21/2018. Cytology was negative for malignancy. However, clinically it is suggestive of malignancy. 5. Brain metastasis diagnosed on 11/11/2017, status post stereotactic radiation therapy to the brain from 11/21/2017 to 12/06/2017. Comment Review of Relevant I have reviewed the following items chivo (where applicable) has been applied. Labs Laboratory Tests Test 09/23/19 12:05 09/23/19 12:33 09/23/19 13:46 09/23/19 14:49 O2 Saturation 97 % (92-99) Arterial Blood pH 7.28 (7.35-7.45) Arterial Blood pCO2 at Patient Temp 20 mmHg (35-46) Arterial Blood pO2 at Patient Temp 109 mmHg (65-108) Arterial Blood HCO3 9 mmol/L (21-28) Arterial Blood Base Excess -16 mmol/L (-3-3) Glucose (Fingerstick) 354 mg/dL (70-99) 238 mg/dL (70-99) 263 mg/dL (70-99) Test 09/23/19 15:45 09/23/19 15:55 09/23/19 17:01 09/23/19 18:04 Sodium Level 136 mmol/L (136-145) Potassium Level 3.8 mmol/L (3.5-5.1) Chloride Level 100 mmol/L (98-107) Carbon Dioxide Level 16 mmol/L (21-32) Anion Gap 20 (6-14) Blood Urea Nitrogen 37 mg/dL (7-20) Creatinine 2.8 mg/dL (0.6-1.0) Estimated GFR (Cockcroft-Gault) 17.0 Glucose Level 269 mg/dL (70-99) Lactic Acid Level 1.5 mmol/L (0.4-2.0) Calcium Level 9.1 mg/dL (8.5-10.1) Phosphorus Level 2.3 mg/dL (2.6-4.7) Magnesium Level 2.1 mg/dL (1.8-2.4) Thyroid Stimulating Hormone (TSH) 1.723 uIU/mL (0.358-3.74) Glucose (Fingerstick) 235 mg/dL (70-99) 235 mg/dL (70-99) 214 mg/dL (70-99) Test 09/23/19 19:10 09/23/19 20:12 09/23/19 21:15 09/23/19 22:16 Glucose (Fingerstick) 164 mg/dL (70-99) 147 mg/dL (70-99) 120 mg/dL (70-99) 110 mg/dL (70-99) Test 09/23/19 22:25 09/23/19 22:30 09/23/19 23:26 09/24/19 00:28 Urine Collection Type Unknown Urine Color Yellow Urine Clarity Clear Urine pH 5.5 Urine Specific [place] 1.015 Urine Protein Negative mg/dL (NEG-TRACE) Urine Glucose (UA) 250 mg/dL (NEG) Urine Ketones (Stick) 40 mg/dL (NEG) Urine Blood Negative (NEG) Urine Nitrite Negative (NEG) Urine Bilirubin Large (NEG) Urine Urobilinogen Dipstick 0.2 mg/dL (0.2 mg/dL) Urine Leukocyte Esterase Moderate (NEG) Urine RBC Occ /HPF (0-2) Urine WBC 11-20 /HPF (0-4) Urine Squamous Epithelial Cells Few /LPF Urine Bacteria Many /HPF (0-FEW) Urine Mucus Slight /LPF Sodium Level 139 mmol/L (136-145) Potassium Level 3.8 mmol/L (3.5-5.1) Chloride Level 104 mmol/L (98-107) Carbon Dioxide Level 21 mmol/L (21-32) Anion Gap 14 (6-14) Blood Urea Nitrogen 31 mg/dL (7-20) Creatinine 2.4 mg/dL (0.6-1.0) Estimated GFR (Cockcroft-Gault) 20.3 Glucose Level 107 mg/dL (70-99) Calcium Level 8.8 mg/dL (8.5-10.1) Phosphorus Level 2.0 mg/dL (2.6-4.7) Magnesium Level 2.2 mg/dL (1.8-2.4) Glucose (Fingerstick) 95 mg/dL (70-99) 97 mg/dL (70-99) Test 09/24/19 01:47 09/24/19 04:51 09/24/19 05:45 09/24/19 06:30 Glucose (Fingerstick) 91 mg/dL (70-99) 134 mg/dL (70-99) 137 mg/dL (70-99) White Blood Count 5.1 x10^3/uL (4.0-11.0) Red Blood Count 3.10 x10^6/uL (3.50-5.40) Hemoglobin 9.4 g/dL (12.0-15.5) Hematocrit 28.3 % (36.0-47.0) Mean Corpuscular Volume 91 fL (79-100) Mean Corpuscular Hemoglobin 30 pg (25-35) Mean Corpuscular Hemoglobin Concent 33 g/dL (31-37) Red Cell Distribution Width 15.1 % (11.5-14.5) Platelet Count 233 x10^3/uL (140-400) Neutrophils (%) (Auto) 77 % (31-73) Lymphocytes (%) (Auto) 7 % (24-48) Monocytes (%) (Auto) 12 % (0-9) Eosinophils (%) (Auto) 3 % (0-3) Basophils (%) (Auto) 1 % (0-3) Neutrophils # (Auto) 4.0 x10^3/uL (1.8-7.7) Lymphocytes # (Auto) 0.4 x10^3/uL (1.0-4.8) Monocytes # (Auto) 0.6 x10^3/uL (0.0-1.1) Eosinophils # (Auto) 0.1 x10^3/uL (0.0-0.7) Basophils # (Auto) 0.0 x10^3/uL (0.0-0.2) Sodium Level 140 mmol/L (136-145) Potassium Level 4.0 mmol/L (3.5-5.1) Chloride Level 108 mmol/L (98-107) Carbon Dioxide Level 20 mmol/L (21-32) Anion Gap 12 (6-14) Blood Urea Nitrogen 24 mg/dL (7-20) Creatinine 2.0 mg/dL (0.6-1.0) Estimated GFR (Cockcroft-Gault) 25.1 Glucose Level 143 mg/dL (70-99) Calcium Level 8.0 mg/dL (8.5-10.1) Phosphorus Level 3.2 mg/dL (2.6-4.7) Magnesium Level 1.9 mg/dL (1.8-2.4) Test 09/24/19 08:25 09/24/19 12:47 09/24/19 17:00 09/24/19 20:42 Glucose (Fingerstick) 188 mg/dL (70-99) 110 mg/dL (70-99) 166 mg/dL (70-99) 96 mg/dL (70-99) Test 09/25/19 00:39 09/25/19 04:29 09/25/19 09:48 Glucose (Fingerstick) 119 mg/dL (70-99) 168 mg/dL (70-99) 316 mg/dL (70-99) Laboratory Tests Test 09/24/19 12:47 09/24/19 17:00 09/24/19 20:42 09/25/19 00:39 Glucose (Fingerstick) 110 mg/dL (70-99) 166 mg/dL (70-99) 96 mg/dL (70-99) 119 mg/dL (70-99) Test 09/25/19 04:29 09/25/19 09:48 Glucose (Fingerstick) 168 mg/dL (70-99) 316 mg/dL (70-99) Microbiology 09/23/19 Blood Culture - Preliminary, Resulted NO GROWTH AFTER 1 DAY Medications Current Medications Sodium Chloride 1,000 ml @ 1,000 mls/hr Q1H IV Last administered on 09/23/19at 11:23; Start 09/23/19 at 11:01; Stop 09/23/19 at 12:00; Status DC Ondansetron HCl (Zofran) 4 mg 1X ONCE IV Last administered on 09/23/19at 11:24; Start 09/23/19 at 11:15; Stop 09/23/19 at 11:16; Status DC Insulin Human Regular 150 ml @ 0 mls/hr 1X ONCE IV Last administered on 09/23/19at 12:42; Start 09/23/19 at 12:00; Stop 09/23/19 at 23:58; Status DC Ondansetron HCl (Zofran) 4 mg PRN Q8HRS PRN IV NAUSEA/VOMITING; Start 09/23/19 at 12:30 Insulin Human Regular 150 unit/ Sodium Chloride 151.5 ml @ 0 mls/hr CONT PRN PRN IV PER PROTOCOL Last administered on 09/23/19at 22:53; Start 09/23/19 at 14:00; Stop 09/23/19 at 23:58; Status DC Magnesium Sulfate 100 ml @ 25 mls/hr PRN DAILY PRN IV For MAG++ level of 1.8 or Less Last administered on 09/23/19at 14:00; Start 09/23/19 at 14:00; Stop 09/25/19 at 09:09; Status DC Dextrose/Sodium Chloride 1,000 ml @ 250 mls/hr Q4H IV Last administered on 09/23/19at 22:31; Start 09/23/19 at 14:00; Stop 09/23/19 at 23:58; Status DC Amlodipine Besylate (Norvasc) 10 mg DAILY PO Last administered on 09/25/19at 09:58; Start 12/16/19 at 09:00 Aspirin (Children'S Aspirin) 81 mg DAILY PO Last administered on 09/25/19 09:57; Start 09/24/19 at 09:00 Bupropion HCl (Wellbutrin Xl) 150 mg DAILY PO Last administered on 09/25/19 09:57; Start 09/24/19 at 09:00 Vitamin D (Vitamin D3) 1,000 unit DAILY PO Last administered on 09/25/19 09:57; Start 09/24/19 at 09:00 Clonidine HCl (Catapres) 0.1 mg BID PO Last administered on 09/25/19 09:57; Start 09/23/19 at 21:00 Folic Acid (Folic Acid) 1 mg DAILY PO Last administered on 09/25/19 09:57; Start 09/24/19 at 09:00 Acetaminophen/ Hydrocodone Bitart (Lortab 5/325) 1 tab Q6HRS PO ; Start 09/23/19 at 18:00 Metoprolol Tartrate (Lopressor) 50 mg BID PO Last administered on 09/25/19at 09:58; Start 09/23/19 at 21:00 Ondansetron HCl (Zofran Odt) 4 mg PRN BID PRN PO NAUSEA/VOMITING Last administered on 09/24/19at 17:04; Start 09/23/19 at 15:45 Sertraline HCl (Zoloft) 200 mg DAILY PO Last administered on 09/25/19at 09:57; Start 09/24/19 at 09:00 Heparin Sodium (Porcine) (Heparin Sodium) 5,000 unit Q8HRS SQ Last administered on 09/25/19at 06:06; Start 09/23/19 at 22:00; Stop 09/25/19 at 09:09; Status DC Trazodone HCl (Desyrel) 50 mg PRN QHS PRN PO INSOMNIA; Start 09/23/19 at 21:00 Bisacodyl (Dulcolax Supp) 10 mg PRN DAILY PRN MI CONSTIPATION; Start 09/23/19 at 16:00 Acetaminophen (Tylenol Supp) 650 mg PRN Q6HRS PRN MI MILD PAIN / TEMP; Start 09/23/19 at 16:00; Stop 09/25/19 at 09:09; Status DC Potassium Chloride/Water 100 ml @ 100 mls/hr PRN Q1HR PRN IV SEE COMMENTS; Start 09/23/19 at 16:45; Stop 09/25/19 at 09:09; Status DC Sodium Phosphate 20 mmol/Dextrose 256.6667 ml @ 62.5 mls/hr 1X PRN PRN IV SEE COMMENTS; Start 09/23/19 at 16:45; Status Cancel Sodium Phosphate 20 mmol/Dextrose 256.6667 ml @ 62.5 mls/hr 1X ONCE IV Last administered on 09/23/19at 17:24; Start 09/23/19 at 17:00; Stop 09/23/19 at 21:06; Status DC Potassium Chloride/Water 100 ml @ 100 mls/hr Q1HR IV Last administered on 09/23/19at 21:01; Start 09/23/19 at 17:00; Stop 09/23/19 at 20:59; Status DC Levothyroxine Sodium (Synthroid) 125 mcg DAILY06 PO Last administered on 09/25/19at 05:59; Start 09/24/19 at 06:00 Insulin Glargine (Lantus Syringe) 16 unit QHS SQ Last administered on 09/24/19at 00:12; Start 09/24/19 at 00:00 Insulin Human Lispro (HumaLOG) 0-7 UNITS Q4HRS SQ Last administered on 09/24/19at 17:06; Start 09/24/19 at 00:00; Stop 09/25/19 at 09:09; Status DC Dextrose (Dextrose 50%-Water Syringe) 12.5 gm PRN Q15MIN PRN IV SEE COMMENTS; Start 09/24/19 at 00:00; Stop 09/25/19 at 09:10; Status DC Dextrose (Iv Dextrose 5%) 250 ml PRN Q15MIN PRN IV SEE COMMENTS; Start 09/24/19 at 00:00; Stop 09/25/19 at 09:11; Status DC Insulin Human Lispro (HumaLOG) 3 units TIDAC SQ Last administered on 09/25/19at 10:09; Start 09/24/19 at 07:30 Potassium Phosphate 15 mmol/ Sodium Chloride 255 ml @ 127.5 mls/ hr 1X ONCE IV Last administered on 09/24/19at 00:15; Start 09/24/19 at 00:15; Stop 09/24/19 at 02:14; Status DC Docusate Sodium (Colace) 100 mg PRN DAILY PRN PO CONSTIPATION; Start 09/24/19 at 09:00 Acetaminophen (Tylenol) 650 mg PRN Q6HRS PRN PO HEADACHE Last administered on 09/24/19at 19:08; Start 09/24/19 at 18:45 Insulin Human Lispro (HumaLOG) 0-9 UNITS TIDWMEALS SQ ; Start 09/25/19 at 12:00 Dextrose (Dextrose 50%-Water Syringe) 12.5 gm PRN Q15MIN PRN IV SEE COMMENTS; Start 09/25/19 at 09:15 Dextrose (Iv Dextrose 5%) 250 ml PRN Q15MIN PRN IV SEE COMMENTS; Start 09/25/19 at 09:15 Sodium Chloride 1,000 ml @ 100 mls/hr Q10H IV Last administered on 09/25/19at 10:12; Start 09/25/19 at 09:15; Stop 09/25/19 at 10:49; Status DC Sodium Chloride 1,000 ml @ 1,000 mls/hr 1X ONCE IV Last administered on 09/25/19at 11:00; Start 09/25/19 at 11:00; Stop 09/25/19 at 11:59 Active Scripts Active Humalog (Insulin Lispro) 100 Unit/1 Ml Insuln.pen 3 Units SQ TIDAC 30 Days Lantus (Insulin Glargine,Hum.rec.anlog) 100 Unit/1 Ml Vial 16 Unit SQ QHS 30 Days Reported Senna (Sennosides) 8.8 Mg/5 Ml Syrup 8.8 Mg PO CONSTIPATION Docusate Sodium 100 Mg Capsule 1 Cap PO BID 7 Days Calcium (Calcium Carbonate) 500 Mg Tab.chew 500 Mg PO HS Oxycontin (Oxycodone HCl) 20 Mg Tab.er.12h 1 Tab PO BID MDD 2 Tablet(s) 30 Days Levothyroxine Sodium 175 Mcg Tablet 1 Tab PO DAILY Levemir (Insulin Detemir) 100 Unit/1 Ml Vial 1 Unit SQ HS Hydrocodone-Acetamin 5-325 mg (Hydrocodone/Acetaminophen) 1 Each Tablet 1 Each PO Q6HRS Novolog Flexpen (Insulin Aspart) 100 Unit/1 Ml Insuln.pen 1 Unit SQ PRN SSI Blood Sugar Level Breakfast Lunch Dinner HS > 180 to 200 1 1 1 0 > 200 to 250 2 2 2 0 > 250 to 300 3 3 3 1 > 300 to 400 4 4 4 2 > 400 5 5 5 3 Food Carbs is whatever the total carbs are divided by 8=amount of units to be added to SSI and plus 10 units for the steriods to be given. exaple: SSI + Carbs + Steriod = total units of insulin to be given daily Wellbutrin Xl (Bupropion Hcl) 150 Mg Tab.er.24h 150 Mg PO DAILY Amlodipine Besylate 10 Mg Tablet 10 Mg PO DAILY Zofran Odt (Ondansetron) 8 Mg Tab.rapdis 8 Mg PO BID PRN Clonidine Hcl 0.1 Mg Tablet 0.1 Mg PO BID if b/p over 145. Folic Acid 1 Mg Tablet 1 Mg PO DAILY Vitamin D (Cholecalciferol (Vitamin D3)) 1,000 Unit Tablet 1,000 Unit PO DAILY Metoprolol Tartrate 50 Mg Tablet 1 Tab PO BID Sertraline Hcl 100 Mg Tablet 100 Mg PO 2TABS PO DAILY Aspirin 81 Mg Tab.chew 1 Tab PO DAILY Vitals/I & O Vital Sign - Last 24 Hours 09/24/19 09/24/19 09/24/19 09/24/19 12:00 12:00 12:00 16:00 Temp 98.1 98.3 98.1 98.3 Pulse 80 78 Resp 20 16 B/P (MAP) 115/59 (77) 158/62 (94) Pulse Ox 97 96 O2 Delivery Room Air Room Air Room Air Room Air 09/24/19 09/24/19 09/24/19 09/24/19 19:42 20:00 20:44 20:44 Temp 98.3 98.3 Pulse 74 74 75 Resp 20 B/P (MAP) 154/74 (100) 154/74 154/74 Pulse Ox 95 O2 Delivery Room Air Room Air 09/24/19 09/25/19 09/25/19 09/25/19 23:00 04:00 07:00 08:20 Temp 98.4 98.0 98.1 98.4 98.0 98.1 Pulse 67 75 75 Resp 18 18 18 B/P (MAP) 152/57 (88) 159/70 (99) 170/68 (102) Pulse Ox 96 98 97 O2 Delivery Room Air Room Air Room Air Room Air 09/25/19 09/25/19 09/25/19 09:57 09:58 09:58 Pulse 75 75 75 B/P (MAP) 170/68 170/68 170/68 Intake and Output 09/24/19 09/24/19 09/25/19 15:00 23:00 07:00 Intake Total 0 ml 300 ml Output Total 580 ml 400 ml 750 ml Balance -580 ml -100 ml -750 ml KOSTAS SEARS MD Sep 25, 2019 11:39
[2019-09-25 13:29] LABS: CALCIUM 8.3 mg/dL (8.5-10.1); CREATININE 1.6 mg/dL (0.6-1.0); GFR 32.5
[2019-09-25 15:00] VITALS: BP 93/63
[2019-09-25 19:15] VITALS: BP 127/58
[2019-09-25] MEDS: INSULIN GLARGINE SYRINGE. SQ SCH (21:35)
[2019-09-25 23:20] VITALS: BP 163/61
[2019-09-26 03:20] VITALS: BP 117/66
[2019-09-26] MEDS: LEVOTHYROXINE 125 MCG TABLET PO SCH (04:52)
[2019-09-26] MEDS: HYDROcodone/APAP 5/325MG 1 TAB TABLET PO SCH ×3 (04:56→10:47)
[2019-09-26 07:00] VITALS: BP 154/60
[2019-09-26] MEDS: SERTRALINE 50 MG TABLET. PO SCH (08:12)
[2019-09-26] MEDS: ASPIRIN CHEWABLE 81 MG TABLET. PO SCH (08:12)
[2019-09-26] MEDS: CHOLECALCIFEROL (VITAMIN D3) 1,000 UNIT TABLET PO SCH (08:12)
[2019-09-26] MEDS: METOPROLOL TART IMMED RELEASE 50 MG TABLET. PO SCH (08:12)
[2019-09-26] MEDS: FOLIC ACID 1 MG TABLET. PO SCH (08:12)
[2019-09-26] MEDS: buPROPion XL 150 MG TAB.ER.24H. PO SCH (08:12)
[2019-09-26] MEDS: cloNIDine HCL 0.1 MG TABLET PO SCH (08:13)
[2019-09-26] MEDS: amLODIPine BESYLATE 10 MG TABLET PO SCH (08:13)
[2019-09-26] MEDS: INSULIN LISPRO 300 UNITS/3 ML VIAL. SQ SCH ×4 (08:18→11:55)
--- NOTE | 2019-09-26 09:09 | PDOC ---
PROGRESS NOTES Subjective Subjective HPI - f/u of Stage 4 lung cancer/NSCLC ROS - no CP Objective Objective Vital Signs Date Time Temp Pulse Resp B/P (MAP) Pulse Ox O2 Delivery O2 Flow Rate FiO2 09/26/19 08:13 75 154/90 09/26/19 07:30 Room Air 09/26/19 07:00 99.0 18 98 99.0 Intake and Output 09/26/19 07:00 Intake Total 200 ml Output Total 100 ml Balance 100 ml Intake Oral 200 ml IV Total 0 ml Output Urine Total 100 ml # Voids 6 Physical Exam Heart: Normal S1, Normal S2 General: Alert, Oriented X3, No acute distress Lungs: Clear to auscultation Neuro: Normal speech Psych/Mental Status: Mental status NL Assessment Assessment Problems Medical Problems: (1) Ybzem-uu-[id number] kidney injury Status: Acute (2) Diabetic ketoacidosis Status: Acute IMPRESSION AND PLAN: 1. Stage 4 lung cancer/NSCLC involving the left lower lobe of the lung with left-sided malignant pleural effusion, pericardial effusion, bone metastasis, adrenal gland metastasis. She is on immunotherapy with Opdivo and her most recent treatment was on 09/18/2019. She is now admitted with diabetic ketoacidosis. This could be related to uncontrolled diabetes versus Opdivo. I have recommended to hold Opdivo for now and I will reevaluate in 1 month. 2. Diabetic ketoacidosis. Continue management per Dr. Saroj Le. Improving. Glucose 248 3. Bone metastasis. Continue supportive care. 4. History of pericardial effusion, status post pericardiocentesis on 10/21/2018. Cytology was negative for malignancy. However, clinically it is suggestive of malignancy. 5. Brain metastasis diagnosed on 11/11/2017, status post stereotactic radiation therapy to the brain from 11/21/2017 to 12/06/2017. Comment Review of Relevant I have reviewed the following items chivo (where applicable) has been applied. Labs Laboratory Tests Test 09/24/19 12:47 09/24/19 17:00 09/24/19 20:42 09/25/19 00:39 Glucose (Fingerstick) 110 mg/dL (70-99) 166 mg/dL (70-99) 96 mg/dL (70-99) 119 mg/dL (70-99) Test 09/25/19 04:29 09/25/19 09:48 09/25/19 11:50 09/25/19 13:02 Glucose (Fingerstick) 168 mg/dL (70-99) 316 mg/dL (70-99) 289 mg/dL (70-99) Sodium Level 135 mmol/L (136-145) Potassium Level 4.0 mmol/L (3.5-5.1) Chloride Level 104 mmol/L (98-107) Carbon Dioxide Level 21 mmol/L (21-32) Anion Gap 10 (6-14) Blood Urea Nitrogen 20 mg/dL (7-20) Creatinine 1.6 mg/dL (0.6-1.0) Estimated GFR (Cockcroft-Gault) 32.5 Glucose Level 280 mg/dL (70-99) Calcium Level 8.3 mg/dL (8.5-10.1) Test 09/25/19 17:22 09/25/19 20:23 09/26/19 07:47 Glucose (Fingerstick) 158 mg/dL (70-99) 219 mg/dL (70-99) 248 mg/dL (70-99) Laboratory Tests Test 09/25/19 09:48 09/25/19 11:50 09/25/19 13:02 09/25/19 17:22 Glucose (Fingerstick) 316 mg/dL (70-99) 289 mg/dL (70-99) 158 mg/dL (70-99) Sodium Level 135 mmol/L (136-145) Potassium Level 4.0 mmol/L (3.5-5.1) Chloride Level 104 mmol/L (98-107) Carbon Dioxide Level 21 mmol/L (21-32) Anion Gap 10 (6-14) Blood Urea Nitrogen 20 mg/dL (7-20) Creatinine 1.6 mg/dL (0.6-1.0) Estimated GFR (Cockcroft-Gault) 32.5 Glucose Level 280 mg/dL (70-99) Calcium Level 8.3 mg/dL (8.5-10.1) Test 09/25/19 20:23 09/26/19 07:47 Glucose (Fingerstick) 219 mg/dL (70-99) 248 mg/dL (70-99) Microbiology 09/24/19 Urine Culture - Final, Complete 09/24/19 Urine Culture Result 1 (KATHLEEN) - Final, Complete 09/23/19 Blood Culture - Preliminary, Resulted NO GROWTH AFTER 2 DAYS Medications Current Medications Sodium Chloride 1,000 ml @ 1,000 mls/hr Q1H IV Last administered on 09/23/19at 11:23; Start 09/23/19 at 11:01; Stop 09/23/19 at 12:00; Status DC Ondansetron HCl (Zofran) 4 mg 1X ONCE IV Last administered on 09/23/19at 11:24; Start 09/23/19 at 11:15; Stop 09/23/19 at 11:16; Status DC Insulin Human Regular 150 ml @ 0 mls/hr 1X ONCE IV Last administered on 09/23/19at 12:42; Start 09/23/19 at 12:00; Stop 09/23/19 at 23:58; Status DC Ondansetron HCl (Zofran) 4 mg PRN Q8HRS PRN IV NAUSEA/VOMITING; Start 09/23/19 at 12:30 Insulin Human Regular 150 unit/ Sodium Chloride 151.5 ml @ 0 mls/hr CONT PRN PRN IV PER PROTOCOL Last administered on 09/23/19at 22:53; Start 09/23/19 at 14:00; Stop 09/23/19 at 23:58; Status DC Magnesium Sulfate 100 ml @ 25 mls/hr PRN DAILY PRN IV For MAG++ level of 1.8 or Less Last administered on 09/23/19at 14:00; Start 09/23/19 at 14:00; Stop 09/25/19 at 09:09; Status DC Dextrose/Sodium Chloride 1,000 ml @ 250 mls/hr Q4H IV Last administered on 09/23/19at 22:31; Start 09/23/19 at 14:00; Stop 09/23/19 at 23:58; Status DC Amlodipine Besylate (Norvasc) 10 mg DAILY PO Last administered on 09/26/19at 08:13; Start 09/24/19 at 09:00 Aspirin (Children'S Aspirin) 81 mg DAILY PO Last administered on 09/26/19at 08:12; Start 09/24/19 at 09:00 Bupropion HCl (Wellbutrin Xl) 150 mg DAILY PO Last administered on 09/26/19at 08:12; Start 09/24/19 at 09:00 Vitamin D (Vitamin D3) 1,000 unit DAILY PO Last administered on 09/26/19at 08:12; Start 09/24/19 at 09:00 Clonidine HCl (Catapres) 0.1 mg BID PO Last administered on 09/26/19at 08:13; Start 09/23/19 at 21:00 Folic Acid (Folic Acid) 1 mg DAILY PO Last administered on 09/26/19at 08:12; Start 09/24/19 at 09:00 Acetaminophen/ Hydrocodone Bitart (Lortab 5/325) 1 tab Q6HRS PO ; Start 09/23/19 at 18:00 Metoprolol Tartrate (Lopressor) 50 mg BID PO Last administered on 09/26/19at 08:12; Start 09/23/19 at 21:00 Ondansetron HCl (Zofran Odt) 4 mg PRN BID PRN PO NAUSEA/VOMITING Last administered on 09/24/19at 17:04; Start 09/23/19 at 15:45 Sertraline HCl (Zoloft) 200 mg DAILY PO Last administered on 09/26/19at 08:12; Start 09/24/19 at 09:00 Heparin Sodium (Porcine) (Heparin Sodium) 5,000 unit Q8HRS SQ Last administered on 09/25/19at 06:06; Start 09/23/19 at 22:00; Stop 09/25/19 at 09:09; Status DC Trazodone HCl (Desyrel) 50 mg PRN QHS PRN PO INSOMNIA; Start 09/23/19 at 21:00 Bisacodyl (Dulcolax Supp) 10 mg PRN DAILY PRN [place] CONSTIPATION; Start 09/23/19 at 16:00 Acetaminophen (Tylenol Supp) 650 mg PRN Q6HRS PRN [place] MILD PAIN / TEMP; Start 09/23/19 at 16:00; Stop 09/25/19 at 09:09; Status DC Potassium Chloride/Water 100 ml @ 100 mls/hr PRN Q1HR PRN IV SEE COMMENTS; Start 09/23/19 at 16:45; Stop 09/25/19 at 09:09; Status DC Sodium Phosphate 20 mmol/Dextrose 256.6667 ml @ 62.5 mls/hr 1X PRN PRN IV SEE COMMENTS; Start 09/23/19 at 16:45; Status Cancel Sodium Phosphate 20 mmol/Dextrose 256.6667 ml @ 62.5 mls/hr 1X ONCE IV Last ad ministered on 09/23/19at 17:24; Start 09/23/19 at 17:00; Stop 09/23/19 at 21:06; Status DC Potassium Chloride/Water 100 ml @ 100 mls/hr Q1HR IV Last administered on 09/23/19at 21:01; Start 09/23/19 at 17:00; Stop 09/23/19 at 20:59; Status DC Levothyroxine Sodium (Synthroid) 125 mcg DAILY06 PO Last administered on 09/26/19at 04:52; Start 09/24/19 at 06:00 Insulin Glargine (Lantus Syringe) 16 unit QHS SQ Last administered on 09/25/19at 21:35; Start 09/24/19 at 00:00 Insulin Human Lispro (HumaLOG) 0-7 UNITS Q4HRS SQ Last administered on 09/24/19at 17:06; Start 09/24/19 at 00:00; Stop 09/25/19 at 09:09; Status DC Dextrose (Dextrose 50%-Water Syringe) 12.5 gm PRN Q15MIN PRN IV SEE COMMENTS; Start 09/24/19 at 00:00; Stop 09/25/19 at 09:10; Status DC Dextrose (Iv Dextrose 5%) 250 ml PRN Q15MIN PRN IV SEE COMMENTS; Start 09/24/19 at 00:00; Stop 09/25/19 at 09:11; Status DC Insulin Human Lispro (HumaLOG) 3 units TIDAC SQ Last administered on 09/26/19at 08:19; Start 09/24/19 at 07:30 Potassium Phosphate 15 mmol/ Sodium Chloride 255 ml @ 127.5 mls/ hr 1X ONCE IV Last administered on 09/24/19at 00:15; Start 09/24/19 at 00:15; Stop 09/24/19 at 02:14; Status DC Docusate Sodium (Colace) 100 mg PRN DAILY PRN PO CONSTIPATION; Start 09/24/19 at 09:00 Acetaminophen (Tylenol) 650 mg PRN Q6HRS PRN PO HEADACHE Last administered on 09/24/19at 19:08; Start 09/24/19 at 18:45 Insulin Human Lispro (HumaLOG) 0-9 UNITS TIDWMEALS SQ Last administered on 09/26/19at 08:18; Start 09/25/19 at 12:00 Dextrose (Dextrose 50%-Water Syringe) 12.5 gm PRN Q15MIN PRN IV SEE COMMENTS; Start 09/25/19 at 09:15 Dextrose (Iv Dextrose 5%) 250 ml PRN Q15MIN PRN IV SEE COMMENTS; Start 09/25/19 at 09:15 Sodium Chloride 1,000 ml @ 100 mls/hr Q10H IV Last administered on 09/25/19at 10:12; Start 09/25/19 at 09:15; Stop 09/25/19 at 10:49; Status DC Sodium Chloride 1,000 ml @ 1,000 mls/hr 1X ONCE IV Last administered on 09/25/19at 11:00; Start 09/25/19 at 11:00; Stop 09/25/19 at 11:59; Status DC Active Scripts Active Humalog (Insulin Lispro) 100 Unit/1 Ml Insuln.pen 3 Units SQ TIDAC 30 Days Lantus (Insulin Glargine,Hum.rec.anlog) 100 Unit/1 Ml Vial 16 Unit SQ QHS 30 Days Reported Senna (Sennosides) 8.8 Mg/5 Ml Syrup 8.8 Mg PO CONSTIPATION Docusate Sodium 100 Mg Capsule 1 Cap PO BID 7 Days Calcium (Calcium Carbonate) 500 Mg Tab.chew 500 Mg PO HS Oxycontin (Oxycodone HCl) 20 Mg Tab.er.12h 1 Tab PO BID MDD 2 Tablet(s) 30 Days Levothyroxine Sodium 175 Mcg Tablet 1 Tab PO DAILY Levemir (Insulin Detemir) 100 Unit/1 Ml Vial 1 Unit SQ HS Hydrocodone-Acetamin 5-325 mg (Hydrocodone/Acetaminophen) 1 Each Tablet 1 Each PO Q6HRS Novolog Flexpen (Insulin Aspart) 100 Unit/1 Ml Insuln.pen 1 Unit SQ PRN SSI Blood Sugar Level Breakfast Lunch Dinner HS > 180 to 200 1 1 1 0 > 200 to 250 2 2 2 0 > 250 to 300 3 3 3 1 > 300 to 400 4 4 4 2 > 400 5 5 5 3 Food Carbs is whatever the total carbs are divided by 8=amount of units to be added to SSI and plus 10 units for the steriods to be given. exaple: SSI + Carbs + Steriod = total units of insulin to be given daily Wellbutrin Xl (Bupropion Hcl) 150 Mg Tab.er.24h 150 Mg PO DAILY Amlodipine Besylate 10 Mg Tablet 10 Mg PO DAILY Zofran Odt (Ondansetron) 8 Mg Tab.rapdis 8 Mg PO BID PRN Clonidine Hcl 0.1 Mg Tablet 0.1 Mg PO BID if b/p over 145. Folic Acid 1 Mg Tablet 1 Mg PO DAILY Vitamin D (Cholecalciferol (Vitamin D3)) 1,000 Unit Tablet 1,000 Unit PO DAILY Metoprolol Tartrate 50 Mg Tablet 1 Tab PO BID Sertraline Hcl 100 Mg Tablet 100 Mg PO 2TABS PO DAILY Aspirin 81 Mg Tab.chew 1 Tab PO DAILY Vitals/I & O Vital Sign - Last 24 Hours 09/25/19 09/25/19 09/25/19 09/25/19 09:57 09:58 09:58 11:00 Temp 97.8 97.8 Pulse 75 75 75 60 Resp 18 B/P (MAP) 170/68 170/68 170/68 140/58 (85) Pulse Ox 98 O2 Delivery Room Air 09/25/19 09/25/19 09/25/19 09/25/19 15:00 19:15 20:00 21:31 Temp 99.2 99.2 Pulse 71 79 79 Resp 18 17 B/P (MAP) 93/63 (73) 127/58 (81) 127/58 Pulse Ox 96 97 O2 Delivery Room Air Room Air 09/25/19 09/25/19 09/26/19 09/26/19 21:32 23:20 03:20 07:00 Temp 99.6 98.6 99.0 99.6 98.6 99.0 Pulse 79 80 76 75 Resp 17 17 18 B/P (MAP) 127/58 163/61 (95) 117/66 (83) 154/60 (91) Pulse Ox 96 98 98 O2 Delivery Room Air Room Air Room Air 09/26/19 09/26/19 09/26/19 09/26/19 07:30 08:12 08:13 08:13 Pulse 75 75 75 B/P (MAP) 154/60 154/60 154/90 O2 Delivery Room Air Intake and Output 12/17/19 12/17/19 12/18/19 15:00 23:00 07:00 Intake Total 0 ml 200 ml Output Total 100 ml Balance 0 ml -100 ml 200 ml KOSTAS SEARS MD Sep 26, 2019 09:09
[2019-09-26] MEDS: ONDANSETRON ODT 4 MG TAB.RAPDIS. PO PRN (10:19)
[2019-09-26 11:00] VITALS: BP 156/64
--- NOTE | 2019-09-26 14:07 | PDOC ---
[facility] PROGRESS NOTE Chief Complaint Chief Complaint A/P: Diabetic ketoacidosis - will search for infectious cause, UA, blood cultures vs possible opdivo side effect (this is relatively common in general population, but given how long she has been on opdivo this is difficult to say). DKA protocol, fluids Curwx-ld-jzmlsby kidney injury - will give aggressive IVF for tonight. Likely vasomotor nephropathy from poor PO intake Stage IV adenocarcinoma of lung - with h/o significant pericardial effusion s/p pericardial window with progressive disease despite immunotherapy with Opdivo, December 2018 with symptomatic disease in the right vertebral body of L3, central sacrum and left iliac bone s/p 10 radiation treatments Metabolic acidosis - likely from DKA, will check lactate as well. No respiratory component Hypomagnesemia - DKA related, will replace Anemia - likely of chronic disease with cancer, CKD, will not get iron studies CAD s/p stenting - cont meds HTN - cont meds Acute encephalopathy - likely DKA vs opioid dosing related. Will obtain head imaging if she continues to have issues after gap has closed FEN - ADA diet PPX - heparin TID FULL CODE Dispo - ICU for DKA. Can downgrade to med/surg CC time 57 minutes History of Present Illness History of Present Illness Ms Landeros is a 63 yo F w/ PMHx CAD s/p stenting, Lung Ca stage IV adenocarcinoma s/p chemo, rad x (on opdivo currently), DM1 (since age 18), HTN who presents with report of hyperglycemia last 3 days nausea and vomiting that started this morning. Patient indicates that she has had several episodes of vomiting. Patient reportedly has history of metastatic lung cancer she has had difficulty in managing her blood sugars for quite some time now. Her is bedside with a log of blood glucose. She has not had 1 episode of DKA since she was initially diagnosed. Her notes progressively higher doses of insulin the past 3 days have not dropped her blood sugar and she has not eaten at all for the past 36 hours. She was constipated from recent opioid script and has been having difficulty with BM, but took a miralax dose and suppository yesterday with some relief. She denies any chest pain or shortness of breath. She also denies any abdominal pain, but she does note recent lower back pain that has been progressive and she was recently started on hydrocodone for presumptive bony mets for which she has also previously received radiation therapy. She has also been on Opdivo every two weeks, she states for about 2 years, last dose last week. No prior DKA since starting opdivo. Patient states she has had no fever. She does feel chills however. Her is concerned that she has been having weakness, tremors and confusion the past few days as well. Labs notable for Hb 10.1. ABG 7.28/20/109. Mag 1.5, Na, 134, K 4, Cl 97, CO2 11, BUN 38, Cr 2.9, AG - 26 with ketones in blood. Glucose 371. She was started on IVF by ED and called for insulin GTT and ICU admission for DKA. Gap closed overnight. More alert this morning, just sleepy. Labs improved. She is not eating her breakfast due to drowsiness. She occasionally thinks she is in [place]. plan: Await Heme/onc recs CT head [id number] Patient seen and examined Chart reviewed Seems to be at baseline We'll discharge Vitals/I&O Vitals/I&O: Vital Signs Date Time Temp Pulse Resp B/P (MAP) Pulse Ox O2 Delivery O2 Flow Rate FiO2 09/26/19 11:00 98.8 84 18 156/64 (94) 98 Room Air 98.8 I & O 09/25/19 09/25/19 09/26/19 15:00 23:00 07:00 Intake Total 0 ml 200 ml Output Total 100 ml Balance 0 ml -100 ml 200 ml Physical Exam General: Alert, Oriented X3, No acute distress Heart: Normal S1, Normal S2 Lungs: Clear, Other Abdomen: Normal bowel sounds, Soft Extremities: No clubbing, No cyanosis Skin: No rashes, No breakdown Labs Labs: Laboratory Tests Test 09/25/19 17:22 09/25/19 20:23 09/26/19 07:47 09/26/19 11:53 Glucose (Fingerstick) 158 mg/dL (70-99) 219 mg/dL (70-99) 248 mg/dL (70-99) 104 mg/dL (70-99) Assessment and Plan Assessmemt and Plan Problems Medical Problems: (1) Ldnol-su-yghhfdt kidney injury Status: Acute (2) Diabetic ketoacidosis Status: Acute Plan Discharge if okay with consultants Comment Review of Relevant I have reviewed the following items chivo (where applicable) has been applied. SKYLER BIRD III DO Sep 26, 2019 14:07
[2019-09-26] MEDS ORDERED: HEPARIN PF 500 UNIT/5 ML DISP.SYRIN. IVP ONE (14:30)
[2019-09-26 15:00] VITALS: BP 155/71
--- NOTE | 2019-09-26 15:59 | NUR ---
SW following. Discussed with RN. Pt discharging home today with self care as her can take care of her. Pt and aware they can get home health orders from their PCP if they change their mind. No further SW needs.
--- NOTE | 2019-09-26 16:19 | NUR ---
Discharge Note: JACQUES BEARD Discharge instructions and discharge home medications reviewed with Patient and a copy given. All questions have been answered and understanding verbalized. The following instructions and handouts were given: information about kidney disease/failure, medications, follow up appointments, etc. Called in prescription for zofran 4mg q6 PRN to [facility] pharmacy per Dr. Keen/patient request. Discontinued lines and drains: right chest port a cath heparin locked and then de-accessed. Patient discharged to home with self care with , wheelchair used for mobility to discharge vehicle.
--- NOTE | 2019-09-26 21:22 | DS ---
DATE OF DISCHARGE: 09/26/2019 ADMISSION DIAGNOSIS: Diabetic ketoacidosis. DISCHARGE DIAGNOSIS: Resolving diabetic ketoacidosis. HOSPITAL COURSE: The patient is a pleasant 63-year-old female who presented with DKA. We admitted her and gave her DKA protocol. Today, her anion gap cleared, her sugars were normal. I saw and examined her. PHYSICAL EXAMINATION: HEART: Tones were normal. LUNGS: Clear. ABDOMEN: Soft. EXTREMITIES: No edema. We discharged to home. DISPOSITION: Home. ACTIVITY: As tolerated. DIET: Low sodium. MEDICATIONS: Please see MRAD. TOTAL TIME: 32 minutes. NIAL Coleen BIRD DO DR: YESI/kaz JOB#: [id number] / [id number]
== END 2019-09-26 16:10 | disposition home or self-care (01) | DRG 682 ==
LOC: ER 10:58 → 1 WEST ICU 12:13 → 4 NORTH 09-24 21:40
PROVIDERS: ADMIT Internal Medicine; ATTEND Internal Medicine
DX: N17.0 Acute kidney failure with tubular necrosis (principal); E10.10 Type 1 diabetes mellitus with ketoacidosis without coma; C34.32 Malignant neoplasm of lower lobe, left bronchus or lung; C79.51 Secondary malignant neoplasm of bone; J91.0 Malignant pleural effusion; G93.40 Encephalopathy, unspecified; D63.8 Anemia in other chronic diseases classified elsewhere; E10.22 Type 1 diabetes mellitus with diabetic chronic kidney disease; E83.42 Hypomagnesemia; I25.10 Atherosclerotic heart disease of native coronary artery without angina pectoris; F32.9 Major depressive disorder, single episode, unspecified; I12.9 Hypertensive chronic kidney disease with stage 1 through stage 4 chronic kidney disease, or unspecified chronic kidney disease; K59.00 Constipation, unspecified; N18.9 Chronic kidney disease, unspecified; Z79.4 Long term (current) use of insulin; Z79.82 Long term (current) use of aspirin; Z79.899 Other long term (current) drug therapy; Z80.1 Family history of malignant neoplasm of trachea, bronchus and lung; Z80.49 Family history of malignant neoplasm of other genital organs; Z80.52 Family history of malignant neoplasm of bladder; Z85.118 Personal history of other malignant neoplasm of bronchus and lung; Z87.891 Personal history of nicotine dependence; Z92.21 Personal history of antineoplastic chemotherapy; Z95.5 Presence of coronary angioplasty implant and graft; F41.9 Anxiety disorder, unspecified
CPT/HCPCS: 36415; 36600; 70450; 80048; 80053; 81001; 82010; 82805; 82962; 83036; 83605; 83690; 83735; 84100; 84443; 85007; 85025; 87040; 87086; 93005; 96361; 96365; 96375; J1644; J1815; J2405; J3475; J3480; J7030; J7042; J7050; Q0162; 97116; 97530; 97535; 99285-25; G0378